=== PATIENT | female | born 1990 | race Caucasian/White ===

== ENCOUNTER → 2018-06-30 10:22 | Outpatient (CLI) | payer OTHER, SELFPAY ==
--- NOTE | 2018-06-30 10:27 | RAD_ITS ---
STUDY: X-RAY - LUMBAR SPINE REASON FOR EXAM: Female, 27 years old. Back pain TECHNIQUE: 5 view(s) of the lumbar spine were obtained. COMPARISON: None FINDINGS: Normal lumbar lordosis. There is no substantial scoliosis. There is a normal alignment of the vertebrae. Normal vertebral bodies and endplates. Normal disc space heights. There is no demonstrated fracture. There is no demonstrated spondylolysis of the pars interarticulares. The soft tissue structures are unremarkable. RAD/L/S Spine Min 4 Views IMPRESSION: Normal x-ray examination of the lumbar spine. Electronically Signed: William Dawson MD at 21:40 EST , Service support ,
== END ==
PROVIDERS: Family Provider Internal Medicine; PCP Internal Medicine; Visit Provider Family Medicine
DX: S33.5XXA Sprain of ligaments of lumbar spine, initial encounter (principal)
CPT/HCPCS: 72110

== ENCOUNTER 2018-07-12 18:30 | Outpatient (RCR) | payer OTHER, SELFPAY | END 2018-07-12 19:00 | disposition home or self-care (01) | LOC: PT 18:30 | PROVIDERS: Family Provider Family Medicine; PCP Family Medicine; Referring Provider Family Medicine; Visit Provider Family Medicine | DX: S33.5XXD Sprain of ligaments of lumbar spine, subsequent encounter (principal) ==

== ENCOUNTER → 2018-07-17 16:49 | Outpatient (CLI) | payer OTHER, SELFPAY ==
[2018-07-17 15:28] VITALS: BMI 32.0
[2018-07-19 17:13] LABS: HPV Reflexed? NOT INDICATED
== END ==
PROVIDERS: Family Provider Family Medicine; PCP Family Medicine; Referring Provider Obstetrics & Gynecology; Visit Provider Obstetrics & Gynecology
DX: Z12.4 Encounter for screening for malignant neoplasm of cervix (principal)
CPT/HCPCS: 87624; 88175; G0145

== ENCOUNTER → 2019-01-25 | Outpatient (CLI) | payer OTHER, SELFPAY ==
[2018-07-17 15:28] VITALS: BMI 32.0
[2019-01-25 17:31] LABS: Absolute Lymphocyte Count 3.81 X10^3/uL (0.83-4.51); Basophil# 0.03 X10^3/uL; Basophil% 0.3 % (0-1); Hematocrit 36.4 % (37-47); Hemoglobin 12.3 g/dL (12.0-15.0); Lymphocyte # 3.81 X10^3/ul (4.0); Lymphocyte % 38.4 % (19-41); Mean Corp Hgb Conc 33.8 g/dL (32-36); Mean Corpuscular Volume 85.8 fL (81-99); Mean Platelet Vol. 9.7 fl (6.2-12.0); Monocyte# 0.71 X10^3/uL; Monocyte% 7.2 % (0-10); NRBC Flagged by Analyzer 0 % (0-5); Neutrophil # 5.02 X10^3/uL (2.7-7.7); Neutrophil % 50.7 % (47-70); Platelet Count 404 K/mm3 (150-450); RBC Distribution Width CV 12.8 % (11.6-14.6); RBC Distribution Width SD 39.7 fl (35.1-43.9); Red Blood Count 4.24 M/mm3 (4.2-5.4); White Blood Count 9.9 K/mm3 (4.4-11.0)
[2019-01-25 18:18] LABS: Thyroid Stim Hormone (TSH) 1.39 uIU/mL (0.358-3.74)
== END | disposition home or self-care (01) ==
LOC: LAB.FUTURE 16:56
PROVIDERS: Family Provider Family Medicine; PCP Family Medicine; Visit Provider Family Medicine
DX: R53.83 Other fatigue (principal)
CPT/HCPCS: 36415; 84443; 85025

== ENCOUNTER → 2019-07-12 | Outpatient (CLI) | payer OTHER, SELFPAY ==
[2018-07-17 15:28] VITALS: BMI 32.0
--- NOTE | 2019-07-12 13:50 | US_ITS ---
STUDY: FIRST TRIMESTER OBSTETRICAL ULTRASOUND REASON FOR EXAM: Female, 28 years old VIABILITY LMP: May 24, 2019. TECHNIQUE: Transvaginal TECHNICAL QUALITY: Adequate. PRIOR ULTRASOUND: None. FINDINGS: There is visualization of a single gestational sac in a normal intrauterine position. The mean sac diameter (MSD) measures 2.56 cm, indicating an estimated gestational age (EGA) of 7 weeks, 5 days. The gestational sac shape is within normal limits. There is a visualized yolk sac. The yolk sac measures 4.3 mm. The placenta is non-visualized. There is visualization of a live embryo. The crown-rump length (CRL) measures 9 mm, indicating an estimated gestational age (EGA) of 7 weeks, 0 days. There is demonstrated cardiac activity with a heart rate of 119 bpm. The estimated gestation age (EGA) by LMP is 7 weeks, 0 days. The estimated date of delivery (AFUA) by LMP is February 28, 2020. The estimated gestation age (EGA) by US is 7 weeks, 3 days. The estimated date of delivery (AFUA) by US is February 25, 2020. The uterus measures 8.6 cm x 5.9 cm x 4.2 cm. There is no demonstrated uterine fibroid. The cervix is closed. The right ovary measures 3.7 cm x 1.6 cm x 2 cm.. There is a 1.2 cm x 0.8 cm x 1 cm follicle within it. There is no visualized right adnexal mass or complex lesion. The left ovary measures 4.2 cm x 3.5 cm x 2.4 cm. There is a 2 cm x 1.7 cm by 1.4 cm hypoechoic nodule within it most likely representing a involuting corpus luteum cyst. There is no visualized left adnexal mass or complex lesion. There is no fluid in the cul de sac. US/Init OB < 14Wks US IMPRESSION: Single live intrauterine gestation with a mean gestational age of 7 weeks and 3 days. Dominant follicle in the right ovary. Findings suggest left involuting corpus luteum cyst in the left ovary. Electronically Signed: Hermes Elkins, at 15:03 EST , Service support ,
== END | disposition home or self-care (01) ==
PROVIDERS: PCP Family Medicine; Referring Provider Obstetrics & Gynecology; Visit Provider Obstetrics & Gynecology
DX: O20.0 Threatened abortion (principal)
CPT/HCPCS: 76801

== ENCOUNTER → 2019-08-02 | Outpatient (CLI) | payer OTHER, SELFPAY ==
[2019-08-02 14:55] VITALS: BMI 32.0
[2019-08-02 15:28] LABS: Basophil# 0.04 X10^3/uL; Basophil% 0.2 % (0-1); Eosinophil# 0.28 X10^3/uL; Eosinophils% 1.7 % (0-5); Hematocrit 34.2 % (37-47); Hemoglobin 11.8 g/dL (12.0-15.0); Lymphocyte % 23.5 % (19-41); Mean Corp Hgb Conc 34.5 g/dL (32-36); Mean Corpuscular Hgb 28.9 pg (27.0-32.0); Mean Corpuscular Volume 83.6 fL (81-99); Mean Platelet Vol. 9.2 fl (6.2-12.0); Monocyte# 0.98 X10^3/uL; Monocyte% 6.1 % (0-10); NRBC Flagged by Analyzer 0 % (0-5); Neutrophil # 10.99 X10^3/uL (2.7-7.7); Platelet Count 404 K/mm3 (150-450); RBC Distribution Width CV 12.7 % (11.6-14.6); RBC Distribution Width SD 38.5 fl (35.1-43.9); Red Blood Count 4.09 M/mm3 (4.2-5.4); White Blood Count 16.2 K/mm3 (4.4-11.0)
[2019-08-02 16:05] LABS: Glucose Challenge Gest 1H 50g 110 mg/dL (70-140)
[2019-08-02 16:58] LABS: NATERA MAILED SPECIMEN
[2019-08-02 17:52] LABS: Amphetamine Urine VISTA NEGATIVE (<1000 ng/mL); Barbiturate Urine VISTA NEGATIVE (< 200 ng/mL); Benzodiazepine Urine VISTA NEGATIVE (< 200 ng/mL); Cocaine Urine VISTA NEGATIVE (< 300 ng/mL); Ecstacy Urine VISTA NEGATIVE (< 500 ng/mL); Methadone Urine VISTA NEGATIVE (< 300 ng/mL); PCP Urine VISTA NEGATIVE (< 25 ng/mL); THC Urine VISTA NEGATIVE (< 50 ng/mL); Vista UDS pH Range 5
[2019-08-02 21:20] LABS: Chlamydia Trachomatis by PCR Negative (Negative); Neisserai gonorrhoeae by PCR Negative (Negative); Probe Check PASS; Sample Adequacy Control PASS; Specimen Processing Control PASS
[2019-08-03 09:59] LABS: HIV - WCH Non-Reactive (Nonreactive); Hepatitis B Surface Antigen Non-Reactive (Nonreactive); Hepatitis C Antibody Non-Reactive (Nonreactive); Rubella IgG 7.8 IU/mL
[2019-08-09 02:23] LABS: Rapid Plasmin Reagin (RPR) NONREACTIVE (NONREACTIVE)
== END | disposition home or self-care (01) ==
PROVIDERS: PCP Family Medicine; Referring Provider Obstetrics & Gynecology; Visit Provider Obstetrics & Gynecology
DX: Z34.90 Encounter for supervision of normal pregnancy, unspecified, unspecified trimester (principal)
CPT/HCPCS: 36415; 80307; 82950; 85025; 86592; 86703; 86762; 86803; 86850; 86900; 86901; 87086; 87088; 87340; 87491; 87591

== ENCOUNTER → 2019-09-26 | Outpatient (CLI) | payer OTHER, SELFPAY ==
[2019-08-30 13:10] VITALS: BMI 32.0
--- NOTE | 2019-09-26 13:27 | US_ITS ---
STUDY: SECOND AND THIRD TRIMESTER OBSTETRICAL ULTRASOUND - LIMITED REASON FOR EXAM: Female, 29 years old spotting LMP: May 24, 2019. PRIOR ULTRASOUND: Comparison is made with prior study dated July 12, 2019. TECHNIQUE: Transabdominal and Transvaginal TECHNICAL QUALITY: Adequate. FINDINGS: There is a single intrauterine fetus. The fetus is in a transverse lie with the head on the maternal right side. There is demonstrated cardiac activity with a heart rate of 156 bpm. There is a normal amniotic fluid volume. The largest amniotic fluid pocket measures 5.6 cm x 3.5 cm. The amniotic fluid index (MANUEL) is within normal limits. The placenta is anterior with a complete previa. There are Grade 0 placental changes. The cervix measures 3.8 cm in length. BIOMETRY: BPD: 4.13 cm: 18 weeks, 4 days HC: 15.28 cm: 18 weeks, 2 days AC: 13.42 cm: 19 weeks, 0 days FL: 2.54 cm: 17 weeks, 5 days Age by LMP: 17 weeks, 6 days. AFUA by LMP: February 28, 2020. age by prior US: 18 weeks, 2 days. AFUA by prior US: February 25, 2020. age by current US: 18 weeks, 3 days. AFUA by current US: February 24, 2020. Estimated weight: 235 grams, +/- 34 grams, 74 percentile. US/OB Limited With Biometrics IMPRESSION: Single live uterine gestation with a mean gestational age of 18 weeks and 2 days. There is a complete anterior placenta previa. Electronically Signed: Hermes Elkins, at 14:52 EDT , Service support ,
== END | disposition home or self-care (01) ==
LOC: US 13:27
PROVIDERS: PCP Family Medicine; Referring Provider Obstetrics & Gynecology; Visit Provider Obstetrics & Gynecology
DX: O46.90 Antepartum hemorrhage, unspecified, unspecified trimester (principal); Z3A.00 Weeks of gestation of pregnancy not specified
CPT/HCPCS: 76816; 76817

== ENCOUNTER → 2019-11-01 | Outpatient (CLI) | payer OTHER, SELFPAY ==
[2019-08-30 13:10] VITALS: BMI 32.0
--- NOTE | 2019-11-01 16:26 | US_ITS ---
STUDY: SECOND AND THIRD TRIMESTER OBSTETRICAL ULTRASOUND REASON FOR EXAM: Female, 29 years old LIGHT SPOTTING X 2 DAYS LMP: 05/24/2019 TECHNIQUE: Transabdominal TECHNICAL QUALITY: Adequate. PRIOR ULTRASOUND: 09/26/2019. FINDINGS: There is a single intrauterine fetus. The fetus is in a cephalic presentation. There is demonstrated cardiac activity with a heart rate of 152 bpm. There is a normal amniotic fluid volume. The largest amniotic fluid pocket measures 3.6 cm. The placenta is anterior in location and is not low lying. There are Grade 1 placental changes. The cervix measures 3.1 cm in length. The bilateral adnexal regions are normal. BIOMETRY: BPD: 5.5: 22 weeks, 5 days HC: 21.8: 23 weeks, 6 days AC: 18.7: 23 weeks, 4 days FL: 4.4: 24 weeks, 4 days CI: FL/BPD: FL/HC: FL/AC: HC/AC: age by current US: 23 weeks, 5 days. AFUA by current US: 02/23/2020. Estimated weight: 637 grams, +/- 93 grams, 84 %. age by prior US: weeks, days. AFUA by prior US: . Age by LMP: 23 weeks, 0 days. AFUA by LMP: 02/28/2020. US/OB Limited With Biometrics IMPRESSION: Single live fetus in a vertex presentation. survey not performed on this exam. Placenta is grade 1 and is not low-lying. Cervix is closed. age by current US: 23 weeks, 5 days. AFUA by current US: 02/23/2020. Estimated weight: 637 grams, +/- 93 grams, 84 %. Electronically Signed: Nitesh Lee MD at 19:12 EDT , Service support ,
== END | disposition home or self-care (01) ==
PROVIDERS: PCP Family Medicine; Referring Provider Obstetrics & Gynecology; Visit Provider Obstetrics & Gynecology
DX: O44.12 Complete placenta previa with hemorrhage, second trimester (principal); Z3A.00 Weeks of gestation of pregnancy not specified
CPT/HCPCS: 76816; 76817

== ENCOUNTER → 2019-12-05 | Outpatient (CLI) | payer OTHER, SELFPAY ==
[2019-11-08 15:31] VITALS: BMI 32.0
[2019-12-05 14:42] LABS: Absolute Lymphocyte Count 3.11 X10^3/uL (0.83-4.51); Absolute Neutrophil Count 11.2 X10^3/uL (2.0-7.7); Basophil# 0.05 X10^3/uL; Basophil% 0.3 % (0-1); Eosinophil# 0.17 X10^3/uL; Eosinophils% 1.1 % (0-5); Hematocrit 30.3 % (37-47); Hemoglobin 10.1 g/dL (12.0-15.0); Lymphocyte # 3.11 X10^3/ul (4.0); Lymphocyte % 19.2 % (19-41); Mean Corp Hgb Conc 33.3 g/dL (32-36); Mean Corpuscular Hgb 29.1 pg (27.0-32.0); Mean Corpuscular Volume 87.3 fL (81-99); Mean Platelet Vol. 9.5 fl (6.2-12.0); Monocyte# 1.04 X10^3/uL; Monocyte% 6.4 % (0-10); NRBC Flagged by Analyzer 0 % (0-5); Neutrophil # 11.22 X10^3/uL (2.7-7.7); Neutrophil % 69.3 % (47-70); Platelet Count 361 K/mm3 (150-450); RBC Distribution Width CV 13.6 % (11.6-14.6); RBC Distribution Width SD 42.1 fl (35.1-43.9); Red Blood Count 3.47 M/mm3 (4.2-5.4); White Blood Count 16.2 K/mm3 (4.4-11.0)
[2019-12-05 14:53] LABS: Glucose Challenge Gest 1H 50g 135 mg/dL (70-140)
== END | disposition home or self-care (01) ==
LOC: PAVLAB 14:19
PROVIDERS: PCP Family Medicine; Referring Provider Obstetrics & Gynecology; Visit Provider Obstetrics & Gynecology
DX: Z34.90 Encounter for supervision of normal pregnancy, unspecified, unspecified trimester (principal)
CPT/HCPCS: 36415; 82950; 85025

== ENCOUNTER → 2019-12-07 | Outpatient (CLI) | payer OTHER, SELFPAY ==
[2019-12-05 16:25] VITALS: BMI 32.0
[2019-12-07 08:07] LABS: Glucose GTT-Gestation. Fasting 84 mg/dL (<105)
[2019-12-07 08:24] LABS: Glucose GTT-Gestational 1 Hr 159 mg/dL (<190)
[2019-12-07 10:07] LABS: Glucose GTT-Gestational 2 Hr 148 mg/dL (<165)
[2019-12-07 11:08] LABS: Glucose GTT-Gestational 3 Hr 55 L (<145)
== END | disposition home or self-care (01) ==
LOC: LAB 06:46
PROVIDERS: PCP Family Medicine; Referring Provider Nurse Practitioner Women's Health; Visit Provider Nurse Practitioner Women's Health
DX: O99.810 Abnormal glucose complicating pregnancy (principal); Z3A.00 Weeks of gestation of pregnancy not specified
CPT/HCPCS: 36415; 82951; 82952

== ENCOUNTER → 2020-02-01 | Outpatient (CLI) | payer OTHER, SELFPAY ==
[2020-02-01 15:51] VITALS: BMI 32.0
== END | disposition home or self-care (01) ==
LOC: LABSPEC 16:27
PROVIDERS: PCP Family Medicine; Referring Provider Obstetrics & Gynecology; Visit Provider Obstetrics & Gynecology
DX: Z34.00 Encounter for supervision of normal first pregnancy, unspecified trimester (principal)
CPT/HCPCS: 87077; 87081; 87186

== ENCOUNTER 2020-02-14 12:25 | Outpatient (CLI) | payer OTHER, SELFPAY ==
[2020-02-08 15:12] VITALS: BMI 32.0
[2020-02-14] VITALS (11 sets, daily range): BP systolic 77–136; BP diastolic 40–92; PULSE 83–129; TEMP 36.8; O2SAT 99; BMI 38.2
[2020-02-14 13:07] LABS: Hematocrit 29.8 % (37-47); Hemoglobin 10.4 g/dL (12.0-15.0); Mean Corp Hgb Conc 34.9 g/dL (32-36); Mean Corpuscular Hgb 29.5 pg (27.0-32.0); Mean Corpuscular Volume 84.7 fL (81-99); Platelet Count 338 K/mm3 (150-450); RBC Distribution Width CV 13.8 % (11.6-14.6); RBC Distribution Width SD 42.2 fl (35.1-43.9); Red Blood Count 3.52 M/mm3 (4.2-5.4); White Blood Count 14.2 K/mm3 (4.4-11.0)
[2020-02-14 13:15] LABS: Prothrombin Time (Protime)PT. 12.3 SECONDS (11.7-14.9)
[2020-02-14 13:20] LABS: AST(SGOT) 15 U/L (15-37); Alanine Aminotransfer ALT/SGPT 18 U/L (13-56); Creatinine, Serum 0.86 mg/dL (0.55-1.02); EST Glomerular Filtration Rate 83 mL/min (>60); Est Glom Filt Rate - Afr Amer 101 mL/min (>60); Estimated Creatinine Clearance 94.71 ml/min; Protein, Urine (Random) 14.1 mg/dL (<11.9); Protein:Creat Ratio 266 mg/g CRE (0-200); Uric Acid 5.4 mg/dL (2.6-6.0)
--- NOTE | 2020-02-14 13:23 | EKG12_ITS ---
Test Reason : Blood Pressure : / mmHG Vent. Rate : 096 BPM Atrial Rate : 096 BPM P-R Int : 138 ms QRS Dur : 086 ms QT Int : 350 ms P-R-T Axes : 027 024 -01 degrees QTc Int : 442 ms Normal sinus rhythm Normal ECG No previous ECGs available Confirmed by JAZMYNE MOY, REBECCA ([id number]), commissioning editor JAZMINE KINGSLEY ([id number]) on 02/19/2020 12:44:30 PM Referred By: Michelle Palomares Confirmed By:REBECCA SAMANO MD
--- NOTE | 2020-02-14 14:08 | OB.TRI.NOTE ---
- Problem List (1) Transient hypertension of in third trimester Status: Acute (2) Abnormal glucose tolerance affecting , antepartum Status: Acute Comment: 3 hr. normal (3) Anemia affecting , antepartum Status: Acute Comment: daily Fe alternate from PNV, repeat cbc 4 weeks (4) Anxiety during Status: Acute Comment: zoloft, counseling encouraged (5) Echogenic intracardiac focus of fetus on ultrasound Status: Acute Comment: normal NIPT (6) Family historic risk of congenital abnormality Status: Acute Qualifiers: Fetus number: single or unspecified fetus Qualified Code(s): O35.8XX0 - Maternal care for other (suspected) abnormality and damage, not applicable or unspecified Comment: hemifacial microsomia paternal history. (7) Obesity affecting Status: Acute Qualifiers: Trimester: first trimester Qualified Code(s): O99.211 - Obesity complicating , first trimester Comment: nl 1 tm glucola. encouraged healthy weight gain (8) Positive GBS test Status: Acute Comment: tx PCN in labor (9) Status: Acute Qualifiers: Weeks of gestation: 37 weeks Qualified Code(s): Z3A.37 - 37 weeks gestation of Comment: NIPT low risk. declined carrier and ntd screening. anatomy reviewed. (10) Skin lesion of hand Status: Acute Comment: Raised lesion noted on thenar eminence of left hand with darkened external skin and pearly center. PCP previously evaluated and said to follow, but area has become larger. Referral placed to dermatology. (11) Supervision of high-risk Status: Acute Comment: PRR AFUA 02/28/20 girl [place] Jonah (12) Pyelectasis of fetus on ultrasound Status: Resolved Comment: FU US @ 32 wks per MFM, normal NIPT, right kidney 7/6mm and left 4.2mm, rpt US shows resolved per office - awaiting official addendum US 01/02 - resolved History of Present Illness Date of Service: 02/14/20 Was patient seen by the physician?: Yes Reason For Visit: R/O PRE E Date of Service: 02/14/20 Final AFUA: 02/28/20 Gestational age: 38 Weeks and 0 Days History of Present Illness: 29yo G1 at 38 weeks gestation presenting with elevated BPs at home. Denies headaches, vision changes, chest pain, shortness of breath, RUQ pain. Does endorse mild reflux. While in triage, she had an episode of tachycardia, diaphoresis, and hypotension. This resolved spontaneously. There were no identifiable triggers for the episode. Allergies No Known Allergies Allergy (Verified 02/14/20 12:46) - Pertinent Past Medical History Medical History: Past Medical History (Last Reviewed 02/08/20 @ 15:11 by Kavitha Beebe) Anemia Anxiety Surgical History: Past Surgical History (Last Reviewed 02/08/20 @ 15:11 by Kavitha Beebe) History of wisdom tooth extraction, class II edentulism Laboratory Studies: Laboratory Tests 02/14/20 02/14/20 02/14/20 Range/Units 12:55 12:55 12:55 WBC (4.4-11.0) K/mm3 RBC (4.2-5.4) M/mm3 Hgb (12.0-15.0) g/dL Hct (37-47) % MCV (81-99) fL MCH (27.0-32.0) pg MCHC (32-36) g/dL RDW Std Deviation (35.1-43.9) fl RDW Coeff of Tali (11.6-14.6) % Plt Count (150-450) K/mm3 MPV (6.2-12.0) fl PT 12.3 (11.7-14.9) SECONDS INR 1.0 APTT 25.0 (24.1-36.2) Seconds Creatinine 0.86 (0.55-1.02) mg/dL Estim Creat Clear Calc 94.71 ml/min Est GFR (MDRD) Af Amer 101 (>60) mL/min Est GFR (MDRD) Non-Af 83 (>60) mL/min Uric Acid 5.4 (2.6-6.0) mg/dL AST 15 (15-37) U/L ALT 18 (13-56) U/L U Random Total Protein 14.1 H (<11.9) mg/dL Urine Creatinine 53.10 (NO RANGE EST.) mg/dL Protein/Creatinin Ratio 266 H (0-200) mg/g CRE 02/14/20 Range/Units 12:55 WBC 14.2 H (4.4-11.0) K/mm3 RBC 3.52 L (4.2-5.4) M/mm3 Hgb 10.4 L (12.0-15.0) g/dL Hct 29.8 L (37-47) % MCV 84.7 (81-99) fL MCH 29.5 (27.0-32.0) pg MCHC 34.9 (32-36) g/dL RDW Std Deviation 42.2 (35.1-43.9) fl RDW Coeff of Tali 13.8 (11.6-14.6) % Plt Count 338 (150-450) K/mm3 MPV 10.0 (6.2-12.0) fl PT (11.7-14.9) SECONDS INR APTT (24.1-36.2) Seconds Creatinine (0.55-1.02) mg/dL Estim Creat Clear Calc ml/min Est GFR (MDRD) Af Amer (>60) mL/min Est GFR (MDRD) Non-Af (>60) mL/min Uric Acid (2.6-6.0) mg/dL AST (15-37) U/L ALT (13-56) U/L U Random Total Protein (<11.9) mg/dL Urine Creatinine (NO RANGE EST.) mg/dL Protein/Creatinin Ratio (0-200) mg/g CRE Review of Systems Constitutional: Denies: Chills, Fever HEENT: Denies: Head Aches, Visual Changes Cardiovascular: Denies: Chest Pain, Palpitations Respiratory: Denies: Cough, Shortness of Breath Gastrointestinal: Denies: Abdominal Pain, Nausea, Vomiting Genitourinary: Denies: Dysuria Neurological: Denies: Numbness, Tingling Psychiatric: Denies: Anxiety, Depression Physical Exam Vitals: Vital Signs Temp Pulse BP Pulse Ox 98.2 F 93 125/70 H 99 02/14/20 12:39 02/14/20 13:59 02/14/20 13:59 02/14/20 12:39 General: Alert, Oriented x3, Cooperative, No apparent distress, Well developed, Well nourished HEENT: Atraumatic, PERRLA, EOMI, Normocephalic Cardiovascular: Regular rate, Regular Rhythm Lungs: Normal air movement Abdomen: Soft, Non Tender, Non-Distended, Gravid, Appropriate for Gestational Age Neurological: Cranial nerves II-XII grossly intact, Neuro grossly intact Estimated gestational size: Appropriate for gestational size Presentation: Cephalic NST - FHR Rate Baby A Baseline: 150 Variability:: Moderate Accelerations:: 15 x 15 Decelerations:: None NST Reactive:: Yes FHR Category:: Category I Uterine Activity:: none Impression/Plan 29yo G1 at 38 weeks presenting for elevated BPs 1. Transient hypertension - increased BPs at home. Normotensive throughout triage course - Asymptomatic - Labs normal - NST reactive - Patient had episode of tachycardia and diaphoresis in triage. This resolved spontaneously and she was asymptomatic aside from sweats. Hypotensive during episode. Most consistent with vagal episode. After this, vitals remained normal and FHT remained Cat I. - Return precautions reviewed. Discharged to home in stable condition Multi Select Codes - Visit Charges Office Visit/Consults: 82891 OV L3 Est - Urinary/Genital Urinary/Genital CPT Codes: 92722-09 non-stress test Interp
[2020-02-14 14:31] LABS: Mucous, Urine 0 SEEN /hpf (<or=2+); Red Blood Cells-Urine 0 SEEN /hpf (0-5)
[2020-02-14 14:41] LABS: Color, Urine Straw (Yellow); Glucose, Dipstick Normal (Normal); Ketone-Dipstick Negative (Negative); Leukocyte Esterase-Dipstick 25 /ul (Negative); Nitrite-Dipstick Negative (Negative); Occult Blood-Urine Negative /ul (Negative); Protein-Dipstick 30 mg/dl (Negative); Urine Bilirubin Dipstick Negative (Negative); Urine Clarity Clear (Clear); Urine Urobilinogen Normal (Normal)
[2020-02-14 14:46] LABS: Bedside Glucose 80 mg/dL (70-110)
[2020-02-14 14:50] LABS: Squamous Epithelial Cells - UA 0-5 SEEN /hpf (5-10); White Blood Cells 0-5 SEEN /hpf (0-5)
[2020-02-14 14:51] LABS: Bacteria 1+ /hpf (None Seen)
== END 2020-02-14 14:15 | disposition home or self-care (01) ==
PROVIDERS: PCP Family Medicine; Referring Provider Obstetrics & Gynecology; Visit Provider Obstetrics & Gynecology
DX: O16.3 Unspecified maternal hypertension, third trimester (principal); Z3A.38 38 weeks gestation of pregnancy; O26.893 Other specified pregnancy related conditions, third trimester; R61 Generalized hyperhidrosis
CPT/HCPCS: 36415; 59025; 59050; 81001; 82565; 82570; 82962; 84156; 84450; 84460; 84550; 85027; 85610; 85730; 93005; 99218; G0378

== ENCOUNTER 2020-02-15 15:55 | Inpatient (IN) | payer OTHER, SELFPAY ==
[2020-01-17 16:12] VITALS: BMI 32.0
[2020-02-15] VITALS (13 sets, daily range): BP systolic 137–157; BP diastolic 72–96; PULSE 106–121; TEMP 36.6–37.1; O2SAT 98; BMI 38.2
--- NOTE | 2020-02-15 17:11 | HP.PCM_ITS ---
- Problem List (1) Abnormal glucose tolerance affecting , antepartum Status: Acute Comment: 3 hr. normal (2) Anemia affecting , antepartum Status: Acute Comment: daily Fe alternate from PNV, repeat cbc 4 weeks (3) Anxiety during Status: Acute Comment: zoloft, counseling encouraged (4) Echogenic intracardiac focus of fetus on ultrasound Status: Acute Comment: normal NIPT (5) Family historic risk of congenital abnormality Status: Acute Qualifiers: Comment: hemifacial microsomia paternal history. (6) Obesity affecting Status: Acute Qualifiers: Comment: nl 1 tm glucola. encouraged healthy weight gain (7) Positive GBS test Status: Acute Comment: tx PCN in labor (8) Pre-eclampsia during in third trimester, antepartum Status: Acute Comment: Patient with persistent mild range BPs in 140s-150s at home. BP 160/98 in office today. P:C elevated in triage yesterday. Discussed that with persistent elevated BPs at home and severe in office today, recommend induction for PreE without severe features. Discussed if persistently severe, would require mag for seizure ppx. (9) Status: Acute Qualifiers: Comment: NIPT low risk. declined carrier and ntd screening. anatomy reviewed. (10) Skin lesion of hand Status: Acute Comment: Raised lesion noted on thenar eminence of left hand with darkened external skin and pearly center. PCP previously evaluated and said to follow, but area has become larger. Referral placed to dermatology. (11) Supervision of high-risk Status: Acute Comment: PRR AFUA 02/28/20 girl [place] Jonah (12) Transient hypertension of in third trimester Status: Acute (13) Pyelectasis of fetus on ultrasound Status: Resolved Comment: FU US @ 32 wks per MFM, normal NIPT, right kidney 7/6mm and left 4.2mm, rpt US shows resolved per office - awaiting official addendum US 01/02 - resolved History and Physical Date of Admission: 02/15/20 Intake Vital Signs 02/15/20 BMI 38.2 02/15/20 Height 5 ft 7 in 02/15/20 Weight: 246 lb 4 oz 02/15/20 BMI 38.5 02/15/20 BP 160/98 H Intake Visit Reasons: 38 WK [address] Required: No Is patient in pain?: No Allergies No Known Allergies Allergy (Verified 02/14/20 12:46) Medications multivitamin no.47-iron fum 27 mg-folate no.1 1 mg-dha 300 mg capsule 1 cap PO DAILY 08/02/19 [History Confirmed 02/15/20] Pnv No.95/Ferrous Fum/Folic AC [ Vitamin Tablet] 1 tab PO DAILY 02/14/20 [History Confirmed 02/15/20] Sertraline HCl [Zoloft] 50 mg PO DAILY 02/14/20 [History Confirmed 02/15/20] nitrofurantoin monohydrate/macrocrystals 100 mg capsule 100 mg PO Q12H 7 Days #14 cap 02/14/20 [Rx Confirmed 02/15/20] Last Menstral Period: 05/24/19 Zika: Zika virus screening: Negative : No PFSH PFSH Medical History Anemia (Acute) Anxiety (Acute) Surgical History History of wisdom tooth extraction, class II edentulism (Acute) Social History (Updated 02/15/20 @ 16:[address] Michelle Palomares MD) adopted: No household members: spouse housing: house current occupational status: employed current occupation: [employer] pets and animals: Yes history of recent travel: No sexually active: Yes Smoking Status: Never smoker second hand exposure: No alcohol intake: never substance use type: does not use caffeine: Yes what type of physical activity do you participate in: walking seatbelt use: always do you feel safe at home: Yes additional social history: Jonah- [employer] Pregancy History 1 Elective abortions Hx Para Spontaneous abortions Hx # Term Pregnancies Ectopic pregnancies Hx # Pregnancies Multiple births # of living children HPI 38 WK OB: Details: GELACIO FERRER is a 29 year old who presents for routine OB visit. BP severe range in office. BPs persistently 140s-150s/90s at home. Had headache last night, but none currently. Denies vision changes, chest pain, shortness of breath, lightheadedness, dizziness. OB Visit AFUA Calculator Estimated Delivery Date Method Current WG Current Estimate 02/28/20 LMP (Certain) 38w 1d Other Estimates 02/25/20 Ultrasound #1 38w 4d Expected Delivery Route/Plan Labor Preferences- CB/BF classes: 01/04 classes labor support person: Jonah labor intervention preferences: desires minimal intervention with hydrotherapy pain management options preferred: desires natural labor, but open to epidural cut cord/dad catch: yes cord : yes - wants to pump PP control planned: OCPs discussed possible routes of delivery and associated risks: discussed possible delivery modalities and possible indications for each including R/B/A of , VAVD, and CS. questions answered. special requests: Specific Issue/Plans flu vaccine: given tdap vaccine: given rhogam: na LARC form signed: declined movement and labor precautions reviewed. Problem list reviewed and updated with the most current plan of care details and appropriate orders placed. Relevant counseling for the gestational age provided. Continue routine care and follow up unless otherwise noted in visit notes/problem list details Initial Weight: 215 lb Date EGA Weight BP Urine Prot Glucose FHR FuHt Pres Dilation Effaced St Visit Note 08/30/19 14w 0d 219 lb 6 oz (+4 lb 6 oz) 132/78 Negative Negative 150 SM- no vb cramping some increased anxiety 11/08/19 24w 0d 234 lb (+19 lb) 134/80 Negative Negative 150 SM- no vb since last week, some good fm no regular ctx 12/05/19 27w 6d 237 lb 2 oz (+22 lb 2 oz) 126/78 Negative Negative 145 28 MH-No VB, LOF. Good FM. 28 wk labs, tdap. 12/21/19 30w 1d 239 lb (+24 lb) 132/80 Negative Negative 140 30 SM- no vb lof good fm no regular ctx 01/03/20 32w 0d 240 lb (+25 lb) 124/74 124/74 150 32 GP - denies LOF/VB/DFM/Ctx. Lesion noted on hand. Referral placed for derm. 01/17/20 34w 0d 246 lb 2 oz (+31 lb 2 oz) 120/80 Negative Negative 150 34 Sm- no vb lof good fm no regular ctx, saw derm. will be removed after delivery 02/01/20 36w 1d 246 lb (+31 lb) Negative Negative 150 36 Cephalic SM- no vb lof good fm nor egular ctx 02/08/20 37w 1d 245 lb 2 oz (+30 lb 2 oz) 138/88 Negative Negative 150 37 Cephalic 0 GP - no LOF, VB, DFM, ctx. Denies complaints. 02/15/20 38w 1d 246 lb 4 oz (+31 lb 4 oz) 160/98 Negative Negative ACOG First Trimester First Trimester: Desire for , Alcohol, Tobacco Cessation, Illicit/Recreational Drug/Substance Use, Intimate Partner Violence, Barriers to care, Unstable Housing, Communication Barriers, Environmental/Work Hazards, Anticipated Course of Care, Toxoplasmosis Precations, Use of Any medications, Sexual activity, Exercise, Dental Care, Sauna/Hot tub use, Seat Belt use, Childbirth classes/Hospital facilities, , Travel, Indications for US and Screening for Aneuploidy Diagnostics Diagnostics Diagnostics Blood Type A POSITIVE 08/02/19 Antibody Screen NEGATIVE 08/02/19 Gest Glucose Tolerance MG/DL 12/07/19 Glucose 1 Hr 50 gm 135 mg/dL (70-140) 12/05/19 HIV 1&2 Antibody Non-Reactive (Nonreactive) 08/02/19 Rubella IgG Antibody 7.8 IU/mL 08/02/19 Hgb 10.4 g/dL (12.0-15.0) L 02/14/20 Hct 29.8 % (37-47) L 02/14/20 RPR NONREACTIVE (NONREACTIVE) 08/02/19 Details: HIV: Urine Culture: Sequential Screen: NIPT Screen: ROS Const Reports fatigue, Denies fever(s), Denies headache(s), Denies increased appetite, Denies weight gain ENT Denies dizziness or headache(s) Card Denies chest pain, Denies shortness of breath Resp Denies shortness of breath GI Denies constipation, Denies heartburn, Denies nausea, Denies vomiting Denies abnormal vaginal bleeding, Denies painful urination, Denies pelvic pain, Denies vaginal discharge, Denies vaginal odor, Denies vaginal itching Musc Denies tingling Skin/Breast Reports breast pain, Reports breast swelling Neuro No dizziness, No localized weakness, No headache(s), No tingling Psych Denies anxiety, Denies depression Endo Reports fatigue Exam Const General: cooperative, healthy appearing, comfortable, no acute distress, well developed, well groomed Nutritional Appearance: average body habitus, well nourished Orientation: alert, awake, oriented x3 HENMT Head: normal to inspection, normocephalic, atraumatic Eyes Pupils: PERRL, accommodation normal Resp Effort & Inspection: normal respiratory effort, able to speak in complete sentences, symmetric chest movement Cardio Rate: regular rate GI Palpation: soft, no guarding, no masses, nontender Skin General: no rashes or lesions noted, elasticity normal, turgor normal Neuro General: alert, awake, oriented x3 Cranial Nerves: CN's II-XI intact bilaterally, sense of smell intact, PERRL, accommodation normal, EOM intact bilaterally Speech: speech normal Gait: normal gait Psych Appearance: grossly normal, well kempt Mental Status: mental status grossly normal Mood: congruent mood Affect: normal affect Speech and Movement: speech and movement normal Attitude: cooperative Thought Process: normal Thought Content: normal Judgment: judgment good Results POC Urinalysis 2 Dip (Clinic) Office Urine Glucose Negative Last Edit by Kavitha Beebe on 02/15/20 15:39 Office Urine Protein Negative Last Edit by Kavitha Beebe on 02/15/20 15:39 Assessment & Plan Problems 1. Transient hypertension of in third trimester O13.3 2. Positive GBS test B95.1 tx PCN in labor 3. Skin lesion of hand L98.9 Raised lesion noted on thenar eminence of left hand with darkened external skin and pearly center. PCP previously evaluated and said to follow, but area has become larger. Referral placed to dermatology. 4. Echogenic intracardiac focus of fetus on ultrasound O28.3 normal NIPT 5. Pyelectasis of fetus on ultrasound O35.8XX0 FU US @ 32 wks per MFM, normal NIPT, right kidney 7/6mm and left 4.2mm, rpt US shows resolved per office - awaiting official addendum US 01/02 - resolved 6. Supervision of high-risk O09.90 PRR AFUA 02/28/20 girl [place] 7. Abnormal glucose tolerance affecting , antepartum O99.810 3 hr. normal 8. Anemia affecting , antepartum O99.019 daily Fe alternate from PNV, repeat cbc 4 weeks 9. Family historic risk of congenital abnormality O35.8XX0 hemifacial microsomia paternal history. 10. Obesity affecting O99.210 nl 1 tm glucola. encouraged healthy weight gain 11. Anxiety during O99.340; F41.9 zoloft, counseling encouraged 12. 38 weeks gestation of Z3A.38 NIPT low risk. declined carrier and ntd screening. anatomy reviewed. 13. Pre-eclampsia during in third trimester, antepartum O14.93 Patient with persistent mild range BPs in 140s-150s at home. BP 160/98 in office today. P:C elevated in triage yesterday. Discussed that with persistent elevated BPs at home and severe in office today, recommend induction for PreE wi thout severe features. Discussed if persistently severe, would require mag for seizure ppx. Orders Orders: POC Urinalysis 2 Dip (Clinic) Today Protein+Creatinine Ratio,Urine Today O13.3 Plan Detail Additional Comments Patient sent to L&D for IOL for PreE without severe features - BPs persistently mild range, Procardia XL 30mg started. Cervix /-3/med/post - will plan for cytotec to start. Will recheck after cytotec to assess for calderón bulb. Pain management: desires natural labor, but open to epidural. GBS positive plan IV PCN. Management of any complications: PreE, pyelectasis - now resolved, I have reviewed the [facility] and made any clinically relevant updates. Coding Level of Care Code OB Routine Diagnoses Transient hypertension of in third trimester O13.3 Positive GBS test B95.1 Skin lesion of hand L98.9 Echogenic intracardiac focus of fetus on ultrasound O28.3 Pyelectasis of fetus on ultrasound O35.8XX0 Supervision of high-risk O09.90 Abnormal glucose tolerance affecting , antepartum O99.810 Anemia affecting , antepartum O99.019 Family historic risk of congenital abnormality O35.8XX0 Obesity affecting O99.210 Anxiety during O99.340; F41.9 38 weeks gestation of Z3A.38 ??Weeks of gestation: 38 weeks Pre-eclampsia during in third trimester, antepartum O14.93 UPDATE- I have seen the patient and performed any clinically relevant updates to the history and physical exam. Michelle Palomares MD
[2020-02-15] MEDS: NIFEdipine 30 MG Tablet PO ×2 (17:29→17:40)
[2020-02-15 17:33] LABS: Hematocrit 29.3 % (37-47); Hemoglobin 10.1 g/dL (12.0-15.0); Mean Corp Hgb Conc 34.5 g/dL (32-36); Mean Corpuscular Hgb 29.8 pg (27.0-32.0); Mean Corpuscular Volume 86.4 fL (81-99); Platelet Count 350 K/mm3 (150-450); RBC Distribution Width CV 13.9 % (11.6-14.6); RBC Distribution Width SD 43.1 fl (35.1-43.9); Red Blood Count 3.39 M/mm3 (4.2-5.4); White Blood Count 17.2 K/mm3 (4.4-11.0)
[2020-02-15 17:45] LABS: Partial Thromboplast Time 25.5 Seconds (24.1-36.2); Prothrombin Time (Protime)PT. 12.2 SECONDS (11.7-14.9)
[2020-02-15 18:09] LABS: AST(SGOT) 24 U/L (15-37); Alanine Aminotransfer ALT/SGPT 18 U/L (13-56); Creatinine, Serum 0.84 mg/dL (0.55-1.02); EST Glomerular Filtration Rate 85 mL/min (>60); Est Glom Filt Rate - Afr Amer 103 mL/min (>60); Estimated Creatinine Clearance 96.96 ml/min; Uric Acid 5.4 mg/dL (2.6-6.0)
[2020-02-15] MEDS: miSOPROStol 25 MCG TABLET VAGINAL (20:29)
[2020-02-16] VITALS (25 sets, daily range): BP systolic 128–143; BP diastolic 74–87; PULSE 93–109; TEMP 36.1–37.6; O2SAT 97–100
[2020-02-16] MEDS: miSOPROStol 25 MCG TABLET VAGINAL ×3 (00:31→10:13)
[2020-02-16] MEDS: 0.9% Normal Saline Single 100 ML IV.SOLN. IY (10:14)
[2020-02-16] MEDS: 0.9% Saline Lock 10 ML Syringe IV (14:57)
[2020-02-16] MEDS: Lactated Ringers 1,000 ML 50 ML IV (14:58)
[2020-02-16] MEDS: Oxytocin 30 units/NS 500 ml 30 UNITS/500 ML IV.SOLN IV (15:00)
[2020-02-16] MEDS: NIFEdipine 30 MG Tablet PO (17:18)
[2020-02-16] MEDS: Lactated Ringers 500 ML 999 ML IV (23:00)
[2020-02-17] VITALS (45 sets, daily range): BP systolic 118–145; BP diastolic 71–99; PULSE 83–117; RESP 14–18; TEMP 36.2–37.3; O2SAT 96–100
--- NOTE | 2020-02-17 09:15 | PCM.PN.BLA ---
Progress Note Patient discussed with RN. AROMed this am for clear fluid and IUPC placed. MVUs inadequate. Will plan to titrate pitocin above 20 mls/hr with max dose of 30 mls/hr. FHT Cat I. Contractions q2-5min. STROKE Vital Signs/Narrative: Vital Signs Temp Pulse BP Pulse Ox 02/17/20 08:36 98.1 F 02/17/20 08:35 98.0 F 101 H 129/83 H 99 02/17/20 07:25 98.1 F 02/17/20 07:23 98.9 F 107 H 137/80 H 98 02/17/20 06:27 90 02/17/20 06:26 98.1 F 111 H 138/91 H 99 02/17/20 05:26 98.2 F 100 139/89 H 98
[2020-02-17] MEDS: Lactated Ringers 1,000 ML 50 ML IV (10:51)
[2020-02-17] MEDS: Oxytocin 30 units/NS 500 ml 30 UNITS/500 ML IV.SOLN IV (14:12)
[2020-02-17] MEDS: NIFEdipine 30 MG Tablet PO (16:47)
--- NOTE | 2020-02-17 18:29 | PN_ITS ---
Progress Note Patient with protracted induction course. Started induction 02/14. Made change to 2.5 cm at 1000 02/15. Has made no further cervical change since this time. Has been on pitocin since 1500 on 02/15 and has yet to feel pain more than mild cramping. Have allowed pitocin break x2 throughout this time and have titrated pitocin to 20 and 30 previously without patient feeling pain. Membranes ruptured since 0800 this am and patient remains comfortable with no contractions and only mild cramping. Pitocin currently at 14 and patient aleksandar every 5 minutes, but denies any pain or discomfort at this time. Since yesterday, only cervical change was from 2.5 to 3cm. Discussed with patient that we can allow for additional 1.5 hours to allow her to meet criteria for failed induction, but as she is back up to 14ms/hr of pitocin and she still is not feeling contractions, I feel that it is reasonable to proceed with primary for failed induct ion at this time. Patient voices desire to proceed with delivery. Risks, benefits, indications, and alternatives to delivery discussed with patient including bleeding, infection, and visceral or vascular injury. She voices understanding and agrees to proceed. As baby is category 1, will proceed as soon as able but will allow for additional time to proceed in a controlled manner. STROKE Vital Signs/Narrative: Vital Signs Temp Pulse Resp BP Pulse Ox 02/17/20 18:22 97.9 F 106 H 100 02/17/20 18:21 111 H 145/99 H 02/17/20 18:20 97.9 F 110 H 16 145/99 H 100 02/17/20 17:50 97.9 F 02/17/20 17:47 109 H 138/82 H 02/17/20 16:31 97.9 F 02/17/20 16:29 105 H 127/81 H 100 02/17/20 16:18 98.6 F 02/17/20 16:17 104 H 98 02/17/20 16:16 104 H 129/85 H 99 02/17/20 15:09 98.1 F 02/17/20 15:08 110 H 121/78 H 99
[2020-02-17] MEDS: Sodium Citrate/Citric Acid 30 ML UDC PO ×2 (18:30→18:31)
--- NOTE | 2020-02-17 18:40 | PCM.OPRPT ---
Problem List (1) Abnormal glucose tolerance affecting , antepartum Status: Acute Comment: 3 hr. normal (2) Anemia affecting , antepartum Status: Acute Comment: daily Fe alternate from PNV, repeat cbc 4 weeks (3) Anxiety during Status: Acute Comment: zoloft, counseling encouraged (4) Echogenic intracardiac focus of fetus on ultrasound Status: Acute Comment: normal NIPT (5) Family historic risk of congenital abnormality Status: Acute Qualifiers: Comment: hemifacial microsomia paternal history. (6) Obesity affecting Status: Acute Qualifiers: Comment: nl 1 tm glucola. encouraged healthy weight gain (7) Positive GBS test Status: Acute Comment: tx PCN in labor (8) Pre-eclampsia during in third trimester, antepartum Status: Acute Comment: Patient with persistent mild range BPs in 140s-150s at home. BP 160/98 in office today. P:C elevated in triage yesterday. Discussed that with persistent elevated BPs at home and severe in office today, recommend induction for PreE without severe features. Discussed if persistently severe, would require mag for seizure ppx. (9) Status: Acute Qualifiers: Comment: NIPT low risk. declined carrier and ntd screening. anatomy reviewed. (10) Skin lesion of hand Status: Acute Comment: Raised lesion noted on thenar eminence of left hand with darkened external skin and pearly center. PCP previously evaluated and said to follow, but area has become larger. Referral placed to dermatology. (11) Supervision of high-risk Status: Acute Comment: PRR AFUA 02/28/20 girl Luis Jonah (12) Transient hypertension of in third trimester Status: Acute (13) Pyelectasis of fetus on ultrasound Status: Resolved Comment: FU US @ 32 wks per MFM, normal NIPT, right kidney 7/6mm and left 4.2mm, rpt US shows resolved per office - awaiting official addendum US 01/02 - resolved Delivery Classification: MODE Final AFUA: 02/28/20 Final AFUA Source: LMP Gestational age: 38 Weeks and 3 Days Type of Anesthesia:: Spinal Special Medications: 1g Tranexamic acid x2, hemabate, cytotec, methergine Date of Procedure: 02/17/20 Pre-Operative Diagnosis: IUP at 38 weeks, Preeclampsia without severe features, Failed induction Post-Operative Diagnosis: Same, Uterine atony Indications: 29yo at 38 weeks gestation admitted for induction of labor for preeclampsia without severe features. She had a protracted labor course and in spite of 27 hours on pitocin, did not ever become uncomfortable beyond feeling cramping and did not make cervical change beyond 3cm. Her membranes were ruptured on pitocin for 11 hours. After discussion with the patient, it was decided that it was unlikely that additional time would result in her body responding to induction and the decision was made to proceed with a section for a failed induction. Indications for : Failure to Progress Description of Procedure: The patient is a at 38 weeks gestation admitted for induction of labor who underwent a primary section for failed induction of labor. Spinal anesthesia was placed without difficulty. Cano catheter was placed. The patient was placed in the dorsal supine position with leftward tilt. Patient was prepped and draped in the normal sterile fashion. Pfannenstiel skin incision was made with the scalpel and carried through to the underlying layer of fascia with the scalpel. Fascia was nicked in the midline and the incision extended laterally. The rectus bellies were dissected off superiorly and inferiorly with out complication both sharply and bluntly. The peritoneum was entered digitally. The incision was stretched and a low transverse uterine incision was made with the scalpel. The infant's head was delivered atraumatically followed by the anterior and posterior shoulders without complication the rest of the delivered. The cord was clamped and cut and the infant was handed off to awaiting nurse. The placenta was delivered spontaneously immediately following and was noted to be intact and have a three-vessel cord. The uterus was exteriorized cleared of all clots and debris, and the incision was closed in a double layer closure using #1 Monocryl. Significant uterine atony was noted at this point in time. Hemabate and Cytotec were administered with only mild improvement in uterine tone. Her blood pressures were normal and therefore the decision was made to administer Methergine. Her uterine remained atonic. B-Terry sutures were performed x2 and uterine massage was performed. At this point uterine tone was noted to improve. Hemostasis was noted at the incision site and vaginal bleeding was assessed and found to be minimal. An additional dose of tranexamic acid was administered to help maintain hemostasis. [id number] of 3-0 Monocryl were used to achieve hemostasis at the sites of the B. Terry sutures. Hemostasis was noted to be adequate and uterine tone was noted to be good. The ovaries and fallopian tubes were noted to be within normal limits. The uterus was returned to the maternal abdomen and gutters were cleared of all clots and debris. The peritoneum was closed with 3-0 Monocryl in a running fashion. Fascia was closed with 0 PDS in a running fashion. Subcutaneous tissue was copiously irrigated and the skin was closed with 3-0 Monocryl in a subcuticular fashion. Mepilex dressing was applied without complication. Patient was taken to recovery in stable condition. Amniotic Membrane Rupture Type: Spontaneous Amniotic Fluid Description: Clear Placenta Disposition: [facility] Drain: Cano to straight drain Fluids Replaced: 2000 ml Cord Entanglement: None Cord Vessel Description: 3 Vessels Esitmated Blood Loss (ml): 1000 Gender: Female (1 minute): 8 (5 minute): 9 Delayed cord clamping: Yes Antibiotic Given: Ancef 2 grams IV x1, Zithromax 500 mg/5 mL X1 Pt instructed on risks of surgery: Bleeding, Anesthesia Risks, Infection, Injury to surrounding structure(s) including bowel and bladder Complications: - - Uterine atony - Admit VTE Documentation VTE Present on Admission: No VTE Mechan Device Prophylaxis: SCD's VTE Pharm Prophylaxis ordered?: Yes Multi Select Codes - Urinary/Genital Urinary/Genital CPT Codes: 60757 Delivery [facility]
[2020-02-17] MEDS: Acetaminophen 500 MG Tablet 1000 MG PO (18:42)
[2020-02-17] MEDS: Lactated Ringers 1,000 ML 999 ML IV (18:43)
[2020-02-17] MEDS: Cefazolin 2 GM in 0.9% Normal Saline 100 ML IV (19:20)
[2020-02-17] MEDS: Carboprost Tromethamine 250 MCG/ML Ampul IM (19:40)
[2020-02-17] MEDS: miSOPROStol 200 MCG Tablet 1000 MCG RECTAL (19:45)
[2020-02-17] MEDS: Ondansetron 4 MG/2 ML Vial IV (19:45)
[2020-02-17] MEDS: Methylergonovine 0.2 MG/ML Ampul IM (19:48)
[2020-02-17] MEDS: Oxytocin 30 units/NS 500 ml 30 UNITS/500 ML IV.SOLN 167 UNITS IV (20:40)
--- NOTE | 2020-02-17 21:13 | NURSING ---
TXA given at 1902 and 2010.
--- NOTE | 2020-02-17 21:22 | NURSING ---
Freemanergan given per Dr. Anthony at 194
--- NOTE | 2020-02-17 21:39 | NURSING ---
1000 mg of Cytotec given at 1944 rectally.
[2020-02-17] MEDS: Sertraline 50 MG Tablet PO (23:20)
[2020-02-17] MEDS: Lactated Ringers 1,000 ML 100 ML IV (23:48)
[2020-02-18] VITALS (19 sets, daily range): BP systolic 111–128; BP diastolic 57–91; PULSE 91–115; RESP 16–18; TEMP 36.4–37.2; O2SAT 94–99
[2020-02-18] MEDS: Ketorolac 30 MG/ML Syringe IV ×3 (00:50→12:56)
[2020-02-18] MEDS: Acetaminophen 500 MG Tablet 1000 MG PO ×4 (00:50→18:51)
[2020-02-18] MEDS: miSOPROStol 200 MCG Tablet 400 MCG PO ×4 (01:20→18:50)
--- NOTE | 2020-02-18 07:23 | PN.OBGYN_ITS ---
Subjective: Patient doing well without complaints. Tolerating PO. Pain minimal. Ambulating and voiding without difficulty. Bottle feeding well. Denies chest pain, shortness of breath, calf pain/swelling, fevers, chills, lightheadedness. Objective: Laboratory Tests 02/15/20 02/15/20 02/15/20 Range/Units 17:10 17:10 17:10 WBC 17.2 H (4.4-11.0) K/mm3 RBC 3.39 L (4.2-5.4) M/mm3 Hgb 10.1 L (12.0-15.0) g/dL Hct 29.3 L (37-47) % MCV 86.4 (81-99) fL MCH 29.8 (27.0-32.0) pg MCHC 34.5 (32-36) g/dL RDW Std Deviation 43.1 (35.1-43.9) fl RDW Coeff of Tali 13.9 (11.6-14.6) % Plt Count 350 (150-450) K/mm3 MPV 10.0 (6.2-12.0) fl PT 12.2 (11.7-14.9) SECONDS INR 1.0 APTT 25.5 (24.1-36.2) Seconds Creatinine 0.84 (0.55-1.02) mg/dL Estim Creat Clear Calc 96.96 ml/min Est GFR (MDRD) Af Amer 103 (>60) mL/min Est GFR (MDRD) Non-Af 85 (>60) mL/min Uric Acid 5.4 (2.6-6.0) mg/dL AST 24 (15-37) U/L ALT 18 (13-56) U/L Blood Type Antibody Screen 02/15/20 Range/Units 17:10 WBC (4.4-11.0) K/mm3 RBC (4.2-5.4) M/mm3 Hgb (12.0-15.0) g/dL Hct (37-47) % MCV (81-99) fL MCH (27.0-32.0) pg MCHC (32-36) g/dL RDW Std Deviation (35.1-43.9) fl RDW Coeff of Tali (11.6-14.6) % Plt Count (150-450) K/mm3 MPV (6.2-12.0) fl PT (11.7-14.9) SECONDS INR APTT (24.1-36.2) Seconds Creatinine (0.55-1.02) mg/dL Estim Creat Clear Calc ml/min Est GFR (MDRD) Af Amer (>60) mL/min Est GFR (MDRD) Non-Af (>60) mL/min Uric Acid (2.6-6.0) mg/dL AST (15-37) U/L ALT (13-56) U/L Blood Type A POSITIVE Antibody Screen NEGATIVE - Physical Exam Vitals/I&O's: Vital Signs Temp Pulse Resp BP Pulse Ox 98.1 F 100 16 128/57 H 96 02/18/20 05:27 02/18/20 06:49 02/18/20 06:49 02/18/20 05:27 02/18/20 06:49 Oxygen Delivery Method Room Air Weight: 244 lb 6 oz Body Mass Index (BMI) 38.2 Intake and Output for Last 24 Hours 02/16/20 02/17/20 02/18/20 23:59 23:59 23:59 Intake Total 2450.20 / 2450.20 4661.12 / 4661.12 200 / 200 Output Total 2900 / 2900 3900 / 3900 600 / 600 Balance -449.80 / -449.80 761.12 / 761.12 -400 / -400 General: Alert, Oriented x3, Cooperative, No apparent distress, Well developed, Well nourished HEENT: Atraumatic, PERRLA, EOMI, Normocephalic Oral: Moist Mucosa Neck: Supple, No JVD Lungs: Clear to auscultation, Normal air movement, No rhonchi, No wheeze, No rales Cardiovascular: Regular rate, Regular Rhythm Abdomen: Soft, Non Tender, Non-Distended, - - incision c/d/i, fundus firm Extremities: No edema, No Calf Tenderness Neurological: Cranial nerves II-XII grossly intact, Neuro grossly intact Psych/Mental Status: Normal Affect, Appropriate, Alert and oriented to time, place, person, mood and affect Current Medications Acetaminophen (Tylenol) 1,000 mg PO Q6H ANK[facility] Last Admin: 02/18/20 06:51 Dose: 1,000 mg Documented by: Bisacodyl (Dulcolax) 10 mg RECTAL UD PRN PRN Reason: If no BM Diphenhydramine HCl (Benadryl) 25 mg PO Q6H PRN PRN PRN Reason: ITCHING Stop: 02/18/20 20:20 Enoxaparin Sodium (Lovenox) 40 mg SC DAILY [facility] Hydrocortisone (Hytone) 1 applic TOPICAL TID PRN PRN; Protocol PRN Reason: Discomfort Lactated Ringer's () 1,000 mls @ 100 mls/hr IV .Q10H [facility] Last Admin: 02/17/20 23:48 Dose: 100 mls/hr Documented by: Naloxone HCl 4 mg/ Dextrose 504 mls @ 0 mls/hr IV .Q0M PRN; Protocol PRN Reason: Respiratory depression Ibuprofen (Motrin) 600 mg PO Q6H [facility] Influenza Virus Vaccine Quadrival (Flucelvax /Fluzone ) 0.5 ml IM .ONCE ONE Stop: 02/18/20 10:01 Ketorolac Tromethamine (Toradol (Bkc)) 30 mg IV Q6H [facility] Stop: 02/18/20 18:31 Last Admin: 02/18/20 06:50 Dose: 30 mg Documented by: Methylergonovine Maleate (Methergine) 0.2 mg IM X1 PRN PRN Reason: Uterine Atony Last Admin: 02/17/20 19:48 Dose: 0.2 mg Documented by: Misoprostol (Cytotec) 400 mcg PO Q6 [facility] Last Admin: 02/18/20 01:20 Dose: 400 mcg Documented by: Nalbuphine HCl (Nubain) 5 mg IV Q3H PRN PRN PRN Reason: ITCHING Stop: 02/18/20 20:20 Naloxone HCl (Narcan) 0.02 mg IV Q1M PRN PRN Reason: RR <10 and pt unresponsive Ondansetron HCl (Zofran) 4 mg IV Q4H PRN PRN PRN Reason: Nausea Oxycodone HCl (Oxyir) 5 - 10 mg PO Q4H PRN PRN PRN Reason: Pain Score 4-10/10 Prochlorperazine Edisylate (Compazine Iv) 10 mg IV Q6H PRN PRN PRN Reason: NAUSEA Senna/Docusate Sodium (Senokot-S, Anca-Colace) 0 tablet PO DAILY [facility] Sertraline HCl (Zoloft) 50 mg PO 1999 [facility] Last Admin: 02/17/20 23:20 Dose: 50 mg Documented by: Simethicone (Mylicon) 80 mg PO HS PRN PRN Reason: Indigestion/stomach pain Sodium Chloride () 5 - 15 ml IV UD PRN PRN Reason: SALINE FLUSH Medical Necessity - Tobacco Use Smoking Status: Never smoker Assessment/Plan All Active Problems (Last Reviewed 02/15/20 @ 15:22 by Kavitha Beebe) Pre-eclampsia during in third trimester, antepartum (Acute) Transient hypertension of in third trimester (Acute) Positive GBS test (Acute) Skin lesion of hand (Acute) Echogenic intracardiac focus of fetus on ultrasound (Acute) Pyelectasis of fetus on ultrasound (Resolved) Supervision of high-risk (Acute) Abnormal glucose tolerance affecting , antepartum (Acute) Anemia affecting , antepartum (Acute) Family historic risk of congenital abnormality (Acute) Obesity affecting (Acute) Anxiety during (Acute) (Acute) Cellulitis of left hand (Resolved) Complete placenta previa with hemorrhage, second trimester (Resolved) Open wound of left hand (Resolved) s/p LTCS PPD # 1 1. routine post care 2. uterine atony - 24h cytotec ordered 3. breast feeding- support given 4. rh positive 5. rubella immune
[2020-02-18] MEDS: 0.9% Saline Lock 10 ML Syringe IV ×3 (08:21→18:52)
[2020-02-18] MEDS: Senna/Docusate Sodium 1 Tablet PO (10:01)
[2020-02-18] MEDS: Enoxaparin 40 MG/0.4 ML Syringe SC (10:02)
[2020-02-18 12:12] LABS: Hematocrit 22.9 % (37-47); Mean Corp Hgb Conc 34.9 g/dL (32-36); Mean Corpuscular Hgb 30.5 pg (27.0-32.0); Mean Corpuscular Volume 87.4 fL (81-99); Mean Platelet Vol. 10.1 fl (6.2-12.0); Platelet Count 319 K/mm3 (150-450); RBC Distribution Width SD 44.1 fl (35.1-43.9); Red Blood Count 2.62 M/mm3 (4.2-5.4); White Blood Count 15.6 K/mm3 (4.4-11.0)
[2020-02-18] MEDS: Ibuprofen 600 MG Tablet PO (19:04)
[2020-02-18] MEDS: Sertraline 50 MG Tablet PO (20:57)
[2020-02-19] MEDS: Acetaminophen 500 MG Tablet 1000 MG PO ×3 (01:11→12:58)
[2020-02-19] MEDS: Ibuprofen 600 MG Tablet PO ×3 (01:11→12:33)
[2020-02-19 01:13] VITALS: BP 131/80; PULSE 96; RESP 14; TEMP 36.5
--- NOTE | 2020-02-19 07:58 | PCM.PN.OB ---
Subjective: Patient doing well without complaints. Tolerating PO. Ambulating and voiding without difficulty. Bottle feeding well. Denies chest pain, shortness of breath, calf pain/swelling, fevers, chills, lightheadedness. Was dx UTI on 02/15 but did not have time to get antibiotic. She is now having dysuria. - Physical Exam Vitals/I&O's: Vital Signs Temp Pulse Resp BP Pulse Ox 97.7 F L 96 14 131/80 H 98 02/19/20 01:13 02/19/20 01:13 02/19/20 01:13 02/19/20 01:13 02/18/20 18:49 Oxygen Delivery Method Room Air Weight: 244 lb 6 oz Body Mass Index (BMI) 38.2 Intake and Output for Last 24 Hours 02/17/20 02/18/20 02/19/20 23:59 23:59 23:59 Intake Total 4661.12 / 4661.12 1956.67 / 1956.67 Output Total 3900 / 3900 2100 / 2100 Balance 761.12 / 761.12 -143.33 / -143.33 General: Alert, Oriented x3 Abdomen: Soft, Non-Distended, - - FF below U. Dressing dry and intact. Tender appropriately Laboratory Results 02/18/20 11:42: WBC 15.6 H, RBC 2.62 L, Hgb 8.0 L, Hct 22.9 L, MCV 87.4, MCH 30.5, MCHC 34.9, RDW Std Deviation 44.1 H, RDW Coeff of Tali 14.0, Plt Count 319, MPV 10.1 Current Medications Acetaminophen (Tylenol) 1,000 mg PO Q6H [facility] Last Admin: 02/19/20 06:52 Dose: 1,000 mg Documented by: Bisacodyl (Dulcolax) 10 mg RECTAL UD PRN PRN Reason: If no BM Enoxaparin Sodium (Lovenox) 40 mg SC DAILY [facility] Last Admin: 02/18/20 10:02 Dose: 40 mg Documented by: Hydrocortisone (Hytone) 1 applic TOPICAL TID PRN PRN; Protocol PRN Reason: Discomfort Naloxone HCl 4 mg/ Dextrose 504 mls @ 0 mls/hr IV .Q0M PRN; Protocol PRN Reason: Respiratory depression Ibuprofen (Motrin) 600 mg PO Q6H [facility] Last Admin: 02/19/20 06:41 Dose: 600 mg Documented by: Measles/Mumps/Rubella Vaccine Live (M-M-R Ii) 0.5 ml SC .ONCE ONE Stop: 02/19/20 10:01 Last Admin: 02/18/20 17:38 Dose: 0.5 ml Documented by: Methylergonovine Maleate (Methergine) 0.2 mg IM X1 PRN PRN Reason: Uterine Atony Last Admin: 02/17/20 19:48 Dose: 0.2 mg Documented by: Naloxone HCl (Narcan) 0.02 mg IV Q1M PRN PRN Reason: RR <10 and pt unresponsive Nitrofurantoin Macrocrystals (Macrobid) 100 mg PO X1 ONE Stop: 02/19/20 07:55 Ondansetron HCl (Zofran) 4 mg IV Q4H PRN PRN PRN Reason: Nausea Oxycodone HCl (Oxyir) 5 - 10 mg PO Q4H PRN PRN PRN Reason: Pain Score 4-10/10 Prochlorperazine Edisylate (Compazine Iv) 10 mg IV Q6H PRN PRN PRN Reason: NAUSEA Senna/Docusate Sodium (Senokot-S, Anca-Colace) 0 tablet PO DAILY [facility] Last Admin: 02/18/20 10:01 Dose: 2 tablet Documented by: Sertraline HCl (Zoloft) 50 mg PO 1999 [facility] Last Admin: 02/18/20 20:57 Dose: 50 mg Documented by: Simethicone (Mylicon) 80 mg PO HS PRN PRN Reason: Indigestion/stomach pain Sodium Chloride () 5 - 15 ml IV UD PRN PRN Reason: SALINE FLUSH Last Admin: 02/18/20 18:52 Dose: 10 ml Documented by: Medical Necessity - Tobacco Use Smoking Status: Never smoker Assessment/Plan All Active Problems (Last Reviewed 02/15/20 @ 15:22 by Kavitha Beebe) Pre-eclampsia during in third trimester, antepartum (Acute) Transient hypertension of in third trimester (Acute) Positive GBS test (Acute) Skin lesion of hand (Acute) Echogenic intracardiac focus of fetus on ultrasound (Acute) Pyelectasis of fetus on ultrasound (Resolved) Supervision of high-risk (Acute) Abnormal glucose tolerance affecting , antepartum (Acute) Anemia affecting , antepartum (Acute) Family historic risk of congenital abnormality (Acute) Obesity affecting (Acute) Anxiety during (Acute) (Acute) Cellulitis of left hand (Resolved) Complete placenta previa with hemorrhage, second trimester (Resolved) Open wound of left hand (Resolved) s/p LTCS PPD # 2 1. routine post care 2. bottle feeding- support given 3. rh positive 4. rubella nonimmune 5. 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 Repeat CBC-enc Fe daily after discharge. 7. BP WNL 8. Discharge today
--- NOTE | 2020-02-19 08:04 | DCINST_ITS ---
Additional Instructions: If you experience any of the following, contact your healthcare provider. * Bleeding that soaks a pad every hour for 2 hours * Fever 100.4 or higher * Unrelieved incision or abdominal pain * Swelling, redness, discharge or bleeding from your incision or episiotomy site * Your incision begins to separate * Problems urinating (including inability to urinate or burning while urinating). * Visual changes * Severe headache * Flu-like symptoms * Pain or redness in one of both of your breasts * Pain, warmth, tenderness or swelling in your legs, especially the calf area * Frequent nausea and vomiting * Symptoms of depression or anxiety If you experience any of the following, call 911 or go to the nearest Emergency Room. * Chest pain * Problems breathing * Seizure activity * Partial or complete paralysis of a body part, slurred speech, weakness or drooping of the face, or a sudden inability to walk or hold your balance Allergies/Adverse Reactions: Allergies No Known Allergies Allergy (Verified 02/14/20 12:46) Medications to take at Discharge multivitamin no.47-iron fum 27 mg-folate no.1 1 mg-dha 300 mg capsule 1 cap PO DAILY 08/02/19 Pnv No.95/Ferrous Fum/Folic AC [ Vitamin Tablet] 1 tab PO DAILY 02/14/20 Sertraline HCl [Zoloft] 50 mg PO DAILY 02/14/20 Naproxen [Naprosyn] 500 mg PO BID PRN PRN #60 tab 02/19/20 Oxycodone HCl/Acetaminophen [Percocet 5/325] 1 - 2 tablet PO Q4H PRN PRN 3 Days #15 tablet 02/19/20 The following prescriptions were given: Naproxen [Naprosyn] 500 mg PO BID PRN PRN #60 tab PRN Reason: Pain Transmission Status: Pending to [facility] Oxycodone HCl/Acetaminophen [Percocet 5/325] 1 - 2 tablet PO Q4H PRN PRN 3 Days #15 tablet PRN Reason: Pain Transmission Status: Sent to [facility] Follow-Up: Call to make an appointment with your doctor for an incision check in 1-2 weeks. You will also need a 6 week post- follow up appointment. Test results from this visit will be discussed in further detail at your follow- up appointment, if applicable. Primary Care Physician: Kavitha Coto MD [Primary Care Provider] -
--- NOTE | 2020-02-19 08:04 | PCM.DCCSEC ---
Additional Instructions: If you experience any of the following, contact your healthcare provider. Bleeding that soaks a pad every hour for 2 hours Fever 100.4 or higher Unrelieved incision or abdominal pain Swelling, redness, discharge or bleeding from your incision or episiotomy site Your incision begins to separate Problems urinating (including inability to urinate or burning while urinating). Visual changes Severe headache Flu-like symptoms Pain or redness in one of both of your breasts Pain, warmth, tenderness or swelling in your legs, especially the calf area Frequent nausea and vomiting Symptoms of depression or anxiety If you experience any of the following, call 911 or go to the nearest Emergency Room. Chest pain Problems breathing Seizure activity Partial or complete paralysis of a body part, slurred speech, weakness or drooping of the face, or a sudden inability to walk or hold your balance Allergies/Adverse Reactions: Allergies No Known Allergies Allergy (Verified 02/14/20 12:46) Medications to take at Discharge multivitamin no.47-iron fum 27 mg-folate no.1 1 mg-dha 300 mg capsule 1 cap PO DAILY 08/02/19 Pnv No.95/Ferrous Fum/Folic AC [ Vitamin Tablet] 1 tab PO DAILY 02/14/20 Sertraline HCl [Zoloft] 50 mg PO DAILY 02/14/20 Naproxen [Naprosyn] 500 mg PO BID PRN PRN #60 tab 02/19/20 Oxycodone HCl/Acetaminophen [Percocet 5/325] 1 - 2 tablet PO Q4H PRN PRN 3 Days #15 tablet 02/19/20 The following prescriptions were given: Naproxen [Naprosyn] 500 mg PO BID PRN PRN #60 tab PRN Reason: Pain Transmission Status: Pending to [facility] Oxycodone HCl/Acetaminophen [Percocet 5/325] 1 - 2 tablet PO Q4H PRN PRN 3 Days #15 tablet PRN Reason: Pain Transmission Status: Sent to [facility] Follow-Up: Call to make an appointment with your doctor for an incision check in 1-2 weeks. You will also need a 6 week post- follow up appointment. Test results from this visit will be discussed in further detail at your follow-up appointment, if applicable. Primary Care Physician: Kavitha Coto MD [Primary Care Provider] -
[2020-02-19] MEDS: Nitrofurantoin Macrocrystals 100 MG Capsule PO (09:03)
[2020-02-19 09:28] LABS: Hematocrit 22.3 % (37-47); Hemoglobin 7.7 g/dL (12.0-15.0); Mean Corp Hgb Conc 34.5 g/dL (32-36); Mean Corpuscular Hgb 29.7 pg (27.0-32.0); Mean Corpuscular Volume 86.1 fL (81-99); Mean Platelet Vol. 9.5 fl (6.2-12.0); Platelet Count 328 K/mm3 (150-450); RBC Distribution Width CV 14.1 % (11.6-14.6); RBC Distribution Width SD 43.4 fl (35.1-43.9); Red Blood Count 2.59 M/mm3 (4.2-5.4); White Blood Count 12.8 K/mm3 (4.4-11.0)
[2020-02-19 09:29] VITALS: BP 133/88; PULSE 105; RESP 16; TEMP 36.9; O2SAT 98
[2020-02-19] MEDS: Enoxaparin 40 MG/0.4 ML Syringe SC (11:11)
[2020-02-19 12:36] VITALS: BP 134/84; PULSE 95; RESP 16; TEMP 36.3
== END 2020-02-19 13:05 | disposition home or self-care (01) | DRG 787 ==
PROVIDERS: Nurse Practitioner Women's Health; Admitting Provider Obstetrics & Gynecology; PCP Family Medicine; Referring Provider Obstetrics & Gynecology; Visit Provider Obstetrics & Gynecology
DX: O75.3 Other infection during labor (principal); O98.82 Other maternal infectious and parasitic diseases complicating childbirth; N39.0 Urinary tract infection, site not specified; O61.0 Failed medical induction of labor; O62.1 Secondary uterine inertia; O14.94 Unspecified pre-eclampsia, complicating childbirth; O99.02 Anemia complicating childbirth; D64.9 Anemia, unspecified; O99.214 Obesity complicating childbirth; E66.9 Obesity, unspecified; B95.1 Streptococcus, group B, as the cause of diseases classified elsewhere; Z3A.38 38 weeks gestation of pregnancy; Z37.0 Single live birth; O75.89 Other specified complications of labor and delivery
CPT/HCPCS: 59025; 59050; 82565; 84450; 84460; 84550; 85027; 85610; 85730; 86850; 86900; 86901; 99218; J7120; A4216; G0378; J2405

== ENCOUNTER → 2020-02-15 | Outpatient (CLI) | payer OTHER, SELFPAY ==
[2020-02-15 15:25] VITALS: BMI 38.2
[2020-02-15 18:30] LABS: Protein, Urine (Random) 18.1 mg/dL (<11.9); Protein:Creat Ratio 336 mg/g CRE (0-200)
== END | disposition home or self-care (01) ==
PROVIDERS: PCP Family Medicine; Referring Provider Obstetrics & Gynecology; Visit Provider Obstetrics & Gynecology
DX: O13.3 Gestational [pregnancy-induced] hypertension without significant proteinuria, third trimester (principal); Z3A.00 Weeks of gestation of pregnancy not specified
CPT/HCPCS: 82570; 84156

== ENCOUNTER → 2020-07-19 07:54 | Outpatient (CLI) | payer OTHER, SELFPAY ==
[2020-03-24 13:56] VITALS: BMI 35.6
[2020-07-19 09:15] LABS: Anion Gap 8 (5-15); BUN 13 mg/dL (7-18); BUN/Creat Ratio 16.6 RATIO (10-20); Chloride 107 mmol/L (98-107); Cholesterol 266 mg/dL (200); Creatinine, Serum 0.78 mg/dL (0.55-1.02); EST Glomerular Filtration Rate 92 mL/min (>60); Est Glom Filt Rate - Afr Amer 112 mL/min (>60); Glucose 90 mg/dL (74-106); High Density Lipoprotein 40 mg/dL; Potassium 4.6 mmol/L (3.5-5.1); Sodium Level 140 mmol/L (136-145); Triglycerides 629 mg/dL
== END ==
PROVIDERS: PCP Family Medicine; Referring Provider Family Medicine; Visit Provider Family Medicine
DX: Z00.00 Encounter for general adult medical examination without abnormal findings (principal)
CPT/HCPCS: 36415; 80048; 80061

== ENCOUNTER → 2020-08-26 16:52 | Outpatient (CLI) | payer OTHER, SELFPAY ==
[2020-03-24 13:56] VITALS: BMI 35.6
== END ==
PROVIDERS: PCP Family Medicine; Visit Provider Family Medicine
DX: N39.0 Urinary tract infection, site not specified (principal)
CPT/HCPCS: 87086; 87088

== ENCOUNTER → 2021-03-27 14:29 | Outpatient (CLI) | payer OTHER, SELFPAY ==
[2021-03-27 15:47] LABS: Absolute Lymphocyte Count 4.47 X10^3/uL (0.83-4.51); Absolute Neutrophil Count 5.6 X10^3/uL (2.0-7.7); Basophil# 0.05 X10^3/uL; Basophil% 0.4 % (0-1); Eosinophil# 0.27 X10^3/uL; Eosinophils% 2.4 % (0-5); Hematocrit 38.8 % (37-47); Hemoglobin 12.9 g/dL (12.0-15.0); Lymphocyte # 4.47 X10^3/ul (0.83-4.51); Lymphocyte % 39.7 % (19-41); Mean Corp Hgb Conc 33.2 g/dL (32-36); Mean Corpuscular Hgb 28.5 pg (27.0-32.0); Mean Corpuscular Volume 85.7 fL (81-99); Mean Platelet Vol. 9.7 fl (6.2-12.0); Monocyte# 0.76 X10^3/uL; Monocyte% 6.7 % (0-10); NRBC Flagged by Analyzer 0 % (0-5); Neutrophil # 5.63 X10^3/uL (2.7-7.7); Neutrophil % 50.1 % (47-70); Platelet Count 507 K/mm3 (150-450); RBC Distribution Width CV 12.9 % (11.6-14.6); Red Blood Count 4.53 M/mm3 (4.2-5.4); White Blood Count 11.3 K/mm3 (4.4-11.0)
[2021-03-27 16:25] LABS: Vitamin D,25 Hydroxy 13.8 ng/mL
[2021-03-27 16:34] LABS: Thyroid Stim Hormone (TSH) 1.18 uIU/mL (0.358-3.74)
== END ==
PROVIDERS: PCP Family Medicine; Visit Provider Obstetrics & Gynecology
DX: Z01.419 Encounter for gynecological examination (general) (routine) without abnormal findings (principal)
CPT/HCPCS: 36415; 82306; 84443; 85025

== ENCOUNTER → 2021-04-17 | Outpatient (CLI) | payer OTHER, SELFPAY ==
[2021-04-22 11:32] LABS: HPV Reflexed? NOT INDICATED
== END | disposition home or self-care (01) ==
LOC: LABSPEC 16:56
PROVIDERS: Referring Provider Obstetrics & Gynecology; Visit Provider Obstetrics & Gynecology
DX: Z12.4 Encounter for screening for malignant neoplasm of cervix (principal)
CPT/HCPCS: 88175; G0145

== ENCOUNTER 2021-06-09 09:25 | Outpatient (CLI) | payer OTHER, SELFPAY ==
[2021-06-09 12:30] LABS: ALB/GLOB Ratio 0.8 RATIO (0.9-2.4); AST(SGOT) 18 U/L (15-37); Alanine Aminotransfer ALT/SGPT 26 U/L (13-56); Albumin, Serum 3.4 g/dL (3.2-5.0); Alkaline Phosphatase 85 U/L (45-117); Anion Gap 9 (5-15); BUN 10 mg/dL (7-18); BUN/Creat Ratio 12.2 RATIO (10-20); Calcium,Total 8.9 mg/dL (8.5-10.1); Chloride 103 mmol/L (98-107); Cholesterol 240 mg/dL (200); Creatinine, Serum 0.82 mg/dL (0.55-1.02); EST Glomerular Filtration Rate 88 mL/min (>60); Est Glom Filt Rate - Afr Amer 106 mL/min (>60); Globulin 4.4 g/dL (2.2-4.2); Glucose 87 mg/dL (74-106); High Density Lipoprotein 46 mg/dL; Potassium 4.5 mmol/L (3.5-5.1); Protein, Total 7.8 g/dL (6.4-8.2); Sodium Level 136 mmol/L (136-145); Triglycerides 373 mg/dL; Very Low Density Lipoprotein 75 mg/dL (5-40)
[2021-06-09 12:31] LABS: Hemoglobin A1c 5.3 % (3.8-5.6)
== END 2021-06-09 23:59 | disposition short-term general hospital (02) ==
LOC: BIMLAB 09:25
PROVIDERS: PCP Internal Medicine; Referring Provider Internal Medicine; Visit Provider Internal Medicine
DX: E78.5 Hyperlipidemia, unspecified (principal); E66.9 Obesity, unspecified; Z68.30 Body mass index [BMI] 30.0-30.9, adult
CPT/HCPCS: 36415; 80053; 80061; 83036

== ENCOUNTER → 2021-09-12 | Outpatient (CLI) | payer OTHER, SELFPAY ==
[2021-09-12 10:52] LABS: ALB/GLOB Ratio 0.8 RATIO (0.9-2.4); AST(SGOT) 14 U/L (15-37); Alanine Aminotransfer ALT/SGPT 23 U/L (13-56); Albumin, Serum 3.4 g/dL (3.2-5.0); Alkaline Phosphatase 78 U/L (45-117); Anion Gap 6 (5-15); BUN 13 mg/dL (7-18); BUN/Creat Ratio 15.9 RATIO (10-20); Calcium,Total 8.9 mg/dL (8.5-10.1); Chloride 108 mmol/L (98-107); Cholesterol 263 mg/dL (200); Creatinine, Serum 0.82 mg/dL (0.55-1.02); EST Glomerular Filtration Rate 87 mL/min (>60); Est Glom Filt Rate - Afr Amer 106 mL/min (>60); Glucose 94 mg/dL (74-106); High Density Lipoprotein 47 mg/dL; Potassium 4.8 mmol/L (3.5-5.1); Protein, Total 7.4 g/dL (6.4-8.2); Sodium Level 139 mmol/L (136-145); Triglycerides 284 mg/dL; Very Low Density Lipoprotein 57 mg/dL (5-40)
== END | disposition home or self-care (01) ==
PROVIDERS: PCP Internal Medicine; Referring Provider Internal Medicine; Visit Provider Internal Medicine
DX: Z00.00 Encounter for general adult medical examination without abnormal findings (principal)
CPT/HCPCS: 36415; 80053; 80061

== ENCOUNTER → 2022-02-25 | Outpatient (CLI) | payer OTHER, SELFPAY ==
--- NOTE | 2022-02-25 07:46 | ECHOD_ITS ---
Reason For Study: Murmur Procedure This was a 2D Doppler, Color Flow transthoracic echocardiogram. Exam performed in department. Left Ventricle Left ventricular systolic function is lower limits of normal. The left ventricular ejection fraction is 50 %. Right Ventricle Normal right ventricle. Atria The left and right atria are normal. Mitral Valve Trivial mitral valve insufficiency. Tricuspid Valve Trivial tricuspid valve insufficiency. Normal pulmonary artery pressure. Aortic Valve Normal aortic valve. Pulmonic Valve The pulmonic valve is not well visualized. Great Vessels Normal sized aortic root. Pericardium/Pleural No pericardial effusion. MMode/2D Measurements & Calculations LVIDd: 4.3 cm IVSd: 0.79 cm Ao root diam: 3.0 cm LVIDs: 3.3 cm LVPWd: 0.89 cm LA dimension: 3.0 cm RVDd: 2.9 cm FS: 23.8 % LAV(MOD-bp): 32.1 ml LA A4 area: 14.1 cm2 RA A4 area: 9.7 cm2 LAV(MOD-bp) Indexed: 14.8 ml/m2 LAV(MOD-sp2): 30.2 ml LAV(MOD-sp4): 27.5 ml Time Measurements MV dec time: 0.20 sec Doppler Measurements & Calculations MV E max pedro: 72.5 cm/sec Lat Peak E' Pedro: 15.1 cm/sec Med Peak E' Pedro: 9.2 cm/sec MV A max pedro: 69.7 cm/sec E/E' lat: 4.8 E/E' med: 7.9 MV E/A: 1.0 MV V2 max: 91.8 cm/sec MV P1/2t max pedro: 90.8 cm/sec Ao V2 max: 130.7 cm/sec MV max P.4 mmHg MV P1/2t: 79.9 msec Ao max P.8 mmHg MV V2 mean: 52.7 cm/sec MV dec slope: 333.0 cm/sec2 MV mean P.3 mmHg MVA(P1/2t): 2.8 cm2 MV V2 VTI: 24.9 cm LV V1 max: 117.0 cm/sec PA V2 max: 81.7 cm/sec TR max pedro: 212.2 cm/sec LV V1 max P.5 mmHg TR max P.1 mmHg ECHO/Echo Complete Interpretation Summary Left ventricular systolic function is lower limits of normal. The left ventricular ejection fraction is 50 %. Ordering Physician: Mariana Guerrero Referring Physician: Mariana Guerrero Performed By: Hayden David RCS
== END | disposition home or self-care (01) ==
LOC: CVS 07:45
PROVIDERS: PCP Family Medicine; Referring Provider Family Medicine; Visit Provider Family Medicine
DX: R01.1 Cardiac murmur, unspecified (principal)
CPT/HCPCS: 93306

== ENCOUNTER → 2022-04-29 | Outpatient (CLI) | payer OTHER, SELFPAY ==
[2022-05-08 21:00] LABS: HPV APTIMA, High Risk Negative (Negative)
== END | disposition home or self-care (01) ==
PROVIDERS: PCP Family Medicine; Visit Provider Obstetrics & Gynecology
DX: Z12.4 Encounter for screening for malignant neoplasm of cervix (principal)
CPT/HCPCS: 87624; 88175; G0145

== ENCOUNTER 2022-08-03 08:00 | Outpatient (CLI) | payer OTHER, SELFPAY ==
[2022-08-03 09:48] LABS: Absolute Lymphocyte Count 3.33 X10^3/uL (0.83-4.51); Absolute Neutrophil Count 6.5 X10^3/uL (2.0-7.7); Basophil# 0.03 X10^3/uL; Basophil% 0.3 % (0-1); Eosinophil# 0.21 X10^3/uL; Eosinophils% 1.9 % (0-5); Hematocrit 38.5 % (37-47); Lymphocyte # 3.33 X10^3/ul (0.83-4.51); Lymphocyte % 30.3 % (19-41); Mean Corp Hgb Conc 33.8 g/dL (32-36); Mean Corpuscular Hgb 28.9 pg (27.0-32.0); Mean Corpuscular Volume 85.6 fL (81-99); Mean Platelet Vol. 9.7 fl (6.2-12.0); Monocyte# 0.84 X10^3/uL; Monocyte% 7.6 % (0-10); NRBC Flagged by Analyzer 0 % (0-5); Neutrophil # 6.54 X10^3/uL (2.7-7.7); Neutrophil % 59.4 % (47-70); Platelet Count 410 K/mm3 (150-450); RBC Distribution Width CV 13.2 % (11.6-14.6); RBC Distribution Width SD 40.7 fl (35.1-43.9)
[2022-08-03 10:04] LABS: Vitamin D,25 Hydroxy 17.4 ng/mL
[2022-08-03 10:23] LABS: ALB/GLOB Ratio 0.9 RATIO (0.9-2.4); AST(SGOT) 12 U/L (15-37); Alanine Aminotransfer ALT/SGPT 27 U/L (13-56); Albumin, Serum 3.7 g/dL (3.2-5.0); Alkaline Phosphatase 84 U/L (45-117); Anion Gap 8 (5-15); BUN 13 mg/dL (7-18); BUN/Creat Ratio 15.2 RATIO (10-20); Chloride 106 mmol/L (98-107); Cholesterol 225 mg/dL (200); Creatinine, Serum 0.86 mg/dL (0.55-1.02); EST Glomerular Filtration Rate 82 mL/min (>60); Est Glom Filt Rate - Afr Amer 100 mL/min (>60); Glucose 99 mg/dL (74-106); High Density Lipoprotein 37 mg/dL; Protein, Total 7.7 g/dL (6.4-8.2); Sodium Level 138 mmol/L (136-145); Thyroid Stim Hormone (TSH) 1.38 uIU/mL (0.358-3.74); Triglycerides 250 mg/dL; Very Low Density Lipoprotein 50 mg/dL (5-40)
[2022-08-03 10:27] LABS: Hemoglobin A1c 5.3 % (3.8-5.6)
== END 2022-08-03 23:59 | disposition home or self-care (01) ==
PROVIDERS: PCP Family Medicine; Referring Provider Family Medicine; Visit Provider Family Medicine
DX: Z00.00 Encounter for general adult medical examination without abnormal findings (principal)
CPT/HCPCS: 36415; 80053; 80061; 82306; 83036; 84443; 85025

== ENCOUNTER → 2022-09-30 | Outpatient (CLI) | payer OTHER, SELFPAY ==
[2022-09-30 10:49] LABS: hCG Titer Quant., Serum 66 mIU/mL (1-3)
== END | disposition home or self-care (01) ==
LOC: LAB 09:08
PROVIDERS: PCP Family Medicine; Referring Provider Obstetrics & Gynecology; Visit Provider Obstetrics & Gynecology
DX: N91.2 Amenorrhea, unspecified (principal)
CPT/HCPCS: 36415; 84702

== ENCOUNTER → 2022-10-19 | Outpatient (CLI) | payer OTHER, SELFPAY ==
[2022-10-19 10:50] LABS: hCG Titer Quant., Serum 3225 mIU/mL (1-3)
== END | disposition home or self-care (01) ==
LOC: LAB 09:44
PROVIDERS: PCP Family Medicine; Referring Provider Obstetrics & Gynecology; Visit Provider Obstetrics & Gynecology
DX: N91.2 Amenorrhea, unspecified (principal)
CPT/HCPCS: 36415; 84702

== ENCOUNTER → 2022-10-20 | Outpatient (CLI) | payer OTHER, SELFPAY ==
--- NOTE | 2022-10-20 10:18 | US_ITS ---
INDICATION: dating EXAMINATION: Ultrasound US OB Transvaginal TECHNIQUE: Transabdominal pelvic ultrasound was performed. Grayscale, spectral waveform, and color flow Doppler evaluation of the adnexa. COMPARISON: None. LMP: [August 02, 2022 Beta-hCG: Unknown FINDINGS: UTERUS: 8.5 x 5.4 x 4.2 cm. RIGHT OVARY: 3.3 x 2.0 x 1.6 cm. Normal. LEFT OVARY: 3.5 x 2.2 x 2.7 cm. There is a complex 1.6 x 1.3 x 1.6 cm cyst arising from the left ovary. FREE FLUID: None. INTRAUTERINE GESTATIONAL SAC(s) (size/shape): Single. The mean sac diameter measures 1.17 cm corresponding to gestational age of 6 weeks and 0 days. YOLK SAC: No yolk sac is identified. POLE: No pole is identified. SUBCHORIONIC HEMORRHAGE: There is a 0.9 x 0.5 x 1.2 cm subchorionic fluid collection. US/Transvaginal w/Preg US IMPRESSION: Early intrauterine with no yolk sac nor pole identified. 0.9 x 0.5 x 1.2 cm subchorionic hemorrhage. 1.6 x 1.3 x 1.6 cm complex cyst arising from the left ovary may reflect a hemorrhagic cyst or endometrioma. Electronically Signed: Traci Castellanos MD at 11:57 EDT ,
== END | disposition home or self-care (01) ==
LOC: US 10:17
PROVIDERS: PCP Family Medicine; Referring Provider Nurse Practitioner Women's Health; Visit Provider Nurse Practitioner Women's Health
DX: N91.2 Amenorrhea, unspecified (principal)
CPT/HCPCS: 76817

== ENCOUNTER → 2022-10-21 | Outpatient (CLI) | payer OTHER, SELFPAY ==
[2022-10-21 12:48] LABS: hCG Titer Quant., Serum 3523 mIU/mL (1-3)
== END | disposition home or self-care (01) ==
LOC: LAB 11:36
PROVIDERS: PCP Family Medicine; Referring Provider Obstetrics & Gynecology; Visit Provider Obstetrics & Gynecology
DX: N92.0 Excessive and frequent menstruation with regular cycle (principal)
CPT/HCPCS: 36415; 84702

== ENCOUNTER → 2022-10-23 | Outpatient (CLI) | payer OTHER, SELFPAY ==
[2022-10-23 12:17] LABS: Absolute Lymphocyte Count 4.24 X10^3/uL (0.83-4.51); Absolute Neutrophil Count 6.3 X10^3/uL (2.0-7.7); Basophil# 0.05 X10^3/uL; Basophil% 0.4 % (0-1); Eosinophils% 1.7 % (0-5); Hematocrit 37.5 % (37-47); Hemoglobin 12.8 g/dL (12.0-15.0); Lymphocyte # 4.24 X10^3/ul (0.83-4.51); Lymphocyte % 35.3 % (19-41); Mean Corp Hgb Conc 34.1 g/dL (32-36); Mean Corpuscular Hgb 28.8 pg (27.0-32.0); Mean Corpuscular Volume 84.5 fL (81-99); Mean Platelet Vol. 9.5 fl (6.2-12.0); Monocyte# 1.03 X10^3/uL; Monocyte% 8.6 % (0-10); NRBC Flagged by Analyzer 0 % (0-5); Neutrophil # 6.31 X10^3/uL (2.7-7.7); Neutrophil % 52.5 % (47-70); Platelet Count 426 K/mm3 (150-450); RBC Distribution Width CV 13.2 % (11.6-14.6); RBC Distribution Width SD 40.6 fl (35.1-43.9); Red Blood Count 4.44 M/mm3 (4.2-5.4)
[2022-10-23 12:51] LABS: ALB/GLOB Ratio 0.9 RATIO (0.9-2.4); AST(SGOT) 10 U/L (15-37); Alanine Aminotransfer ALT/SGPT 20 U/L (13-56); Albumin, Serum 3.5 g/dL (3.2-5.0); Alkaline Phosphatase 82 U/L (45-117); Anion Gap 9 (5-15); BUN 9 mg/dL (7-18); BUN/Creat Ratio 13.5 RATIO (10-20); Calcium,Total 8.9 mg/dL (8.5-10.1); Chloride 106 mmol/L (98-107); Cholesterol 216 mg/dL (200); Creatinine, Serum 0.67 mg/dL (0.55-1.02); EST Glomerular Filtration Rate 109 mL/min (>60); Est Glom Filt Rate - Afr Amer 132 mL/min (>60); Globulin 3.9 g/dL (2.2-4.2); Glucose 63 mg/dL (74-106); High Density Lipoprotein 35 mg/dL; Potassium 3.5 mmol/L (3.5-5.1); Protein, Total 7.4 g/dL (6.4-8.2); Sodium Level 138 mmol/L (136-145); Thyroid Stim Hormone (TSH) 1.43 uIU/mL (0.358-3.74); Triglycerides 299 mg/dL; Very Low Density Lipoprotein 60 mg/dL (5-40)
[2022-10-23 12:53] LABS: Hemoglobin A1c 5.1 % (3.8-5.6)
[2022-10-23 12:58] LABS: hCG Titer Quant., Serum 3818 mIU/mL (1-3)
[2022-10-25 08:26] LABS: Vitamin D,25 Hydroxy 36.5 ng/mL
== END | disposition home or self-care (01) ==
LOC: LAB 11:20
PROVIDERS: PCP Family Medicine; Referring Provider Obstetrics & Gynecology; Visit Provider Obstetrics & Gynecology
DX: Z00.00 Encounter for general adult medical examination without abnormal findings (principal); E55.9 Vitamin D deficiency, unspecified; N91.2 Amenorrhea, unspecified; O36.80X0 Pregnancy with inconclusive fetal viability, not applicable or unspecified; O99.891 Other specified diseases and conditions complicating pregnancy; O99.280 Endocrine, nutritional and metabolic diseases complicating pregnancy, unspecified trimester
CPT/HCPCS: 36415; 80053; 80061; 82306; 83036; 84443; 84702; 85025

== ENCOUNTER → 2022-10-27 | Outpatient (CLI) | payer OTHER, SELFPAY ==
--- NOTE | 2022-10-27 12:29 | US_ITS ---
STUDY: FIRST TRIMESTER OBSTETRICAL ULTRASOUND REASON FOR EXAM: Female, 32 years old viability LMP: September 02, 2022. TECHNIQUE: Transvaginal TECHNICAL QUALITY: Adequate. PRIOR ULTRASOUND: Comparison is made with prior study dated October 20, 2022. FINDINGS: There is visualization of a single gestational sac in a normal intrauterine position. The mean sac diameter (MSD) measures 1.22 cm, indicating an estimated gestational age (EGA) of 6 weeks, 0 days. The gestational sac has an elongated appearance. There is no demonstrated yolk sac. The placenta is non-visualized. There is no demonstrated embryo ( pole). The estimated gestation age (EGA) by LMP is 7 weeks, 6 days. The estimated date of delivery (AFUA) by LMP is June 09, 2023. The estimated gestation age (EGA) by US is 6 weeks, 0 days. The estimated date of delivery (AFUA) by US is June 22, 2023. The uterus measures 8.7 cm x 5 cm x 4.6 cm. Subchorionic bleed adjacent to the gestational sac. The bleed measures 1.6 cm x 1 cm x 0.6 cm. There is no demonstrated uterine fibroid. The cervix is closed. There is no fluid in the cul de sac. US/Transvaginal w/Preg US IMPRESSION: Elongated shape of an empty gestational sac. Gestational age corresponds to 6 weeks. No pole is seen. Electronically Signed: Hermes Elkins MD at 13:28 EDT ,
== END | disposition home or self-care (01) ==
LOC: US 12:28
PROVIDERS: PCP Family Medicine; Referring Provider Obstetrics & Gynecology; Visit Provider Obstetrics & Gynecology
DX: O36.80X0 Pregnancy with inconclusive fetal viability, not applicable or unspecified (principal); Z3A.00 Weeks of gestation of pregnancy not specified
CPT/HCPCS: 76817

== ENCOUNTER 2022-10-29 06:00 | Day surgery (SDC) | payer OTHER, SELFPAY ==
[2022-10-29] VITALS (7 sets, daily range): BP systolic 115–139; BP diastolic 75–91; PULSE 82–95; RESP 16–18; TEMP 36.2–37.2; O2SAT 99–100; BMI 38.2
--- NOTE | 2022-10-29 | POC_PTH ---
PATIENT: GELAC[place] [facility] [id number] AGE/SX: 32/F ROOM: RE10/29/[address]: Dr. Chuyita Langston DO : 1990 BED: DIS: 10/29/2022 SPEC #: [id number] RECD: 10/29/22 10:18 STATUS: CHERIE SAMSMargret #: [id number] KARIME: 10/29/22 00:[address]: Chuyita Langston DEPT: SURGICAL PATHOLOGY RECD BY: Adrian Santo ENTERED: 10/29/22 10:18 SP TYPE: PROD CONC OTHR DR: Mariana Guerrero DO Tissues: Product of conception, NOS Procedures: Surgery Specimen Level IV HEADER OPERATION: Suction dilation and curettage PRE-OP DIAGNOSIS: Incomplete TISSUE SUBMITTED: Products of conception MICROSCOPIC DIAGNOSIS Products of conception, dilation and curettage: [place]id[place], gestational endometrium and immature chorionic villi (products of conception), clinically incomplete . NO:gloria 11/01/2022 MICROSCOPIC DESCRIPTION Slides are reviewed. GROSS DESCRIPTION Received in fixative is one container labeled with the patient's name and designated products of conception. The specimen consists of multiple irregular fragments of pink-red soft tissue that in aggregate measure 5.0 x 5.0 x 1.5 cm. No tissue is identified. Clerical Adjudicator tissue is submitted in three cassettes. / NO:gloria 10/29/2022 TC:5 CPT: 98481
[2022-10-29] MEDS: Lactated Ringers 1,000 ML 15 ML IV (06:46)
[2022-10-29] MEDS: Doxycycline 100 MG CAPSULE PO (06:46)
[2022-10-29] MEDS: Lidocaine 1% (20 ml mdv) 20 ML Vial (06:49)
--- NOTE | 2022-10-29 07:22 | HP.PCM_ITS ---
History and Physical Date of Admission: 10/29/22 Intake Vital Signs ? 04/29/2215:33 10/27/2313:45 10/27/2313:45 Height 5 ft 7 in 5 ft 7 in 5 ft 7 in Weight: ? 244 lb 6 oz ? BMI ? 38.2 ? BP ? 137/85 H ? Intake Visit Reasons:?viability f/u, pt has scan at 12:30pm Early Childhood Associate Required: No Is patient in pain?: No Allergies No Known Allergies Allergy (Verified 10/27/22 14:45) Medications citalopram 40 mg tablet 40 mg PO DAILY #30 tabs 04/06/22 [Rx Confirmed 10/27/22] Post menopausal: No Patient : No : [facility] Medical History? Anemia Anxiety Hyperlipidemia Obesity (BMI 30-39.9) Surgical History? History of wisdom tooth extraction, class II edentulism Family History? Other Breast cancer Diabetes Hypertension Thyroid disorder Social History? adopted:? No household members:? spouse housing:? house current occupational status:? employed current occupation:? [employer] pets and animals:? Yes history of recent travel:? No sexually active:? Yes Smoking Status:? Never smoker second hand exposure:? No alcohol intake:? never substance use type:? does not use caffeine:? Yes what type of physical activity do you participate in:? walking seatbelt use:? always do you feel safe at home:? Yes additional social history:? [employer] HPI viability f/u, pt has scan at 12:30pm Details: GELACIO FERRER is a 32 year old who presents for follow up after ultrasound today. the last 3 quantitative levels show minimal rise and the ultrasound shows an elongated gestational sac without yolk sac or pole. The diagnosis of missed was made. She is scheduled for a suction dilation and curettage. History ? ? ? 2 ? Elective abortions ? Hx Para ? ? ? 1 ? Spontaneous abortions ? Hx # Term Pregnancies ? Ectopic pregnancies ? Hx # Pregnancies ? Multiple births ? # of living children ? ? ? 1 Past Pregnancies Del. Date Name GA/Weeks Outcome Route Bth Weight Infant Gen Labor Lgth Anesthesia Del Locatn Provider FOB 02/17/20 Erin 38 live - full term 7lbs 4oz Female ? [facility] Jonah Delivery Date: 02/17/20? Last Updated by: Aminata Paredes ? ? ? prolonged induction; hemorrhage at delivery ROS Const ROS Unobtainable: All systems reviewed & are unremarkable except as noted in H Resp Resp: Reports system reviewed and no additional complaints, except as document ed; Denies cough GI GI: Reports as per HPI Psych Psych: Reports system reviewed and no additional complaints, except as documented Exam Const General: cooperative, healthy appearing, comfortable and no acute distress Resp Effort & Inspection: normal respiratory effort Skin General: no rashes or lesions noted Psych Appearance: grossly normal Speech and Movement: speech and movement normal Coding Level of Care Code Off vis,est,level 3 Diagnoses Incomplete ? O03.4 Assessment and Plan Assessment and Plan (1) Incomplete : ?Status:?Acute ?Plan: treatment options include cytotec vs D&C. risks and benefits of both discussed. After discussing the patient's diagnosis and treatment plan options, patient wishes to proceed with surgical management. I have discussed with the patient the risks, benefits, and alternatives of the procedure which include but are not limited to risks of anesthesia, bleeding, infection, possible damage to bowel, bladder, or surrounding vasculature which could lead to additional surgery to evaluate any complications. Patient agrees to procedure and wishes to proceed. ACOG/uptodate references given for additional information regarding procedure.
--- NOTE | 2022-10-29 07:23 | DCINST_ITS ---
Discharge Instructions Diet Discharge Diet: No restrictions Activity Discharge Activity: Return to Normal Activity, May Shower and May Take a Tub Bath (after 1 week) May resume sexual activity in: 1-2 weeks Weight Bearing Status: Weight bearing as tolerated Lifting Restrictions: none Dressing / Incision Call your doctor if you observe: Fever of 101 or Higher, Using more than 1 pad per hour, Shortness of breath and Uncontrolled pain Follow Up Care Please Follow Up With: Chuyita Langston DO When: Call [phone] to schedule appointment. Test Results: Test results from this visit will be discussed in further detail at your follow- up appointment, if applicable. Discharge Plan Admission Primary Reason for Your Visit: dilation and curettage Attending Provider: Chuyita Langston Primary Care Provider: Mariana Guerrero Discharge Orders/Prescriptions Prescriptions: New ibuprofen 800 mg tablet 800 mg PO Q8H PRN (Reason: pain) Qty: 30 0RF Continued [id number] 1 mg Tablet 1 tab PO QHS citalopram 40 mg tablet 40 mg PO QHS Referrals / Follow Up: Mariana Guerrero DO [Primary Care Provider] - Disposition Disposition (needs filled in before D/C Order can be placed): Home, Self Care
--- NOTE | 2022-10-29 07:24 | OP.PCM_ITS ---
Report of Operation Date of Procedure: 10/29/22 Pre-Operative Diagnosis: 32 y/o @ unknown gestational age, empty gestational sac, missed Post-Operative Diagnosis: 32 y/o @ unknown gestational age, empty gestational sac, missed Surgery/Procedure Performed:: suction dilation and curettage Description of Surgical Findings:: 11 cm uterus, mild amount of products of conception Surgeon: Chuyita Langston internal sales engineer: None Type of Anesthesia: MAC/Supplemental/Local Specimen's removed: products of conception Estimated Blood Loss (mL): 50cc Description of Procedure: Patient was taken to the operating room and placed under MAC local anesthesia. She was prepped and draped in the normal sterile fashion the dorsal lithotomy position. Bladder was drained of clear urine and anterior lip of the cervix was grasped and the uterus sounded to 11cm. Cervix was progressively dilated to allow passage of a size 7 suction curette. Progressive passes were made removing the retained products of conception without complication. Sharp curettage confirmed complete removal of the retained products. All instruments were removed from the vagina and excellent hemostasis was noted and the patient was taken to recovery in stable condition. Grafts/Implants Used: none Complications none Admit VTE Documentation VTE Present on Admission: No Multi Select Codes Urinary/Genital Urinary/Genital CPT Codes: 16007 Surg Trtmt missed Ab 1TM
[2022-10-29] MEDS: Methylergonovine 0.2 MG/ML Ampul IM (08:22)
[2022-10-29] MEDS: Ondansetron 4 MG/2 ML Vial IM (08:24)
== END 2022-10-29 08:57 | disposition home or self-care (01) ==
LOC: SDC 06:01 → AC 06:05
PROVIDERS: PCP Family Medicine; Referring Provider Obstetrics & Gynecology; Visit Provider Obstetrics & Gynecology
PROC: (CPT 59820; principal; 2022-10-29 07:15)
DX: O02.1 Missed abortion (principal); O99.210 Obesity complicating pregnancy, unspecified trimester; E66.9 Obesity, unspecified
CPT/HCPCS: 59820; 01965; 88305; J7120; J2405

== ENCOUNTER → 2023-01-03 | Outpatient (CLI) | payer OTHER, SELFPAY ==
[2023-01-03 11:18] LABS: hCG Titer Quant., Serum 158 mIU/mL (1-3)
== END | disposition home or self-care (01) ==
PROVIDERS: PCP Family Medicine; Referring Provider Obstetrics & Gynecology; Visit Provider Obstetrics & Gynecology
DX: N91.2 Amenorrhea, unspecified (principal)
CPT/HCPCS: 36415; 84702

== ENCOUNTER → 2023-01-05 | Outpatient (CLI) | payer OTHER, SELFPAY ==
[2023-01-05 13:04] LABS: hCG Titer Quant., Serum 392 mIU/mL (1-3)
== END | disposition home or self-care (01) ==
PROVIDERS: PCP Family Medicine; Referring Provider Obstetrics & Gynecology; Visit Provider Obstetrics & Gynecology
DX: N91.2 Amenorrhea, unspecified (principal)
CPT/HCPCS: 36415; 84702

== ENCOUNTER → 2023-01-12 | Outpatient (CLI) | payer OTHER, SELFPAY ==
[2023-01-12 17:42] LABS: hCG Titer Quant., Serum 4481 mIU/mL (1-3)
== END | disposition home or self-care (01) ==
PROVIDERS: PCP Family Medicine; Referring Provider Obstetrics & Gynecology; Visit Provider Obstetrics & Gynecology
DX: N91.2 Amenorrhea, unspecified (principal)
CPT/HCPCS: 36415; 84702

== ENCOUNTER → 2023-01-25 | Outpatient (CLI) | payer OTHER, SELFPAY ==
--- NOTE | 2023-01-25 14:23 | US_ITS ---
INDICATION: viability EXAMINATION: Ultrasound US OB Transvaginal TECHNIQUE: Transabdominal pelvic ultrasound was performed. Grayscale, spectral waveform, and color flow Doppler evaluation of the adnexa. COMPARISON: Prior study dated: October 27, 2022 LMP: [December 05, 2022 FINDINGS: UTERUS: 10.0 x 5.3 x 4.7 cm. RIGHT OVARY: 2.5 x 1.9 x 1.9 cm. Normal. LEFT OVARY: 2.8 x 2.1 x 2.8 cm. Normal. FREE FLUID: None. INTRAUTERINE GESTATIONAL SAC: Single. The mean sac diameter measures 2.14 cm. YOLK SAC: Identified the yolk sac measures 0.3 cm. POLE: Identified. The crown-rump length measures 1.04 cm . ESTIMATED GESTATION AGE: 7 weeks and 1 day. HEART MOTION: 140 bpm. PLACENTA: Not visualized due to age. SUBCHORIONIC HEMORRHAGE: There is a 0.7 x 0.7 x 1.7 cm subchorionic fluid collection. AMNIOTIC FLUID: Qualitatively normal. US/Transvaginal w/Preg US IMPRESSION: Single live intrauterine . Estimated gestational age is 7 weeks and 1 day. 0.7 x 0.7 x 1.7 cm subchorionic hemorrhage. Electronically Signed: Traci Castellanos MD at 8:31 EDT ,
== END | disposition home or self-care (01) ==
LOC: OPUS 14:23
PROVIDERS: PCP Family Medicine; Referring Provider Obstetrics & Gynecology; Visit Provider Obstetrics & Gynecology
DX: N91.2 Amenorrhea, unspecified (principal)
CPT/HCPCS: 76817

== ENCOUNTER → 2023-02-02 | Outpatient (CLI) | payer OTHER, SELFPAY ==
[2023-02-06 07:07] LABS: Chlamydia By Nucleic Acid AMP Negative (Negative); Gonococcus By Nucleic Acid AMP Negative (Negative)
== END | disposition home or self-care (01) ==
PROVIDERS: PCP Family Medicine; Referring Provider Obstetrics & Gynecology; Visit Provider Obstetrics & Gynecology
DX: Z34.90 Encounter for supervision of normal pregnancy, unspecified, unspecified trimester (principal); Z3A.00 Weeks of gestation of pregnancy not specified
CPT/HCPCS: 87086; 87491; 87591

== ENCOUNTER → 2023-02-19 | Outpatient (CLI) | payer OTHER, SELFPAY ==
[2023-02-19 11:21] LABS: Absolute Lymphocyte Count 3.06 X10^3/uL (0.83-4.51); Absolute Neutrophil Count 7.8 X10^3/uL (2.0-7.7); Basophil# 0.03 X10^3/uL; Basophil% 0.3 % (0-1); Eosinophil# 0.14 X10^3/uL; Eosinophils% 1.2 % (0-5); Hematocrit 34.9 % (37-47); Hemoglobin 12.2 g/dL (12.0-15.0); Lymphocyte # 3.06 X10^3/ul (0.83-4.51); Lymphocyte % 26.4 % (19-41); Mean Corpuscular Hgb 29.2 pg (27.0-32.0); Mean Corpuscular Volume 83.5 fL (81-99); Mean Platelet Vol. 9.5 fl (6.2-12.0); Monocyte% 4.3 % (0-10); NRBC Flagged by Analyzer 0 % (0-5); Neutrophil # 7.83 X10^3/uL (2.7-7.7); Neutrophil % 67.4 % (47-70); Platelet Count 367 K/mm3 (150-450); RBC Distribution Width SD 39.4 fl (35.1-43.9); Red Blood Count 4.18 M/mm3 (4.2-5.4); White Blood Count 11.6 K/mm3 (4.4-11.0)
[2023-02-19 11:46] LABS: Glucose Challenge Gest 1H 50g 176 mg/dL (70-140)
[2023-02-21 10:32] LABS: HIV - WCH Non-Reactive (Nonreactive); Hepatitis B Surface Antigen Non-Reactive (Nonreactive); Hepatitis C Antibody Non-Reactive (Nonreactive); Rubella IgG Reactive (Nonreactive); Syphilis Antibodies Non-reactive
== END | disposition home or self-care (01) ==
PROVIDERS: PCP Family Medicine; Referring Provider Obstetrics & Gynecology; Visit Provider Obstetrics & Gynecology
DX: Z34.90 Encounter for supervision of normal pregnancy, unspecified, unspecified trimester (principal); Z3A.00 Weeks of gestation of pregnancy not specified
CPT/HCPCS: 36415; 82950; 85025; 86703; 86762; 86780; 86803; 86850; 86900; 86901; 87340

== ENCOUNTER → 2023-02-21 | Outpatient (CLI) | payer OTHER, SELFPAY ==
[2023-02-21 12:42] LABS: NATERA MAILED SPECIMEN
== END | disposition home or self-care (01) ==
PROVIDERS: PCP Family Medicine; Referring Provider Registered Nurse; Visit Provider Registered Nurse
DX: Z34.81 Encounter for supervision of other normal pregnancy, first trimester (principal); Z3A.00 Weeks of gestation of pregnancy not specified

== ENCOUNTER → 2023-02-25 | Outpatient (CLI) | payer OTHER, SELFPAY ==
[2023-02-25 10:50] LABS: Glucose GTT-Gestation. Fasting 99 mg/dL (<105)
[2023-02-25 11:30] LABS: Glucose GTT-Gestational 1 Hr 201 mg/dL (<190)
[2023-02-25 12:55] LABS: Glucose GTT-Gestational 2 Hr 175 mg/dL (<165)
[2023-02-25 13:36] LABS: Glucose GTT-Gestational 3 Hr 54 L (<145)
== END | disposition home or self-care (01) ==
LOC: LAB 09:53
PROVIDERS: PCP Family Medicine; Referring Provider Nurse Practitioner Women's Health; Visit Provider Nurse Practitioner Women's Health
DX: O99.810 Abnormal glucose complicating pregnancy (principal); Z3A.00 Weeks of gestation of pregnancy not specified
CPT/HCPCS: 36415; 82951; 82952

== ENCOUNTER 2023-03-15 12:22 | Outpatient (RCR) | payer OTHER, SELFPAY | END 2023-03-22 23:59 | LOC: DC 12:22 | PROVIDERS: PCP Family Medicine; Referring Provider Obstetrics & Gynecology; Visit Provider Obstetrics & Gynecology | DX: O24.419 Gestational diabetes mellitus in pregnancy, unspecified control (principal); Z3A.00 Weeks of gestation of pregnancy not specified; Z71.3 Dietary counseling and surveillance | CPT/HCPCS: 97802 ==

== ENCOUNTER 2023-03-23 13:18 | Outpatient (RCR) | payer OTHER, SELFPAY | END 2023-04-21 23:59 | LOC: DC 13:18 | PROVIDERS: PCP Family Medicine; Referring Provider Obstetrics & Gynecology; Visit Provider Obstetrics & Gynecology | DX: O24.419 Gestational diabetes mellitus in pregnancy, unspecified control (principal); Z71.3 Dietary counseling and surveillance | CPT/HCPCS: 97803 ==

== ENCOUNTER → 2023-04-11 | Outpatient (CLI) | payer OTHER, SELFPAY ==
[2023-04-11 13:40] LABS: Absolute Lymphocyte Count 2.86 X10^3/uL (0.83-4.51); Absolute Neutrophil Count 8.7 X10^3/uL (2.0-7.7); Basophil# 0.03 X10^3/uL; Basophil% 0.2 % (0-1); Eosinophil# 0.16 X10^3/uL; Eosinophils% 1.3 % (0-5); Hematocrit 32.8 % (37-47); Hemoglobin 11.3 g/dL (12.0-15.0); Lymphocyte # 2.86 X10^3/ul (0.83-4.51); Lymphocyte % 22.7 % (19-41); Mean Corp Hgb Conc 34.5 g/dL (32-36); Mean Corpuscular Hgb 29.4 pg (27.0-32.0); Mean Corpuscular Volume 85.4 fL (81-99); Mean Platelet Vol. 10.3 fl (6.2-12.0); Monocyte# 0.76 X10^3/uL; NRBC Flagged by Analyzer 0 % (0-5); Neutrophil # 8.73 X10^3/uL (2.7-7.7); Neutrophil % 69.2 % (47-70); Platelet Count 377 K/mm3 (150-450); RBC Distribution Width CV 13.5 % (11.6-14.6); RBC Distribution Width SD 41.8 fl (35.1-43.9); Red Blood Count 3.84 M/mm3 (4.2-5.4); White Blood Count 12.6 K/mm3 (4.4-11.0)
[2023-04-11 14:03] LABS: ALB/GLOB Ratio 0.7 RATIO (0.9-2.4); AST(SGOT) 12 U/L (15-37); Alanine Aminotransfer ALT/SGPT 20 U/L (13-56); Albumin, Serum 3.1 g/dL (3.2-5.0); Alkaline Phosphatase 88 U/L (45-117); Anion Gap 8 (5-15); BUN 7 mg/dL (7-18); BUN/Creat Ratio 11.6 RATIO (10-20); Calcium,Total 8.6 mg/dL (8.5-10.1); Chloride 107 mmol/L (98-107); EST Glomerular Filtration Rate 123 mL/min (>60); Est Glom Filt Rate - Afr Amer 149 mL/min (>60); Globulin 4.3 g/dL (2.2-4.2); Glucose 83 mg/dL (74-106); Potassium 3.5 mmol/L (3.5-5.1); Protein, Total 7.4 g/dL (6.4-8.2); Sodium Level 138 mmol/L (136-145)
[2023-04-11 15:53] LABS: Protein, Urine (Random) < 6.0 mg/dL (<11.9)
== END | disposition home or self-care (01) ==
PROVIDERS: PCP Family Medicine; Referring Provider Obstetrics & Gynecology; Visit Provider Obstetrics & Gynecology
DX: O16.9 Unspecified maternal hypertension, unspecified trimester (principal); Z3A.00 Weeks of gestation of pregnancy not specified
CPT/HCPCS: 36415; 80053; 82570; 84156; 85025

== ENCOUNTER → 2023-06-08 | Outpatient (CLI) | payer OTHER, SELFPAY ==
[2023-06-08 09:12] LABS: Absolute Lymphocyte Count 2.47 X10^3/uL (0.83-4.51); Absolute Neutrophil Count 10.4 X10^3/uL (2.0-7.7); Basophil# 0.02 X10^3/uL; Basophil% 0.1 % (0-1); Eosinophil# 0.18 X10^3/uL; Eosinophils% 1.3 % (0-5); Hematocrit 31.7 % (37-47); Lymphocyte # 2.47 X10^3/ul (0.83-4.51); Lymphocyte % 17.5 % (19-41); Mean Corp Hgb Conc 34.7 g/dL (32-36); Mean Corpuscular Hgb 29.9 pg (27.0-32.0); Mean Corpuscular Volume 86.1 fL (81-99); Mean Platelet Vol. 9.6 fl (6.2-12.0); Monocyte# 0.81 X10^3/uL; Monocyte% 5.7 % (0-10); NRBC Flagged by Analyzer 0 % (0-5); Neutrophil # 10.42 X10^3/uL (2.7-7.7); Neutrophil % 73.8 % (47-70); Platelet Count 385 K/mm3 (150-450); RBC Distribution Width CV 13.6 % (11.6-14.6); RBC Distribution Width SD 42.2 fl (35.1-43.9); Red Blood Count 3.68 M/mm3 (4.2-5.4); White Blood Count 14.1 K/mm3 (4.4-11.0)
--- OUTSIDE RECORDS SUMMARY | 2023-06-08 09:30 | XMS RPT_ITS | CCD ---
Author Name Unknown Address [address] [place] [address] Organization [facility] Care Team Providers Care Veterans' Counselor Name Role Phone Teo Urena MD Primary Care Provider [phone] TEO URENA Primary Care Unavailable TEO URENA Primary Care Unavailable Teo Urena MD Primary Care Provider [phone] ROSALINA HO Referring UnavailYOBANI Josue Attending HAYLEE Valencia Primary Care Unavailable HAYLEE DUPONT Primary Care Unavailable ROSALINA HO Attending UnavailROSALINA Mohamud Referring Unavailab le Medications Current Medications Medication Drug Class(es) Dates Sig (Normalized) Sig (Original) predniSONE 20 mg oral tablet (1 source) Start: 12-05-2022 End: 12-10-2022 take 2 tablets by mouth once daily predniSONE (DELTASONE) 20 mg tablet Indications: Sore throat Take 2 tablets by mouth once daily for 5 days. 10 tablet 0 12/05/2022 12/10/2022 Active Completed/Discontinued Medications Medication Drug Class(es) Dates Sig (Normalized) Sig (Original) citalopram 40 mg oral tablet (3 sources) Serotonin Reuptake Inhibitor Start: 03-27-2021 citalopram (CELEXA) 40 mg tablet Take 40 mg by mouth. 0 03/27/2021 Active Problems Active Problems Problem Classification Problem Date Documented Da te Episodic/Chronic Anxiety disorders (3 sources) Anxiety; Translations: [Anxiety disorder, unspecified] 05-18-2021 Chronic Disorders of lipid metabolism (3 sources) Mixed hyperlipidemia; Translations: [Mixed hyperlipidemia] Onset: 11-03-2016 11-03-2016 Chronic Other upper respiratory infections (3 sources) Sore throat symptom; Translations: [Acute pharyngitis, unspecified] Episodic Past or Other Problems Problem Classification Problem Date Documented Da te Episodic/Chronic Other acquired deformities (3 sources) Acquired unequal leg length; Translations: [Unequal limb length (acquired), unspecified site] Onset: 07-21-2006 07-21-2006 Episodic Other connective tissue disease (3 sources) Pain in limb; Translations: [Pain in unspecified limb] Onset: 08-15-2006 08-15-2006 Episodic Results Test Name Value Interpretation Reference Range Facil ity Vital Signs Date Time Vital Sign Value Performing Clinician Patel roach 12-05-2022 08:40-0400 Body temperature 99.81 [degF] Omkar Garcia DIESEL SERVICE APPRENTICE.UX DESIGN LEAD Work Phone: [facility] 12-05-2022 08:40-0400 Body weight 110.13 kg Omkar Garcia DIESEL SERVICE APPRENTICE.UX DESIGN LEAD Work Phone: [facility] 12-05-2022 08:40-0400 Diastolic blood pressure 76 mm[Hg] Omkar Garcia DIESEL SERVICE APPRENTICE.UX DESIGN LEAD Work Phone: [facility] 12-05-2022 08:40-0400 Heart rate 113 /min Omkar Garcia DIESEL SERVICE APPRENTICE.UX DESIGN LEAD Work Phone: [facility] 12-05-2022 08:40-0400 Respiratory rate 20 /min Omkar Garcia DIESEL SERVICE APPRENTICE.UX DESIGN LEAD Work Phone: [facility] 12-05-2022 08:40-0400 SaO2% (BldA) [Mass fraction] 98 % Omkar Garcia DIESEL SERVICE APPRENTICE.UX DESIGN LEAD Work Phone: [facility] 12-05-2022 08:40-0400 Systolic blood pressure 112 mm[Hg] Omkar Garcia DIESEL SERVICE APPRENTICE.UX DESIGN LEAD Work Phone: [facility] 12-20-2021 10:31-0400 Body temperature 97.5 [degF] Zeny Montes PA-C Work Phone: [facility] 12-20-2021 10:31-0400 Body weight 103.96 kg Zeny Montes PA-C Work Phone: [facility] 12-20-2021 10:31-0400 Diastolic blood pressure 70 mm[Hg] Zeny Athy PA-C Work Phone: [facility] 12-20-2021 10:31-0400 Heart rate 99 /min Zeny Athy PA-C Work Phone: [facility] 12-20-2021 10:31-0400 Respiratory rate 18 /min Zeny Athy PA-C Work Phone: [facility] 12-20-2021 10:31-0400 SaO2% (BldA) [Mass fraction] 98 % Zeny Athy PA-C Work Phone: [facility] 12-20-2021 10:31-0400 Systolic blood pressure 130 mm[Hg] Zeny Athy PA-C Work Phone: [facility] Encounters Encounter Date Encounter Type Care Provider Facility Start: 05-09-2023 ambulatory HAYLEE DUPONT [facility] Start: 04-21-2023 End: 04-21-2023 ambulatory ROSALINA HO [facility] Start: 12-05-2022 End: 12-05-2022 ambulatory TEO URENA Facility:[facility] Start: 12-05-2022 End: 12-05-2022 Patient encounter procedure Omkar Garcia APRN.CNP Work Phone: [facility] Procedures Date Procedure Procedure Detail Performing Clinician Start: 12-05-2022 STREP A MOLECULAR (POC) Linda ANDERSON Work Phone: Start: 12-20-2021 STREP A MOLECULAR (POC) Zeny Montes PA-C Work Phone: Start: 01-27-2016 Adult depression screening assessment Zeny Montes PA-C Work Phone: Plan of Treatment Date Care Activity Detail Author Start: 01-21-2023 Influenza vaccination INFLUENZA (#1) [facility] Start: 05-23-2022 DEPRESSION ASSESSMENT DEPRESSION ASSESSMENT [facility] Start: 09-01-2022 Influenza vaccination INFLUENZA (#1) [facility] Start: 12-20-2021 End: 01-03-2022 SARS-CoV-2 (COVID-19) RNA [Presence] in Respiratory specimen by TAQUERIA with probe detection 2019 CORONAVIRUS Microbiology Routine Viral URI Expected: 12/20/2021, Expires: 01/03/2022 [facility] Work Phone: Immunizations Immunization Date Immunization Notes Care Provider Fa cilirachana 09-21-1999 Chicken Pox (disease) Zeny bledsoe PA-C Work Phone: [facility] Work Phone: 07-24-1996 diphtheria, tetanus toxoids and acellular pertussis vaccine Zeny Montes PA-C Work Phone: [facility] Work Phone: 07-24-1996 measles, mumps and rubella virus vaccine Zeny Montes PA-C Work Phone: [facility] Work Phone: 07-24-1996 trivalent poliovirus vaccine, live, oral Zeny Montes PA-C Work Phone: [facility] Work Phone: 04-23-1993 diphtheria, tetanus toxoids and pertussis vaccine Zeny Montes PA-C Work Phone: [facility] Work Phone: 04-23-1993 trivalent poliovirus vaccine, live, oral Zeny Montes PA-C Work Phone: [facility] Work Phone: 12-25-1992 haemophilus influenz ae type b vaccine, HbOC conjugate Zeny Montes PA-C Work Phone: [facility] Work Phone: 12-25-1992 measles, mumps and rubella virus vaccine Zeny Athy PA-C Work Phone: [facility] Work Phone: 04-10-1992 diphtheria, tetanus toxoids and pertussis vaccine Zeny Athy PA-C Work Phone: [facility] Work Phone: 04-10-1992 haemophilus influenz ae type b vaccine, HbOC conjugate Zeny Athy PA-C Work Phone: [facility] Work Phone: 02-07-1992 diphtheria, tetanus toxoids and pertussis vaccine Zeny Athy PA-C Work Phone: [facility] Work Phone: 02-07-1992 haemophilus influenz ae type b vaccine, HbOC conjugate Zeny Athy PA-C Work Phone: [facility] Work Phone: 02-07-1992 trivalent poliovirus vaccine, live, oral Zeny Athy PA-C Work Phone: [facility] Work Phone: 1991 diphtheria, tetanus toxoids and pertussis vaccine Zeny Athy PA-C Work Phone: [facility] Work Phone: 1991 haemophilus influenz ae type b vaccine, HbOC conjugate Zeny Athy PA-C Work Phone: [facility] Work Phone: 1991 trivalent poliovirus vaccine, live, oral Zeny Athy PA-C Work Phone: [facility] Work Phone: Payers Date Payer Category Payer Private Health Insurance [employer] PPO [id number] 2021-Present [phone] [address] [place] [address] [facility] [id number] 2021 Private Health Insurance [id number] 2021 Private Health Insurance [employer] PPO [id number] 2021-Present [phone] [address] [place] [address] PPO [id number] 1991 Unknown [id number] 1991 Unknown [id number] Social History Date Type Detail Facility Start: [facility]05[facility] Start: 12-20-2021 End: 12-05-2022 Alcohol intake Current drinker of alcohol (finding) [facility] Start: 11-07-2015 History SDOH Alcohol Comment rare [facility] Start: 1990 Sex Assigned At Not on file [facility] Start: 12-05-2022 Tobacco use and exposure Smoke less tobacco non-user [facility] Start: 12-05-2022 History of Social function [facility] Start: 12-05-2022 Tobacco use panel [facility] Progress note 12-05-2022 Note Date & Type Note Facility 12-05-2022 Note HNO ID: [id number] Author: Omkar Garcia APRN.UX DESIGN LEAD Service: ? Author Type: Nurse Practitioner Type: Progress Notes Filed: 12/05/2022 9:58 AM Note Text: Subjective HPI HPI Gelacio rOlando is a 32 year old female who presents today for CC of st, fever. This started 2 days ago. Has tried otc medication for relief. Symptoms are worsened by nothing. No sick exposures known. Denies possibility of being . nonsmoker. .Patient presents with: Sore Throat: X 2 days PAST MEDICAL HISTORY Diagnosis Date Anxiety PMH - PAST MEDICAL HISTORY OF Color Vision - Normal PAST SURGICAL HISTORY Procedure Laterality Date EXTRACTION, ERUPTED TOOTH OR EXPOSED ROOT (ELEVATION AND/OR FORCEPS REMOVAL) ALLERGIES Patient has no known allergies. MEDICATIONS citalopram (CELEXA) 40 mg tablet Take 40 mg by mouth. sertraline (ZOLOFT) 25 mg tablet Take 1 tablet by mouth once daily. (Patient not taking: Reported on 12/20/2021 ) Norgestimate-Ethinyl Estradiol (ORTHO TRI-CYCLEN, 28,) 0.18/0.215/0.25 mg-35 mcg (28) tab Take 1 tablet by mouth once daily. (Patient not taking: Reported on 12/05/2022) triamcinolone acetonide (KENALOG) 0.1 % cream Apply 1 application to affected area three times daily. Apply sparingly to area for rash/itching. (Patient not taking: Reported on 12/05/2022) FAMILY HISTORY Problem Relation Age of Onset Cancer Maternal Grandfather Heart Maternal Grandfather Hypertension Maternal Grandfather Diabetes Other Maternal and Paternal side None Mother None Father Social History Tobacco Use Smoking status: Never Smokeless tobacco: Never Substance Use Topics Alcohol use: Yes Comment: rare Drug use: No Review of Systems Constitutional: Positive for fever. HENT: Positive for sore throat. Negative for congestion, ear pain and nosebleeds. Respiratory: Negative for cough, shortness of breath and wheezing. Musculoskeletal: Negative for neck pain. Objective Blood pressure 112/76, pulse 113, temperature 37.7 ?C (99.8 ?F), resp. rate 20, weight 110.1 kg (242 lb 12.8 oz), last menstrual period 12/03/2021, SpO2 98 %. Physical Exam Constitutional: General: She is not in acute distress. Appearance: She is not toxic-appearing or diaphoretic. HENT: Head: Normocephalic and atraumatic. Nose: Nose normal. Mouth/Throat: Pharynx: Uvula midline. No pharyngeal swelling, oropharyngeal exudate, posterior oropharyngeal erythema or uvula swelling. Eyes: General: Lids are normal. No scleral icterus. Right eye: No discharge. Left eye: No discharge. Conjunctiva/sclera: Conjunctivae normal. Pupils: Pupils are equal, round, and reactive to light. Neck: Trachea: Trachea normal. Cardiovascular: Rate and Rhythm: Normal rate and regular rhythm. Heart sounds: Normal heart sounds. Pulmonary: Effort: Pulmonary effort is normal. Breath sounds: Normal breath sounds. Abdominal: General: Bowel sounds are normal. Palpations: Abdomen is soft. There is no hepatomegaly or splenomegaly. Tenderness: There is no abdominal tenderness. There is no guarding. Musculoskeletal: Cervical back: Normal range of motion and neck supple. Lymphadenopathy: Cervical: No cervical adenopathy. Right cervical: No superficial cervical adenopathy. Left cervical: No superficial cervical adenopathy. Skin: Findings: No rash. Neurological: Mental Status: She is alert and oriented to person, place, and time. ASSESSMENT/PLAN: 1. Sore throat - ICD9: 462, ICD10: J02.9 - suspect viral - Alere Strep Test neg, no culture pending - Discussed supportive care treatment with fluids, rest and analgesia. - Contagious dz precautions discussed- including considered contagious until on antibiotics for 24 hours - The patient should follow up in 3-5 days if symptoms persist or worsen - STREP A MOLECULAR (POC) - PREDNISONE 20 MG TABLET Omkar Garcia APRN.CNP [facility] History of Present illness Narrative 12-05-2022 Omkar Garcia APRN.CNP - 12/05/2022 8:45 AM EDT Note Date & Type Note Facility 12-05-2022 History of Presen t illness Narrative Subjective HPI HPI Gelacio Orlando is a 32 year old female who presents today for CC of st, fever. This started 2 days ago. Has tried otc medication for relief. Symptoms are worsened by nothing. No sick exposures known. Denies possibility of being . nonsmoker. .Patient presents with: Sore Throat: X 2 days PAST MEDICAL HISTORY Diagnosis Date Anxiety PMH - PAST MEDICAL HISTORY OF Color Vision - Normal PAST SURGICAL HISTORY Procedure Laterality Date EXTRACTION, ERUPTED TOOTH OR EXPOSED ROOT (ELEVATION AND/OR FORCEPS REMOVAL) ALLERGIES Patient has no known allergies. MEDICATIONS citalopram (CELEXA) 40 mg tablet Take 40 mg by mouth. sertraline (ZOLOFT) 25 mg tablet Take 1 tablet by mouth once daily. (Patient not taking: Reported on 12/20/2021 ) Norgestimate-Ethinyl Estradiol (ORTHO TRI-CYCLEN, 28,) 0.18/0.215/0.25 mg-35 mcg (28) tab Take 1 tablet by mouth once daily. (Patient not taking: Reported on 12/05/2022) triamcinolone acetonide (KENALOG) 0.1 % cream Apply 1 application to affected area three times daily. Apply sparingly to area for rash/itching. (Patient not taking: Reported on 12/05/2022) FAMILY HISTORY Problem Relation Age of Onset Cancer Maternal Grandfather Heart Maternal Grandfather Hypertension Maternal Grandfather Diabetes Other Maternal and Paternal side None Mother None Father Social History Tobacco Use Smoking status: Never Smokeless tobacco: Never Substance Use Topics Alcohol use: Yes Comment: rare Drug use: No Review of Systems Constitutional: Positive for fever. HENT: Positive for sore throat. Negative for congestion, ear pain and nosebleeds. Respiratory: Negative for cough, shortness of breath and wheezing. Musculoskeletal: Negative for neck pain. Objective Blood pressure 112/76, pulse 113, temperature 37.7 C (99.8 F), resp. rate 20, weight 110.1 kg (242 lb 12.8 oz), last menstrual period 12/03/2021, SpO2 98 %. Physical Exam Constitutional: General: She is not in acute distress. Appearance: She is not toxic-appearing or diaphoretic. HENT: Head: Normocephalic and atraumatic. Nose: Nose normal. Mouth/Throat: Pharynx: Uvula midline. No pharyngeal swelling, oropharyngeal exudate, posterior oropharyngeal erythema or uvula swelling. Eyes: General: Lids are normal. No scleral icterus. Right eye: No discharge. Left eye: No discharge. Conjunctiva/sclera: Conjunctivae normal. Pupils: Pupils are equal, round, and reactive to light. Neck: Trachea: Trachea normal. Cardiovascular: Rate and Rhythm: Normal rate and regular rhythm. Heart sounds: Normal heart sounds. Pulmonary: Effort: Pulmonary effort is normal. Breath sounds: Normal breath sounds. Abdominal: General: Bowel sounds are normal. Palpations: Abdomen is soft. There is no hepatomegaly or splenomegaly. Tenderness: There is no abdominal tenderness. There is no guarding. Musculoskeletal: Cervical back: Normal range of motion and neck supple. Lymphadenopathy: Cervical: No cervical adenopathy. Right cervical: No superficial cervical adenopathy. Left cervical: No superficial cervical adenopathy. Skin: Findings: No rash. Neurological: Mental Status: She is alert and oriented to person, place, and time. ASSESSMENT/PLAN: 1. Sore throat - ICD9: 462, ICD10: J02.9 - suspect viral - Alere Strep Test neg, no culture pending - Discussed supportive care treatment with fluids, rest and analgesia. - Contagious dz precautions discussed- including considered contagious until on antibiotics for 24 hours - The patient should follow up in 3-5 days if symptoms persist or worsen - STREP A MOLECULAR (POC) - PREDNISONE 20 MG TABLET Omkar Garcia APRN.SVETLANA documented in this encounter [facility] Note 12-21-2021 Telephone Encounter - Kelly Valladares MA - 12/21/2021 8:30 AM EDTTelephone Encounter - Aletha Selby APRN.SVETLANA - 12/21/2021 7:13 AM EDT Note Date & Type Note Facility 12-21-2021 Miscellaneous Notes Notified pt of results. Pt verbalized understanding. Kelly Valladares MA Negative for covid please notify thank you documented in this encounter [facility] Progress note 12-20-2021 Note Date & Type Note Facility 12-20-2021 Note HNO ID: [id number] Author: Zeny Montes PA-C Service: ? Author Type: Physician Rn Residential Type: Progress Notes Filed: 12/20/2021 1:14 PM Note Text: This note was created using [employer]. Subjective Gelacio Orlando is a 31 year old female. HPI Presents with a sore throat, postnasal drip, minimal cough. Her daughter has cold symptoms right now and also tested positive for strep. She denies fever. No vomiting or diarrhea. No chest pain or shortness of breath. She wanted to have a strep test to make sure she did not have strep. She did not take an at home covid19 test. Review of Systems Constitutional: Negative for chills and fever. HENT: Positive for congestion, postnasal drip and sore throat. Respiratory: Positive for cough. Cardiovascular: Negative. Gastrointestinal: Negative. Genitourinary: Negative. Musculoskeletal: Negative. All other systems reviewed and are negative. PAST MEDICAL HISTORY Diagnosis Date - Anxiety - PMH - PAST MEDICAL HISTORY OF Color Vision - Normal Current Outpatient Medications Medication Sig Dispense Refill - citalopram (CELEXA) 40 mg tablet Take 40 mg by mouth. - Norgestimate-Ethinyl Estradiol (ORTHO TRI-CYCLEN, 28,) 0.18/0.215/0.25 mg-35 mcg (28) tab Take 1 tablet by mouth once daily. 84 tablet 3 - sertraline (ZOLOFT) 25 mg tablet Take 1 tablet by mouth once daily. (Patient not taking: Reported on 12/20/2021 ) 60 tablet 0 - triamcinolone acetonide (KENALOG) 0.1 % cream Apply 1 application to affected area three times daily. Apply sparingly to area for rash/itching. 60 g 0 No current facility-administered medications for this visit. PAST SURGICAL HISTORY Procedure Laterality Date - EXTRACTION, ERUPTED TOOTH OR EXPOSED ROOT (ELEVATION AND/OR FORCEPS REMOVAL) FAMILY HISTORY Problem Relation Age of Onset - Cancer Maternal Grandfather - Heart Maternal Grandfather - Hypertension Maternal Grandfather - Diabetes Unknown Maternal and Paternal side - None Mother - None Father Social History Tobacco Use - Smoking status: Never Smoker - Smokeless tobacco: Never Used Substance Use Topics - Alcohol use: Yes Comment: rare - Drug use: No Objective BP 130/70 Pulse 99 Temp 36.4 ?C (97.5 ?F) Resp 18 Wt 104 kg (229 lb 3.2 oz) LMP 12/03/2021 SpO2 98% BMI 35.90 kg/m? Physical Exam Vitals reviewed. Constitutional: Appearance: Normal appearance. HENT: Head: Normocephalic and atraumatic. Right Ear: Tympanic membrane, ear canal and external ear normal. Left Ear: Tympanic membrane, ear canal and external ear normal. Nose: Nose normal. Mouth/Throat: Mouth: Mucous membranes are moist. Pharynx: Pharyngeal swelling present. No oropharyngeal exudate or posterior oropharyngeal erythema. Tonsils: No tonsillar exudate. 1+ on the right. 1+ on the left. Cardiovascular: Rate and Rhythm: Normal rate and regular rhythm. Heart sounds: Normal heart sounds. Pulmonary: Effort: Pulmonary effort is normal. Breath sounds: Normal breath sounds. Musculoskeletal: Cervical back: Neck supple. Lymphadenopathy: Cervical: No cervical adenopathy. Skin: General: Skin is warm and dry. Findings: No rash. Neurological: Mental Status: She is alert. Assessment and Plan ASSESSMENT/PLAN: 1. Sore throat - ICD9: 462, ICD10: J02.9 (primary diagnosis) - Alere Strep Test negative, no culture pending - STREP A MOLECULAR (POC) 2. Viral URI - ICD9: 465.9, ICD10: J06.9 - Discussed viral etiology and rationale for treatment. - Symptomatic treatment with prn analgesia - Supportive care with fluids and rest - Follow up in 3-5 days if symptoms persist or sooner if worsening of symptoms - 2019 CORONAVIRUS Zeny Montes PA-C [facility] History of Present illness Narrative 12-20-2021 Zeny Montes PA-C - 12/20/2021 1:11 PM EDT Note Date & Type Note Facility 12-20-2021 History of Presen t illness Narrative This note was created using [employer]. Subjective Gelacio Orlando is a 31 year old female. HPI Presents with a sore throat, postnasal drip, minimal cough. Her daughter has cold symptoms right now and also tested positive for strep. She denies fever. No vomiting or diarrhea. No chest pain or shortness of breath. She wanted to have a strep test to make sure she did not have strep. She did not take an at home covid19 test. Review of Systems Constitutional: Negative for chills and fever. HENT: Positive for congestion, postnasal drip and sore throat. Respiratory: Positive for cough. Cardiovascular: Negative. Gastrointestinal: Negative. Genitourinary: Negative. Musculoskeletal: Negative. All other systems reviewed and are negative. PAST MEDICAL HISTORY Diagnosis Date Anxiety PMH - PAST MEDICAL HISTORY OF Color Vision - Normal Current Outpatient Medications Medication Sig Dispense Refill citalopram (CELEXA) 40 mg tablet Take 40 mg by mouth. Norgestimate-Ethinyl Estradiol (ORTHO TRI-CYCLEN, 28,) 0.18/0.215/0.25 mg-35 mcg (28) tab Take 1 tablet by mouth once daily. 84 tablet 3 sertraline (ZOLOFT) 25 mg tablet Take 1 tablet by mouth once daily. (Patient not taking: Reported on 12/20/2021 ) 60 tablet 0 triamcinolone acetonide (KENALOG) 0.1 % cream Apply 1 application to affected area three times daily. Apply sparingly to area for rash/itching. 60 g 0 No current facility-administered medications for this visit. PAST SURGICAL HISTORY Procedure Laterality Date EXTRACTION, ERUPTED TOOTH OR EXPOSED ROOT (ELEVATION AND/OR FORCEPS REMOVAL) FAMILY HISTORY Problem Relation Age of Onset Cancer Maternal Grandfather Heart Maternal Grandfather Hypertension Maternal Grandfather Diabetes Unknown Maternal and Paternal side None Mother None Father Social History Tobacco Use Smoking status: Never Smoker Smokeless tobacco: Never Used Substance Use Topics Alcohol use: Yes Comment: rare Drug use: No Objective BP 130/70 Pulse 99 Temp 36.4 C (97.5 F) Resp 18 Wt 104 kg (229 lb 3.2 oz) LMP 12/03/2021 SpO2 98% BMI 35.90 kg/m Physical Exam Vitals reviewed. Constitutional: Appearance: Normal appearance. HENT: Head: Normocephalic and atraumatic. Right Ear: Tympanic membrane, ear canal and external ear normal. Left Ear: Tympanic membrane, ear canal and external ear normal. Nose: Nose normal. Mouth/Throat: Mouth: Mucous membranes are moist. Pharynx: Pharyngeal swelling present. No oropharyngeal exudate or posterior oropharyngeal erythema. Tonsils: No tonsillar exudate. 1+ on the right. 1+ on the left. Cardiovascular: Rate and Rhythm: Normal rate and regular rhythm. Heart sounds: Normal heart sounds. Pulmonary: Effort: Pulmonary effort is normal. Breath sounds: Normal breath sounds. Musculoskeletal: Cervical back: Neck supple. Lymphadenopathy: Cervical: No cervical adenopathy. Skin: General: Skin is warm and dry. Findings: No rash. Neurological: Mental Status: She is alert. Assessment and Plan ASSESSMENT/PLAN: 1. Sore throat - ICD9: 462, ICD10: J02.9 (primary diagnosis) - Alere Strep Test negative, no culture pending - STREP A MOLECULAR (POC) 2. Viral URI - ICD9: 465.9, ICD10: J06.9 - Discussed viral etiology and rationale for treatment. - Symptomatic treatment with prn analgesia - Supportive care with fluids and rest - Follow up in 3-5 days if symptoms persist or sooner if worsening of symptoms - 2019 CORONAVIRUS Zeny Montes PA-C documented in this encounter [facility] Evaluation note Note Date & Type Note Facility documented in this encounter [facility] Evaluation note Note Date & Type Note Facility documented in this encounter [facility] Health Concerns Infection Onset Date Last Indicated Resolved Time COVID-19 Rule-Out 12/20/2021 12/20/2021 Infection Onset Date Last Indicated Resolved Time COVID-19 Rule-Out 12/20/2021 12/20/2021 12/21/2021 12:03 AM EDT Summary Purpose Family History No Family History Records FoundNo Family History Records Found Advance Directives No Advanced Directives Records FoundNo Advanced Directives Records Found Additional Source Comments Source Comments (unrecognize d section and content) In the event this informatio n is protected by the Federal Confidentiality of Alcohol and Drug Abuse Patient Records regulations: The Federal rules restrict any use of the information to criminally investigate or prosecute any alcohol or drug abuse patient.[facility] the event this information is protected by the Federal Confidentiality of Alcohol and Drug Abuse Patient Records regulations: The Federal rules restrict any use of the information to criminally investigate or prosecute any alcohol or drug abuse patient.[facility] the event this information is protected by the Federal Confidentiality of Alcohol and Drug Abuse Patient Records regulations: The Federal rules restrict any use of the information to criminally investigate or prosecute any alcohol or drug abuse patient.[facility] Reason for Visit (unrecogniz ed section and content) Reason Comments Results Reason Comments Sore Throat X 2 days Care Teams (unrecognized sec tion and content) Veterans' Counselor Relationship Specialty Start Date End Date Teo Urena MD [address] [facility] [address] [place] [address] PCP - General Internal Medicine 12/20/21 Veterans' Counselor Relationship Specialty Start Date End Date Teo Urena MD [address] [facility] [address] [place] [address] PCP - General Internal Medicine 12/20/21 INFORMATION SOURCE (unrecogn ized section and content) DATE CREATED AUTHOR AUTHOR'S ORGANIZ ATION 05/10/2023 [facility] FOR RECORDS PERTAINING TO PATIENTS WHO ARE OR HAVE BEEN ENROLLED IN A CHEMICAL DEPENDENCY/SUBSTANCEABUSE PROGRAM, SOME INFORMATION MAY BE OMITTED. This clinical summary was aggregated from multiple sources. Caution should be exercised in using it in the provision of clinical care. This summary normalizes information from multiple sources, and as a consequence, information in this document may materially change the coding, format and clinical context of patient data. In addition, data may be omitted in some cases. CLINICAL DECISIONS SHOULD BE BASED ON THE PRIMARY CLINICAL RECORDS. [employer] [facility]. provides no warranty or guarantee of the accuracy or completeness of information in this document.
[2023-06-08 10:21] LABS: HIV - WCH Non-Reactive (Nonreactive); Syphilis Antibodies Non-reactive
== END | disposition home or self-care (01) ==
LOC: PAVLAB 09:00
PROVIDERS: Visit Provider Nurse Practitioner Women's Health
DX: Z34.90 Encounter for supervision of normal pregnancy, unspecified, unspecified trimester (principal); Z3A.00 Weeks of gestation of pregnancy not specified
CPT/HCPCS: 36415; 85025; 86703; 86780

== ENCOUNTER → 2023-06-16 | Outpatient (CLI) | payer OTHER, SELFPAY ==
--- OUTSIDE RECORDS SUMMARY | 2023-06-16 08:42 | XMS RPT_ITS | CCD ---
Author Name Unknown Address [address] [place] [address] Organization [facility] Care Team Providers Care Telesales Consultant Name Role Phone Teo Urena MD Primary Care Provider [phone] TEO URENA Primary Care Unavailable TEO URENA Primary Care Unavailable Teo Urena MD Primary Care Provider [phone] ROSALINA HO Referring UnavailYOBANI Josue Attending HAYLEE Valencia Primary Care Unavailable HAYLEE DUPONT Primary Care Unavailable ROSALINA HO Attending ROSALINA Epperson Referring Unavailab le Medications Current Medications Medication [...] 08:40-0400 Body temperature 99.81 [degF] Omkar Garcia GLASS CLEANING MACHINE TENDER.FOREIGN EXCHANGE CLERK Work Phone: [facility] 12-05-2022 08:40-0400 Body weight 110.13 kg Omkar Garcia GLASS CLEANING MACHINE TENDER.FOREIGN EXCHANGE CLERK Work Phone: [facility] 12-05-2022 08:40-0400 Diastolic blood pressure 76 mm[Hg] Omkar Garcia GLASS CLEANING MACHINE TENDER.FOREIGN EXCHANGE CLERK Work Phone: [facility] 12-05-2022 08:40-0400 Heart rate 113 /min Omkar Garcia GLASS CLEANING MACHINE TENDER.FOREIGN EXCHANGE CLERK Work Phone: [facility] 12-05-2022 08:40-0400 Respiratory rate 20 /min Omkar Garcia GLASS CLEANING MACHINE TENDER.FOREIGN EXCHANGE CLERK Work Phone: [facility] 12-05-2022 08:40-0400 SaO2% (BldA) [Mass fraction] 98 % Omkar Garcia GLASS CLEANING MACHINE TENDER.FOREIGN EXCHANGE CLERK Work Phone: [facility] 12-05-2022 08:40-0400 Systolic blood pressure 112 mm[Hg] Omkar Garcia GLASS CLEANING MACHINE TENDER.FOREIGN EXCHANGE CLERK Work Phone: [facility] 12-20-2021 10:31-0400 Body temperature 97.5 [degF] Zeny Montes PA-C Work Phone: [facility] 12-20-2021 10:31-0400 Body weight 103.96 kg Zeny Montes PA-C Work Phone: [facility] 12-20-2021 10:31-0400 Diastolic blood pressure 70 mm[Hg] Zeny Athy PA-C Work Phone: [facility] 12-20-2021 10:31-0400 Heart rate 99 /min Zeny Athy PA-C Work Phone: [facility] 12-20-2021 10:31-0400 Respiratory rate 18 /min Zeny Athy PA-C Work Phone: [facility] 12-20-2021 10:31-0400 SaO2% (BldA) [Mass fraction] 98 % Zeny Athy PA-C Work Phone: [facility] 12-20-2021 10:31-0400 Systolic blood pressure 130 mm[Hg] Zeny Athy PA-C Work Phone: [facility] Encounters Encounter Date Encounter Type Care Provider Facility Start: 05-09-2023 ambulatory HAYLEE DUPONT [facility] Start: 04-21-2023 End: 04-21-2023 ambulatory ROSALINA HO [facility] Start: 12-05-2022 End: 12-05-2022 ambulatory TEO URENA Facility:[facility] Start: 12-05-2022 End: 12-05-2022 Patient encounter procedure Omkar Garcia APRN.CNP Work Phone: [facility] Procedures Date Procedure Procedure Detail Performing Clinician Start: 12-05-2022 STREP A MOLECULAR (POC) Linda ANDERSON Work Phone: Start: 12-20-2021 STREP A MOLECULAR (POC) Zeny Montes PA-C Work Phone: Start: 01-27-2016 Adult depression screening assessment Zeny Montes PA-C Work Phone: Plan of Treatment Date Care Activity Detail Author Start: 01-21-2023 Influenza vaccination INFLUENZA (#1) [facility] Start: 05-23-2022 DEPRESSION ASSESSMENT DEPRESSION ASSESSMENT [facility] Start: 09-01-2022 Influenza vaccination INFLUENZA (#1) [facility] Start: 12-20-2021 End: 01-03-2022 SARS-CoV-2 (COVID-19) RNA [Presence] in Respiratory specimen by TAQUERIA with probe detection 2019 CORONAVIRUS Microbiology Routine Viral URI Expected: 12/20/2021, Expires: 01/03/2022 [facility] Work Phone: Immunizations Immunization Date Immunization Notes Care Provider Fa cilirachana 09-21-1999 Chicken Pox (disease) Zeny bledsoe PA-C Work Phone: [facility] Work Phone: 07-24-1996 diphtheria, tetanus toxoids and acellular pertussis vaccine Zeny Montes PA-C Work Phone: [facility] Work Phone: 07-24-1996 measles, mumps and rubella virus vaccine Zeny Montes PA-C Work Phone: [facility] Work Phone: 07-24-1996 trivalent poliovirus vaccine, live, oral Zeny Montes PA-C Work Phone: [facility] Work Phone: 04-23-1993 diphtheria, tetanus toxoids and pertussis vaccine Zeny Montes PA-C Work Phone: [facility] Work Phone: 04-23-1993 trivalent poliovirus vaccine, live, oral Zeny Montes PA-C Work Phone: [facility] Work Phone: 12-25-1992 haemophilus influenz ae type b vaccine, HbOC conjugate Zeny Montes PA-C Work Phone: [facility] Work Phone: 12-25-1992 measles, mumps and rubella virus vaccine Zeny Athy PA-C Work Phone: [facility] Work Phone: 04-10-1992 diphtheria, tetanus toxoids and pertussis vaccine Zeny Athy PA-C Work Phone: [facility] Work Phone: 04-10-1992 haemophilus influenz ae type b vaccine, HbOC conjugate Zeny Athy PA-C Work Phone: [facility] Work Phone: 02-07-1992 diphtheria, tetanus toxoids and pertussis vaccine Zeny Athy PA-C Work Phone: [facility] Work Phone: 02-07-1992 haemophilus influenz ae type b vaccine, HbOC conjugate Zeny Athy PA-C Work Phone: [facility] Work Phone: 02-07-1992 trivalent poliovirus vaccine, live, oral Zeny Athy PA-C Work Phone: [facility] Work Phone: 1991 diphtheria, tetanus toxoids and pertussis vaccine Zeny Athy PA-C Work Phone: [facility] Work Phone: 1991 haemophilus influenz ae type b vaccine, HbOC conjugate Zeny Athy PA-C Work Phone: [facility] Work Phone: 1991 trivalent poliovirus vaccine, live, oral Zeny Athy PA-C Work Phone: [facility] Work Phone: Payers Date Payer Category Payer Private Health Insurance [employer] PPO [id number] 2021-Present [phone] [address] [place] [address] [facility] [id number] 2021 Private Health Insurance [id number] 2021 Private Health Insurance [employer] PPO [id number] 2021-Present [phone] [address] [place] [address] PPO [id number] 1991 Unknown [id number] 1991 Unknown [id number] Social History Date Type Detail Facility Start: 12-05-2022 [facility] Start: 12-20-2021 End: 12-05-2022 Alcohol intake Current drinker of alcohol (finding) [facility] Start: 11-07-2015 History SDOH Alcohol Comment rare [facility] Start: 1990 Sex Assigned At Not on file [facility] Start: 12-05-2022 Tobacco use and exposure Smoke less tobacco non-user [facility] Start: 12-05-2022 History of Social function [facility] Start: 12-05-2022 Tobacco use panel [facility] Progress note 12-05-2022 Note Date & Type Note Facility 12-05-2022 Note HNO ID: [id number] Author: Omkar Garcia APRN.FOREIGN EXCHANGE CLERK Service: ? Author Type: Nurse Practitioner Type: Progress Notes Filed: 12/05/2022 9:58 AM Note Text: Subjective HPI HPI Gelacio Orlando is a [...] PREDNISONE 20 MG TABLET Omkar Garcia APRN.CNP [facility] History of Present illness Narrative 12-05-2022 Omkar [...] Omkar Garcia APRN.SVETLANA documented in this encounter [facility] Note 12-21-2021 Telephone Encounter - Kelly Valladares MA - 12/21/2021 8:30 AM EDTTelephone Encounter - Aletha Selby APRN.SVETLANA - 12/21/2021 7:13 AM EDT Note Date & Type Note Facility 12-21-2021 Miscellaneous Notes Notified pt of results. Pt verbalized understanding. Kelly Valladares MA Negative for covid please notify thank you documented in this encounter [facility] Progress note 12-20-2021 Note Date & Type Note Facility 12-20-2021 Note HNO ID: [id number] Author: Zeny Montes PA-C Service: ? Author Type: Physician Funeral Service Apprentice Type: Progress Notes Filed: 12/20/2021 1:14 PM Note Text: This note was created using [email or web address]. Subjective Gelacio Orlando is a 31 year [...] symptoms - 2019 CORONAVIRUS Zeny Montes PA-C [facility] History of Present illness Narrative 12-20-2021 Zeny Montes PA-C - 12/20/2021 1:11 PM EDT Note Date & Type Note Facility 12-20-2021 History of Presen t illness Narrative This note was created using [employer]. Subjective Gelacio Orlando is a 31 year [...] Zeny Montes PA-C documented in this encounter [facility] Evaluation note Note Date & Type Note Facility documented in this encounter [facility] Evaluation note Note Date & Type Note Facility documented in this encounter [facility] Health Concerns Infection Onset Date Last Indicated [...] or prosecute any alcohol or drug abuse patient.[facility] the event this information is protected by the Federal Confidentiality of Alcohol and Drug Abuse Patient Records regulations: The Federal rules restrict any use of the information to criminally investigate or prosecute any alcohol or drug abuse patient.[facility] the event this information is protected by the Federal Confidentiality of Alcohol and Drug Abuse Patient Records regulations: The Federal rules restrict any use of the information to criminally investigate or prosecute any alcohol or drug abuse patient.[facility] Reason for Visit (unrecogniz ed section and content) Reason Comments Results Reason Comments Sore Throat X 2 days Care Teams (unrecognized sec tion and content) Telesales Consultant Relationship Specialty Start Date End Date Teo Urena MD [address] [facility] [address] [place] [address] PCP - General Internal Medicine 12/20/21 Telesales Consultant Relationship Specialty Start Date End Date Teo Urena MD [address] [facility] [address] [place] [address] PCP - General Internal Medicine 12/20/21 INFORMATION SOURCE (unrecogn ized section and content) DATE CREATED AUTHOR AUTHOR'S ORGANIZ ATION 05/10/2023 [facility] FOR RECORDS PERTAINING TO PATIENTS WHO [...] BE BASED ON THE PRIMARY CLINICAL RECORDS. [employer] [facility]. provides no warranty or guarantee of the accuracy or completeness of information in this document.
[2023-06-16 09:48] LABS: Glucose 94 mg/dL (74-106)
== END | disposition home or self-care (01) ==
LOC: LAB 08:21
PROVIDERS: PCP Family Medicine; Referring Provider Internal Medicine Endocrinology, Diabetes & Metabolism; Visit Provider Internal Medicine Endocrinology, Diabetes & Metabolism
DX: O24.410 Gestational diabetes mellitus in pregnancy, diet controlled (principal); Z3A.00 Weeks of gestation of pregnancy not specified
CPT/HCPCS: 36415; 82947

== ENCOUNTER → 2023-07-18 | Outpatient (CLI) | payer OTHER, SELFPAY ==
--- NOTE | 2023-07-18 16:12 | US_ITS ---
STUDY: SECOND AND THIRD TRIMESTER OBSTETRICAL ULTRASOUND - LIMITED REASON FOR EXAM: Female, 32 years old MANUEL LMP: December 05, 2022 PRIOR ULTRASOUND: January 25, 2023 TECHNIQUE: Transabdominal TECHNICAL QUALITY: Adequate. FINDINGS: There is a single intrauterine fetus. The fetus is in a cephalic presentation. There is demonstrated cardiac activity with a heart rate of 153 bpm. There is a normal amniotic fluid volume. The largest amniotic fluid pocket measures 5.77 cm. The amniotic fluid index (MANUEL) is 15.69 cm. The placenta is anterior in location and is not low lying. There are Grade 1 placental changes. The cervix measures 3.32 cm in length and is closed. US/OB Limited (No Biometrics) IMPRESSION: Single live intrauterine with a within normal limits amniotic fluid index of 15.69 cm. Electronically Signed: Traci Castellanos MD at 19:34 EST ,
== END | disposition home or self-care (01) ==
PROVIDERS: PCP Family Medicine; Referring Provider Obstetrics & Gynecology; Visit Provider Obstetrics & Gynecology
DX: O09.90 Supervision of high risk pregnancy, unspecified, unspecified trimester (principal); Z3A.00 Weeks of gestation of pregnancy not specified
CPT/HCPCS: 76815

== ENCOUNTER → 2023-07-20 | Outpatient (CLI) | payer OTHER, SELFPAY ==
--- NOTE | 2023-07-20 12:42 | US_ITS ---
STUDY: SECOND AND THIRD TRIMESTER OBSTETRICAL ULTRASOUND - LIMITED REASON FOR EXAM: Female, 32 years old well being -- 32 Weeks LMP: 12/05/2022 PRIOR ULTRASOUND: 2 days prior, 07/18/2023. TECHNIQUE: Transabdominal TECHNICAL QUALITY: Adequate. FINDINGS: There is a single intrauterine fetus. The fetus is in a cephalic presentation. There is demonstrated cardiac activity with a heart rate of 140 bpm. There is a normal amniotic fluid volume. The largest amniotic fluid pocket measures 4.8 cm. The amniotic fluid index (MANUEL) is 13.6 cm. The placenta is anterior in location and is not low lying. There are Grade 1 placental changes. The cervix is not visualized. BIOMETRY: BPD: 9.0: 36 weeks, 3 days HC: 32.3: 36 weeks, 3 days AC: 29.3: 33 weeks, 2 days FL: 6.2: 32 weeks, 2 days Age by LMP: 32 weeks, 3 days. AFUA by LMP: 09/11/2023. age by prior US: 32 weeks, 2 days. AFUA by prior US: 09/12/2023. age by current US: 34 weeks, 6 days. AFUA by current US: 08/25/2023. Estimated weight: 2232 grams, +/- 335 grams, 76 percentile. Gender: US/OB Limited With Biometrics IMPRESSION: No significant change since 2 days prior. Single live fetus in a vertex presentation. survey not performed on this exam. Placenta is grade 1 and is not low-lying. Cervix is closed. age by current US: 34 weeks, 6 days. AFUA by current US: 08/25/2023. Estimated weight: 2232 grams, +/- 335 grams, 76 percentile. Electronically Signed: Nitesh Lee MD at 19:27 EST ,
--- OUTSIDE RECORDS SUMMARY | 2023-07-20 22:06 | XMS RPT_ITS | CCD ---
Author Name Unknown Address [address] [place] [address] Organization [facility] Care Team Providers Care Wastewater Design Engineer Name Role Phone Teo Urena MD Primary Care Provider [phone] TEO URENA Primary Care Unavailable TEO URENA Primary Care Unavailable Teo Urena MD Primary Care Provider [phone] ROSALINA HO Referring UnavailYOBANI Josue Attending HAYLEE [...] 08:40-0400 Body temperature 99.81 [degF] Omkar Garcia SPEAKER WIRER.OIL MIXER Work Phone: [facility] 12-05-2022 08:40-0400 Body weight 110.13 kg Omkar Garcia SPEAKER WIRER.OIL MIXER Work Phone: [facility] 12-05-2022 08:40-0400 Diastolic blood pressure 76 mm[Hg] Omkar Garcia SPEAKER WIRER.OIL MIXER Work Phone: [facility] 12-05-2022 08:40-0400 Heart rate 113 /min Omkar Garcia SPEAKER WIRER.OIL MIXER Work Phone: [facility] 12-05-2022 08:40-0400 Respiratory rate 20 /min Omkar Garcia SPEAKER WIRER.OIL MIXER Work Phone: [facility] 12-05-2022 08:40-0400 SaO2% (BldA) [Mass fraction] 98 % Omkar Garcia SPEAKER WIRER.OIL MIXER Work Phone: [facility] 12-05-2022 08:40-0400 Systolic blood pressure 112 mm[Hg] Omkar Garcia SPEAKER WIRER.OIL MIXER Work Phone: [facility] 12-20-2021 10:31-0400 Body temperature 97.5 [degF] Zeny Montes PA-C Work Phone: [facility] 12-20-2021 10:31-0400 Body weight 103.96 kg Zeny Montes PA-C Work Phone: [facility] 12-20-2021 10:31-0400 Diastolic blood pressure 70 mm[Hg] Zeny Athy PA-C Work Phone: [facility] 12-20-2021 10:31-0400 Heart rate 99 /min Zeny Athy PA-C Work Phone: [facility] 12-20-2021 10:31-0400 Respiratory rate 18 /min Zeny Athy PA-C Work Phone: [facility] 12-20-2021 10:31-0400 SaO2% (BldA) [Mass fraction] 98 % Zeny Athy PA-C Work Phone: [facility] 12-20-2021 10:31-0400 Systolic blood pressure 130 mm[Hg] Zeny Athy PA-C Work Phone: [facility] Encounters Encounter Date Encounter Type Care Provider Facility Start: 05-09-2023 ambulatory HAYLEE DUPONT [facility] Start: 04-21-2023 End: 04-21-2023 ambulatory ROSALINA HO [facility] Start: 12-05-2022 End: 12-05-2022 ambulatory TEO URENA Facility:[facility] Start: 12-05-2022 End: 12-05-2022 Patient encounter procedure Omkar Garcia APRN.CNP Work Phone: [facility] Procedures Date Procedure Procedure Detail Performing Clinician Start: 12-05-2022 STREP A MOLECULAR (POC) Linda ANDERSON Work Phone: Start: 12-20-2021 STREP A MOLECULAR (POC) Zeny Montes PA-C Work Phone: Start: 01-27-2016 Adult depression screening assessment Zeny Montes PA-C Work Phone: Plan of Treatment Date Care Activity Detail Author Start: 01-21-2023 Influenza vaccination INFLUENZA (#1) [facility] Start: 05-23-2022 DEPRESSION ASSESSMENT DEPRESSION ASSESSMENT [facility] Start: 09-01-2022 Influenza vaccination INFLUENZA (#1) [facility] Start: 12-20-2021 End: 01-03-2022 SARS-CoV-2 (COVID-19) RNA [Presence] in Respiratory specimen by TAQUERIA with probe detection 2019 CORONAVIRUS Microbiology Routine Viral URI Expected: 12/20/2021, Expires: 01/03/2022 [facility] Work Phone: Immunizations Immunization Date Immunization Notes Care Provider Fa c[place] 09-21-1999 Chicken Pox (disease) Zeny bledsoe PA-C Work Phone: [facility] Work Phone: 07-24-1996 diphtheria, tetanus toxoids and acellular pertussis vaccine Zeny Montes PA-C Work Phone: [facility] Work Phone: 07-24-1996 measles, mumps and rubella virus vaccine Zeny Montes PA-C Work Phone: [facility] Work Phone: 07-24-1996 trivalent poliovirus vaccine, live, oral Zeny Montes PA-C Work Phone: [facility] Work Phone: 04-23-1993 diphtheria, tetanus toxoids and pertussis vaccine Zeny Montes PA-C Work Phone: [facility] Work Phone: 04-23-1993 trivalent poliovirus vaccine, live, oral Zeny Montes PA-C Work Phone: [facility] Work Phone: 12-25-1992 haemophilus influenz ae type b vaccine, HbOC conjugate Zeny Montes PA-C Work Phone: [facility] Work Phone: 12-25-1992 measles, mumps and rubella virus vaccine Zeny Athy PA-C Work Phone: [facility] Work Phone: 04-10-1992 diphtheria, tetanus toxoids and pertussis vaccine Zeny Athy PA-C Work Phone: [facility] Work Phone: 04-10-1992 haemophilus influenz ae type b vaccine, HbOC conjugate Zeny Athy PA-C Work Phone: [facility] Work Phone: 02-07-1992 diphtheria, tetanus toxoids and pertussis vaccine Zeny Athy PA-C Work Phone: [facility] Work Phone: 02-07-1992 haemophilus influenz ae type b vaccine, HbOC conjugate Zeny Athy PA-C Work Phone: [facility] Work Phone: 02-07-1992 trivalent poliovirus vaccine, live, oral Zeny Athy PA-C Work Phone: [facility] Work Phone: 1990 diphtheria, tetanus toxoids and pertussis vaccine Zeny Athy PA-C Work Phone: [facility] Work Phone: 1990 haemophilus influenz ae type b vaccine, HbOC conjugate Zeny Athy PA-C Work Phone: [facility] Work Phone: 1990 trivalent poliovirus vaccine, live, oral Zeny Athy PA-C Work Phone: [facility] Work Phone: Payers Date Payer Category Payer Private Health Insurance [employer] PPO [id number] 2021-Present [phone] [address] [place] [address] [facility] [id number] 2021 Private Health Insurance [id number] 2021 Private Health Insurance [employer] PPO [id number] 2021-Present [phone] [address] [place] [address] PPO [id number] 1990 Unknown [id number] 1990 Unknown [id number] Social History Date Type Detail Facility Start: 12-05-[address] [facility] Start: 12-20-2021 End: 12-05-2022 Alcohol intake Current drinker of alcohol (finding) [facility] Start: 11-07-2015 History SDOH Alcohol Comment rare [facility] Start: 1990 Sex Assigned At Not on file [facility] Start: 12-05-2022 Tobacco use and exposure Smoke less tobacco non-user [facility] Start: 12-05-2022 History of Social function [facility] Start: 12-05-2022 Tobacco use panel [facility] Progress note 12-05-2022 Note Date & Type Note Facility 12-05-2022 Note HNO ID: [id number] Author: Omkar Garcia APRN.OIL MIXER Service: ? Author Type: Nurse Practitioner Type: [...] PREDNISONE 20 MG TABLET Omkar Garcia APRN.CNP [facility] History of Present illness Narrative 12-05-2022 Omkar [...] Omkar Garcia APRN.SVETLANA documented in this encounter [facility] Note 12-21-2021 Telephone Encounter - Kelly Valladares MA - 12/21/2021 8:30 AM EDTTelephone Encounter - Alteha Selby APRN.SVETLANA - 12/21/2021 7:13 AM EDT Note Date & Type Note Facility 12-21-2021 Miscellaneous Notes Notified pt of results. Pt verbalized understanding. Kelly Valladares MA Negative for covid please notify thank you documented in this encounter [facility] Progress note 12-20-2021 Note Date & Type Note Facility 12-20-2021 Note HNO ID: [id number] Author: Zeny Montes PA-C Service: ? Author Type: Physician Slubber Runner Type: Progress Notes Filed: 12/20/2021 1:14 PM Note Text: This note was created using [employer]. Subjective Gelacio Orlando is a 31 [...] symptoms - 2019 CORONAVIRUS Zeny Montes PA-C [facility] History of Present illness Narrative 12-20-2021 Zeny Montes PA-C - 12/20/2021 1:11 PM EDT Note Date & Type Note Facility 12-20-2021 History of Presen t illness Narrative This note was created using [employer]. Subjective Gelacio Orlando is a 31 year [...] Zeny Montes PA-C documented in this encounter [facility] Evaluation note Note Date & Type Note Facility documented in this encounter [facility] Evaluation note Note Date & Type Note Facility documented in this encounter [facility] Health Concerns Infection Onset Date Last [...] or prosecute any alcohol or drug abuse patient.[facility] the event this information is protected by the Federal Confidentiality of Alcohol and Drug Abuse Patient Records regulations: The Federal rules restrict any use of the information to criminally investigate or prosecute any alcohol or drug abuse patient.[facility] the event this information is protected by the Federal Confidentiality of Alcohol and Drug Abuse Patient Records regulations: The Federal rules restrict any use of the information to criminally investigate or prosecute any alcohol or drug abuse patient.[facility] Reason for Visit (unrecogniz ed section and content) Reason Comments Results Reason Comments Sore Throat X 2 days Care Teams (unrecognized sec tion and content) Wastewater Design Engineer Relationship Specialty Start Date End Date Teo Urena MD [address] [facility] [address] [place] [address] PCP - General Internal Medicine 12/20/21 Wastewater Design Engineer Relationship Specialty Start Date End Date Teo Urena MD [address] [facility] [address] [place] [address] PCP - General Internal Medicine 12/20/21 INFORMATION SOURCE (unrecogn ized section and content) DATE CREATED AUTHOR AUTHOR'S ORGANIZ ATION 05/10/2023 [facility] FOR RECORDS PERTAINING TO PATIENTS WHO ARE [...] BE BASED ON THE PRIMARY CLINICAL RECORDS. [facility]. provides no warranty or guarantee of the accuracy or completeness of information in this document.
== END | disposition home or self-care (01) ==
LOC: US 12:42
PROVIDERS: PCP Family Medicine; Referring Provider Nurse Practitioner Women's Health; Visit Provider Nurse Practitioner Women's Health
DX: O24.419 Gestational diabetes mellitus in pregnancy, unspecified control (principal); Z3A.32 32 weeks gestation of pregnancy
CPT/HCPCS: 76816

== ENCOUNTER 2023-08-07 09:19 | Inpatient (IN) | payer OTHER, SELFPAY ==
[2023-08-07] VITALS (57 sets, daily range): BP systolic 76–165; BP diastolic 45–105; PULSE 80–122; RESP 13–19; TEMP 36.1–37.3; O2SAT 98–100; BMI 37.8
--- NOTE | 2023-08-07 | FALS_PTH ---
PATIENT: GELACIO FERRER LOC: WP U#:[id number] AGE/SX: 32/F ROOM: WP007 RE08/07/[address]: Dr. Chuyita Langston DO : 1990 BED: 1 DIS: 08/08/2023 SPEC #: [id number] RECD: 08/08/23 10:34 STATUS: CHERIE BOWDEN #: [id number] KARIME: 08/07/23 00:[address]: Chuyita Langston DEPT: SURGICAL PATHOLOGY RECD BY: Adrian Santo ENTERED: 08/08/23 10:35 SP TYPE: FALL TUBES OTHR DR: Mariana Guerrero DO Tissues: Fallopian tube Procedures: Surgery Specimen Level IV HEADER OPERATION: Tubal ligation PRE-OP DIAGNOSIS: Sterlization TISSUE SUBMITTED: Fallopian tubes MICROSCOPIC DIAGNOSIS Right and left fallopian tubes, bilateral salpingectomies: Complete cross-sections of two fallopian tubes. Benign paratubal cysts. AM:mr 08/09/2023 MICROSCOPIC DESCRIPTION Slides are reviewed. GROSS DESCRIPTION Received in fixative is one container labeled with the patient's name and designated bilateral fallopian tubes. The specimen consists of bilateral fallopian tubes, right fallopian tube with suture. Right fallopian tube measures 5.5 cm in length and 0.5 cm in diameter. The left fallopian tube measures 10.0cm in length and 0.5 cm in diameter. A paratubal cyst is measuring 1.0cm in greatest dimension. Sections reveal unremarkable cut surfaces. Dinkey Skinner sections are submitted in two cassettes with each cassette containing one fallopian tube. / SJ: 08/08/23 TC:5 CPT: 83551 x2
[2023-08-07 09:13] LABS: Hematocrit 32.8 % (37-47); Hemoglobin 11.1 g/dL (12.0-15.0); Mean Corp Hgb Conc 33.8 g/dL (32-36); Mean Corpuscular Hgb 28.7 pg (27.0-32.0); Mean Corpuscular Volume 84.8 fL (81-99); Platelet Count 336 K/mm3 (150-450); RBC Distribution Width CV 14.1 % (11.6-14.6); Red Blood Count 3.87 M/mm3 (4.2-5.4); White Blood Count 11.8 K/mm3 (4.4-11.0)
[2023-08-07 09:25] LABS: Protein:Creat Ratio 313 mg/g CRE (0-200)
[2023-08-07 09:27] LABS: AST(SGOT) 16 U/L (15-37); Alanine Aminotransfer ALT/SGPT 19 U/L (13-56); Creatinine, Serum 0.63 mg/dL (0.55-1.02); EST Glomerular Filtration Rate 116 mL/min (>60); Est Glom Filt Rate - Afr Amer 141 mL/min (>60); Estimated Creatinine Clearance 170.63 ml/min; Uric Acid 4.9 mg/dL (2.6-6.0)
[2023-08-07] MEDS: Lactated Ringers 1,000 ML 999 ML IV (09:40)
[2023-08-07] MEDS: Magnesium Sulfate 4gm/100mL 4 GM/100 ML IV.SOLN. IV (09:40)
[2023-08-07] MEDS: Labetalol (Prefilled) 20 MG/4 ML IV (09:48)
[2023-08-07] MEDS: Acetaminophen 500 MG Tablet 1000 MG PO ×3 (09:58→21:56)
[2023-08-07] MEDS: Sodium Citrate/Citric Acid 30 ML UDC PO (09:59)
--- NOTE | 2023-08-07 10:01 | HP.PCM.OB_ITS ---
HPI - General General Date of Admission: 08/07/23 HPI Narrative GELACIO FERRER, is a 32 y/o @ 35 weeks 0 days who presents to L&D with severe range blood pressures, headache and visual changes. She has gestational diabetes, a history of pre-eclampsia with last , and history of prior section for repeat , Maternal Data Information AFUA Calculator Estimated Delivery Date Method Current WG Current Estimate 09/11/23 LMP (Certain) 35w 0d Other Estimates 09/09/23 Ultrasound #2 35w 2d PFSH PFSH Medical History Anemia Anxiety Gestational diabetes High cholesterol History of echocardiogram History of gestational hypertension History of steroid therapy Hyperlipidemia Incomplete Non-smoker Obesity (BMI 30-39.9) Home Medications [id number] 1 mg tablet 1 tab PO QHS 10/28/22 [History Last Taken 10/28/22] citalopram 40 mg tablet 40 mg PO QHS 10/29/22 [History Last Taken 10/28/22] blood sugar diagnostic (Blood Glucose Test strips) #120 ea 03/01/23 [Rx Last Taken Unknown] blood-glucose meter #1 ea 03/01/23 [Rx Last Taken Unknown] lancets #200 ea 03/01/23 [Rx Last Taken Unknown] pen needle, diabetic 32 gauge x 5/32 (BD Ultra-Fine Leslee Pen Needle) #50 ea 04/19/23 [Rx Last Taken Unknown] insulin aspart U-100 100 unit/mL (3 mL) subcutaneous pen (Novolog FlexPen U-100 Insulin aspart) 6 unit subcut QACDINNER 04/22/23 [History Last Taken Unknown] albuterol sulfate 90 mcg/actuation aerosol inhaler 2 inh inhalation Q4H PRN shortness of breath or wheezing #8.5 grams 04/30/23 [Rx Last Taken Unknown] famotidine 20 mg tablet (Pepcid) 20 mg PO BID #60 tabs 07/21/23 [Rx Last Taken Unknown] insulin degludec 100 unit/mL (3 mL) subcutaneous pen (Tresiba FlexTouch U-100 insulin) 22 unit (0.22 mL) subcut QHS #6 mL 07/21/23 [Rx Last Taken Unknown] Allergy/AdvReac Type Severity Reaction Status Date / Time No Known Allergies Allergy Verified 08/07/23 09:13 Family History Other Breast cancer Diabetes Hypertension Thyroid disorder Surgical History H/O dilation and curettage History of wisdom tooth extraction, class II edentulism [place] teeth extracted Social History adopted: No household members: spouse and children housing: house number of children: 1 current occupational status: employed current occupation: [employer] pets and animals: Yes (Not managing litterbox ) pets and animals: cat(s) history of recent travel: Yes () out of state: Yes out of country: No sexually active: Yes Smoking Status: Never smoker second hand exposure: No alcohol intake: never substance use type: does not use well-balanced diet: daily or most days caffeine: Yes Type: carbonated beverages Number of servings: 1 and coffee Number of servings: 2 eating out: 1-3 times/week during the past year weight has: remained stable what type of physical activity do you participate in: walking frequency: 3-4 times per week duration: 30-45 minutes/day melina/synagogue: Rastafari seatbelt use: always do you feel safe at home: Yes additional social history: Jonah- [employer] History 3 Elective abortions Hx Para 1 Spontaneous abortions 1 Hx # Term Pregnancies Ectopic pregnancies Hx # Pregnancies Multiple births # of living children 1 Past Pregnancies Del. Date Name GA/Weeks Outcome Route Bth Weight Gen Labor Lgth Anesthesia Del [facility] Provider FOB 02/17/20 Elliott 38 live - full term 7lbs 4oz Female spinal [facility] Jonah Delivery Date: 02/17/20 Last Updated by: Aminata Paredes prolonged induction; hemorrhage at delivery Visit Details Expected Delivery Route/Plan RLTCS with JV Labor Preferences- CB/BF classes: no labor support person: Jonah labor intervention preferences: [] pain management options preferred: c section cut cord/dad catch: [] : undecided PP control planned: discussed: wants BS with CS discussed possible routes of delivery and associated risks: [] special requests: [] Plans Covid status: [] Flu vaccine: no Tdap vaccine: given Rhogam: na LARC form signed: yes movement and labor precautions reviewed. Problem list reviewed and updated with the most current plan of care details and appropriate orders placed. Relevant counseling for the gestational age provided. Continue routine care and follow up unless otherwise noted in visit notes/problem list details OB Flowsheet Initial Weight: 247 lb Date -?-?-?-?-?-?-?-?-?-?-?-?- EGA Weight BP Urine Prot -?-?-?-?-?-?-?-?-?-?-?-?- Glucose FHR FuHt Pres Dilation -?-?-?-?-?-?-?-?-?-?-?-?- Effaced St Visit Note 02/02/23 -?-?-?-?-?-?-?-?-?-?-?-?- 8w 3d 247 lb 4 oz (+4 oz) 133/79 -?-?-?-?-?-?-?-?-?-?-?-?- 168 -?-?-?-?-?-?-?-?-?-?-?-?- JV- CRL consiste nt with LMP and prior ultrasound done at the hospital. desires NIPT. early gct ordered. ok to rto in 2 weeks for heart beat check due to h/o miscarriage. 02/21/23 -?-?-?-?-?-?-?-?-?-?-?-?- 11w 1d 244 lb (-3 lb) 130/85 Negative -?-?-?-?-?-?-?-?-?-?-?-?- Negative 163 -?-?-?-?-?-?-?-?-?-?-?-?- LC- no vb/crampi ng. +FHT. will keep appt on tuesday. repeat nipt ordered per lab 02/28/23 -?-?-?-?-?-?-?-?-?-?-?-?- 12w 1d 245 lb 2 oz (-1 lb 14 oz) 138/78 Negative -?-?-?-?-?-?-?-?-?-?-?-?- Negative 160 -?-?-?-?-?-?-?-?-?-?-?-?- JV- pt failed he r 3 hr and is having fasting levels in the 110's-130's and elevated 2 hr pp. sending to Dr. garcia. 03/16/23 -?--?-?-?-?-?-?-?-?-?-?-?- 14w 3d 243 lb 6 oz (-3 lb 10 oz) 120/84 Negative -?-?-?-?-?-?-?-?-?-?-?-?- Negative 160 -?-?-?-?-?-?-?-?-?-?-?-?- MH-NO VB. Nausea resolved. Is checking glucose qid and WNL range. Saw dietitian. Will see Dr Garcia next week. Brief US confirm live IUP and FHT. 04/11/23 -?-?-?-?--?-?-?-?-?-?-?-?- 18w 1d 239 lb 2 oz (-7 lb 14 oz) 144/91 Negative -?-?-?-?-?-?-?-?-?-?-?-?- Negative 148 -?-?-?-?-?-?-?-?-?-?-?-?- JV- planning to start home bp monitoring and will order pih labs and start baby asa. currently glucose levels are good with one high a week. diet controlled still at this point. 04/22/23 -?-?-?-?-?-?-?-?-?-?-?-?- 19w 5d 239 lb 2 oz (-7 lb 14 oz) 119/81 Negative -?-?-?-?-?-?-?-?-?-?-?-?- Negative 145 -?-?-?-?-?-?-?-?-?-?-?-?- JV- pt now on in sulin 6 r at dinner. start nsts at 32 weeks, deliver at 39 weeks. 12/22/23 -?-?-?-?-?-?-?-?-?-?-?-?- 22w 5d 240 lb 4 oz (-6 lb 12 oz) 119/75 Negative -?-?-?-?-?-?-?-?-?-?-?-?- Negative 140 -?-?-?-?-?-?-?-?-?-?-?-?- JV- still on 6 r at dinner. glucose levels stable. anatomy scan normal. 06/08/23 -?-?-?-?-?-?-?-?-?-?-?-?- 26w 3d 238 lb 8 oz (-8 lb 8 oz) 122/78 Negative -?-?-?-?-?-?-?-?-?-?-?-?- Negative 148 27 -?-?-?-?-?-?-?-?-?-?-?-?- MH-No VB, LOF. G javier FM. Has not need insulin since due to diet change, reports wkly to Dr Garcia. CS 09/04-wants BS also. Larc. Labs drawn 06/22/23 -?-?-?-?-?-?-?-?-?-?-?-?- 28w 3d 243 lb (-4 lb) 133/86 Negative -?-?-?-?-?-?-?-?-?-?--?-?- Negative 140 -?-?-?-?-?-?-?-?-?-?-?-?- JV- nst reactive for 28 weeks. Normal glucose levels and still not back on insulin. 06/29/23 -?-?-?-?-?-?-?-?-?-?-?-?- 29w 3d 242 lb 6 oz (-4 lb 10 oz) 136/85 Negative -?-?-?-?-?-?-?-?-?-?-?-?- Negative 140 -?-?-?-?-?-?-?-?-?-?--?-?- JV- used insulin for first time since (6 units prior to a high carb meal) glucose levels are normal. JV- used insulin for first t ezar since (6 units prior to a high carb meal) glucose levels are normal. NSt reactive for 29 weeks. 07/04/23 -?-?-?-?-?-?-?-?-?-?-?-?- 30w 1d 243 lb (-4 lb) 128/85 Negative -?-?-?-?-?-?-?-?-?-?-?-?- Negative 140 -?-?-?-?-?-?-?-?-?-?-?-?- JV- nst reactive with 10 x 10 accels. took insulin one time this weekend. postprandial glucose was 101 after she took that. JV- nst reactive with 10 x 1 0 accels. took insulin one time this weekend. postprandial glucose was 101 after she took that. growth scan scheduled later this week. 07/11/23 -?-?-?-?-?-?-?-?-?-?-?-?- 31w 1d 244 lb 6 oz (-2 lb 10 oz) 117/81 Negative -?-?-?-?-?-?-?-?-?-?-?-?- Negative 135 -?-?-?-?-?-?-?-?-?-?-?-?- SM- no vb lof go od fm no regular ctx 07/14/23 -?-?-?-?-?-?-?-?-?-?-?-?- 31w 4d 247 lb (+0 oz) 133/85 Negative -?-?-?-?-?-?-?-?-?-?-?-?- Negative 150 -?-?-?-?-?-?-?-?-?-?-?-?- JV- fasting leve ls are improved with the 12 units of NPH at bedtime. reactive nst. no lof, vag bleeding, or dec fm. 07/18/23 -?-?-?-?-?-?-?-?-?-?-?-?- 32w 1d 246 lb 6 oz (-10 oz) Negative -?-?-?-?-?-?-?-?-?-?-?-?- Negative 130 -?-?-?-?-?-?-?-?-?-?-?-?- JV- SM read NST in my absence- reactive. one small variable decel. 07/21/23 -?-?-?-?-?-?-?-?-?-?-?-?- 32w 4d 244 lb (-3 lb) 133/88 -?-?-?-?-?-?-?-?-?-?-?-?- 140 -?-?-?-?-?-?-?-?-?-?-?-?- SM- reveiwed no vb lof good fm n oregular ctx BS controlled by endocrine. pepcid ordered. 07/26/23 -?-?-?-?-?-?-?-?-?-?-?-?- 33w 2d 245 lb 8 oz (-1 lb 8 oz) 118/82 -?-?-?-?-?-?-?-?-?-?-?-?- 140 -?-?-?-?-?-?-?-?-?-?-?-?- KW- NST only. re active 07/29/23 -?-?-?-?-?-?-?-?-?-?-?-?- 33w 5d 247 lb (+0 oz) 131/85 Negative -?-?-?-?-?-?-?-?-?-?-?-?- Negative 150 -?-?-?-?-?-?-?-?-?-?-?-?- JV- reactive nst . no complaints. + FM. us reviewed. 08/05/23 -?-?-?-?-?-?-?-?-?-?-?-?- 34w 5d 252 lb 2 oz (+5 lb 2 oz) 139/88 Negative -?-?-?-?-?-?-?-?-?-?-?-?- Negative 145 -?-?-?-?-?-?-?-?-?-?-?-?- JV- nst reactive . glucose was again increased to 24 units. no complaints today other than round ligament pain. ROS Constitutional Constitutional: Denies change in weight, fatigue, fever(s), headache(s), poor appetite or weakness Eyes Eyes: Denies blurry vision, change in vision, seeing flashes or spots in vision ENT HEENT: Denies dizziness, headache(s), loss taste/smell or sore throat Cardiovascular Cardiovascular: Denies chest pain, dizziness, dyspnea, irregular heart rhythm, leg edema, palpitations, rapid heart rate or vomiting Respiratory/Chest Respiratory/Chest: Denies chest tightness, cough, dyspnea or breast pain Gastrointestinal Gastrointestinal: Denies abdominal pain, anorexia, constipation, cramping, diarrhea, hemorrhoids, vomiting or weight changes Genitourinary Genitourinary: Denies dysuria, flank pain, genital lesions, genital pain, urinary frequency or urinary urgency Musculoskeletal Musculoskeletal: Denies back pain, difficulty walking, joint pain, limited range of motion, muscle cramps or numbness Integumentary Integumentary: Denies lesions or unusual bruising Neurologic Neurologic: Denies abnormal movements, abnormal speech, dizziness, numbness, seizure-like activity or syncope Psychiatric Psychiatric: Denies anxiety, behavioral changes, change in appetite, change in libido, cognitive impairment, confusion, depression, difficulty concentrating, hallucinations or suicidal thoughts Endocrine Endocrinology: Denies excessive sweating, polydipsia or polyuria Hematologic/Lymphatic Hematologic/Lymphatic: Denies easy bleeding, easy bruising or lymphadenopathy Allergic/Immunologic Allergic/Immunologic: Denies itchy eyes, lip swelling, seasonal rhinorrhea, rhinitis, throat swelling, tongue swelling, eczemia, wheezing or asthma Vital Signs Vital Signs Vital Signs: 08/07/23 09:09 08/07/23 09:09 08/07/23 09:09 Temperature Temperature Source Pulse Rate 105 H Respiratory Rate Blood Pressure 139/96 H BP Systolic 139 BP Diastolic 96 Pulse Ox 99 08/07/23 09:10 08/07/23 09:10 08/07/23 09:10 Temperature Temperature Source Pulse Rate 102 H Respiratory Rate 14 Blood Pressure BP Systolic BP Diastolic Pulse Ox 98 08/07/23 09:15 08/07/23 09:15 08/07/23 09:19 Temperature 99.1 F Temperature Source Oral Pulse Rate Respiratory Rate Blood Pressure 165/105 H BP Systolic 165 BP Diastolic 105 Pulse Ox 08/07/23 09:19 08/07/23 09:31 08/07/23 09:31 Temperature Temperature Source Pulse Rate 122 H 111 H Respiratory Rate Blood Pressure 160/100 H BP Systolic 160 BP Diastolic 100 Pulse Ox 08/07/23 09:39 08/07/23 09:39 08/07/23 09:41 Temperature Temperature Source Pulse Rate 107 H 107 H Respiratory Rate Blood Pressure 152/104 H BP Systolic 152 BP Diastolic 104 Pulse Ox 08/07/23 09:41 08/07/23 09:46 08/07/23 09:46 Temperature Temperature Source Pulse Rate 112 H Respiratory Rate Blood Pressure BP Systolic BP Diastolic Pulse Ox 99 100 08/07/23 09:51 08/07/23 09:51 08/07/23 09:51 Temperature Temperature Source Pulse Rate 95 96 Respiratory Rate Blood Pressure 143/88 H BP Systolic 143 BP Diastolic 88 Pulse Ox 08/07/23 09:51 08/07/23 09:56 08/07/23 09:56 Temperature Temperature Source Pulse Rate 101 H Respiratory Rate Blood Pressure BP Systolic BP Diastolic Pulse Ox 98 100 08/07/23 09:59 08/07/23 09:59 Temperature Temperature Source Pulse Rate 100 Respiratory Rate Blood Pressure 133/79 H BP Systolic 133 BP Diastolic 79 Pulse Ox Weight Weight: 249 lb 1.957 oz Body Mass Index (BMI) 37.8 Physical Exam Const alert, oriented x3, no apparent distress and healthy appearing General Appearance: cooperative; Negative for anxious HEENT normocephalic Face and Sinus: normal facial exam Eyes EOMs intact bilaterally and no scleral icterus General Eye: normal appearance of both eyes Neck full ROM and supple Lymph Lymphatic: no lymphadenopathy noted Chest Chest: abnormal inspection of the chest Resp normal respiratory effort Effort and Inspection: able to speak in complete sentences Cardio regular rate GI soft to palpation and non-tender Inspection: gravid Palpation: soft; Negative for tender Back/Spine no CVA tenderness Extremity normal to inspection, full ROM and no clubbing, cyanosis or edema General Extremity: Negative for calf tenderness or edema Skin Lesions: no lesions Rashes: no rashes Psych mental status grossly normal Labs Labs Labs: Blood Type A POSITIVE Antibody Screen NEGATIVE Hct 32.8 % (37-47) L Hgb 11.1 g/dL (12.0-15.0) L Obstetrics Ultrasound Syphilis Total Ab Non-reactive Rubella IgG Antibody Reactive (Nonreactive) Hep Bs Antigen Non-Reactive (Nonreactive) Hepatitis C Antibody Non-Reactive (Nonreactive) Chlamydia DNA (TAQUERIA) Negative (Negative) N.gonorrhoeae DNA (TAQUERIA) Negative (Negative) HIV 1&2 Antibody Non-Reactive (Nonreactive) Glucose 1 Hr 50 gm 176 mg/dL (70-140) H Gest Glucose Tolerance MG/DL Rhogam given: No Assessment & Plan (1) Modified White class B pregestational diabetes mellitus: COMMENT: sees endocrine. insulin. growth at 36, 2x weekly nsts, deliver at 39 (2) History of hemorrhage, currently : COMMENT: 1000cc EMB at c section:cytotec, hemabate, methergine (3) Contraception management: QUALIFIERS: Contraceptive encounter type: other general counseling and advice Qualified Code(s): Z30.09 - Encounter for other general counseling and advice on contraception COMMENT: wants bilat salping. with CS on 09/05/23 (4) History of section: COMMENT: Rpt planned 09/05/23 0730 JV (5) Segmental and somatic dysfunction of thoracic region: (6) Segmental and somatic dysfunction of lumbar region: (7) Back pain: QUALIFIERS: Back pain location: low back pain Chronicity: acute Back pain laterality: left Sciatica presence: with sciatica Sciatica laterality: sciatica of left side Qualified Code(s): M54.42 - Lumbago with sciatica, left side (8) Segmental and somatic dysfunction of sacral region: (9) History of pre-eclampsia in prior , currently : COMMENT: baseline labs and prot: cr ordered 04/11/23 for spike in bp on this day. (10) Seasonal allergies: (11) Supervision of high-risk : QUALIFIERS: Trimester: second trimester Qualified Code(s): O09.92 - Supervision of high risk , unspecified, second trimester COMMENT: [id number], AFUA 09/10/22 PC Luis Jonah (12) : QUALIFIERS: Weeks of gestation: 34 weeks Qualified Code(s): Z3A.34 - 34 weeks gestation of COMMENT: nl nipt declined ntd and carrier testing. NIPT low risk. (13) H/O miscarriage, currently : (14) Anxiety and depression: COMMENT: celexa. on zoloft in past. counseling encouraged (15) Obesity (BMI 30-39.9): (16) Hyperlipidemia: QUALIFIERS: Hyperlipidemia type: mixed hyperlipidemia Qualified Code(s): E78.2 - Mixed hyperlipidemia (17) Severe pre-eclampsia: PLAN: Plan due to severe blood pressure range and severe features the plan is for section today -start 4 gram bolus of magnesium sulfate + hypertensive protocol. pt had a 160's/100 bp x 2 while here - 2 grams ancef for abx prophylaxis. After discussing the patient's diagnosis and treatment plan options, patient wishes to proceed with surgical management. I have discussed with the patient the risks, benefits, and alternatives of the procedure which include but are not limited to risks of anesthesia, bleeding, infection, possible damage to bowel, bladder, or surrounding vasculature which could lead to additional surgery to evaluate any complications. Patient agrees to procedure and wishes to proceed.
[2023-08-07] MEDS: Magnesium Sulfate 20 GM/500 ML BAG IV (10:11)
[2023-08-07] MEDS: Cefazolin 2 GM in 0.9% Normal Saline (100mL Bag) 100 ML IV (10:21)
[2023-08-07 10:45] LABS: Syphilis Antibodies Non-reactive
--- NOTE | 2023-08-07 11:43 | OP.PCM_ITS ---
Assessment & Plan (1) Severe pre-eclampsia: (2) Modified White class B pregestational diabetes mellitus: COMMENT: sees endocrine. insulin. growth at 36, 2x weekly nsts, deliver at 39 (3) History of hemorrhage, currently : COMMENT: 1000cc EMB at c section:cytotec, hemabate, methergine (4) Contraception management: QUALIFIERS: Contraceptive encounter type: other general counseling and advice Qualified Code(s): Z30.09 - Encounter for other general counseling and advice on contraception COMMENT: wants bilat salping. with CS on 09/05/23 (5) History of section: COMMENT: Rpt planned 09/05/23 0730 JV (6) Segmental and somatic dysfunction of thoracic region: (7) Segmental and somatic dysfunction of lumbar region: (8) Segmental and somatic dysfunction of sacral region: (9) Back pain: QUALIFIERS: Back pain location: low back pain Chronicity: acute Back pain laterality: left Sciatica presence: with sciatica Sciatica laterality: sciatica of left side Qualified Code(s): M54.42 - Lumbago with sciatica, left side (10) History of pre-eclampsia in prior , currently : COMMENT: baseline labs and prot: cr ordered 04/11/23 for spike in bp on this day. (11) Seasonal allergies: (12) Supervision of high-risk : QUALIFIERS: Trimester: second trimester Qualified Code(s): O09.92 - Supervision of high risk , unspecified, second trimester COMMENT: [id number], AFUA 09/10/22 PC Luis Jonah (13) : QUALIFIERS: Weeks of gestation: 34 weeks Qualified Code(s): Z3 A.34 - 34 weeks gestation of COMMENT: nl nipt declined ntd and carrier testing. NIPT low risk. (14) H/O miscarriage, currently : (15) Anxiety and depression: COMMENT: celexa. on zoloft in past. counseling encouraged (16) Obesity (BMI 30-39.9): (17) Hyperlipidemia: QUALIFIERS: Hyperlipidemia type: mixed hyperlipidemia Qualified Code(s): E78.2 - Mixed hyperlipidemia Maternal Data Information AFUA Calculator Estimated Delivery Date Method Current WG Current Estimate 09/11/23 LMP (Certain) 35w 0d Other Estimates 09/09/23 Ultrasound #2 35w 2d Final AFUA: 09/11/23 Final AFUA Source: LMP Gestational age: 35 weeks 0 days [place] Doctor Who Attended Delivery: Ion Clemens Details Operative Information Date of Procedure: 08/07/23 Pre-Operative Diagnosis: 32y/o @ 35 weeks 0 days, severe pre-eclampsia, prior section, Type 2 DM, and desire for permanent sterilization Post-Operative Diagnosis: 32y/o @ 35 weeks 0 days, severe pre-eclampsia, prior section, Type 2 DM, and desire for permanent sterilization Classification: MODE Procedure Type: low transverse black off worker #1: Yudi Moreno Type of Anesthesia: Spinal Anesthesiologist: Kiko Diamond Antibiotic Given: Ancef 2 grams IV x1 Estimated Blood Loss: 700cc Procedure Start Time: 10:52 Time of Delivery: 10:56 Findings Description of Procedure: Procedure: The patient was brought to the operating room and spinal anesthesia was found to be adequate. She was prepped and draped in the normal sterile fashion and was placed in a dorsal supine position with a leftward tilt. Pfannenstiel skin incision was made with a scalpel and carried through to the underlying layers. The fascia was nicked in the midline and extended laterally using Love scissors. The anterior aspect of the fascia was grasped with Mika clamps and the underlying rectus muscles dissected off using the Metzenbaum scissors. The inferior aspect the fascia was also grasped with Mika clamps and the underlying rectus muscle dissected off with the Metzenbaum scissors. The rectus muscles were in the midline. Peritoneum was entered sharply. The uterus was identified and a bladder blade was inserted into the abdomen. Bladder flap was created off the uterus using Metzenbaum scissors. A transverse incision was made with a scalpel and extended laterally manually. The 's head was grasped with the help of my phlebotomy lab assistant and fundal pressure the infant was delivered through the uterine incision without difficulty. The mouth and nares were bulb suctioned. After a 30 second delay the cord was clamped and cut. The was handed off to the awaiting chemical instrumentation officer for routine assessment. Placenta was delivered manually without difficulty. The uterus was exteriorized and cleared of all clots and debris. Incision was closed with an 0 Vicryl suture in a running locked fashion. Second layer of 1-0 monocryl suture was used in imbricating manner to create excellent closure and hemostasis. The right tube was grasped with a Ricardo clamp and the underlying mesosalpinx was cauterized and cut with the ligasure device removing the entire tube and fimbriated end. The same procedure was performed on the opposite side. Both fallopian tubes were passed off for pathology analysis. The uterus was returned to the abdomen. The gutters were cleared of all clots and debris. The peritoneum was closed in a pursestring pattern using a 3-0 Vicryl suture. This muscle was reapproximated with a 3-0 Vicryl. The fascia was closed with an 0 PDS suture. Subcutaneous tissue layer was closed using a plain gut suture. The skin was closed with a 4-0 Monocryl subcuticular stitch. The skin was also sealed with steri-strips. The patient tolerated the procedure well sponge lap and needle counts were correct at each tissue closure plane and the patient is now being brought to the recovery room in stable condition Presentation: Positive for Vertex Amniotic Membrane Rupture Type: Artificial Time of Membrane Ruptured: 1055 Amniotic Fluid Description: Clear Placental Delivery Description: Expressed Cord Vessel Description: 3 Vessels Cord Entanglement: Around neck x 1, loose Nuchal Cord Compression: Without compression A Gender: Male (1 minute): 5 (5 minute): 7 Delayed Cord Clamping: No Complications Risks of Surgery Discussed w/Patient: Anesthesia Risks, Infection, Permanency, Failure Rate of 1 to 2%, Injury to surrounding structure(s) including bowel and bladder and Availability of other non-permanent control options Multi Select Codes Urinary/Genital Urinary/Genital CPT Codes: 99538 C/S+TL
--- NOTE | 2023-08-07 11:51 | DCINST_ITS ---
Discharge Instructions Diet Discharge Diet: No restrictions Activity Discharge Activity: May Not Drive (for 2 weeks or while taking narcotic pain medications.), May Shower and May Take a Tub Bath (in 7 days.) May resume sexual activity in: 4-6 weeks Weight Bearing Status: Full weight bearing Lifting Restrictions: 20 pounds Dressing / Incision Call your doctor if your incision/area has: Continuous Slow Oozing, Sudden Increased Bleeding, Increased Pain/ Swelling, Increased Redness and Foul Smelling Discharge Call your doctor if you observe: Fever of 101 or Higher and Using more than 1 pad per hour Suture Line Care: Avoid Pulling/Pushing and Avoid Pinching/Bending Cleanse incision/area with: Soap & Water and Keep Dressing Clean & Dry Follow Up Care Please Follow Up With: Chuyita Langston DO When: Call [phone] to make an appointment for an incision check in 1-2 weeks. Test Results: Test results from this visit will be discussed in further detail at your follow- up appointment, if applicable. Discharge Plan Admission Admit Date/Time: 08/07/23 09:19 Attending Provider: Chuyita Langston Primary Care Provider: Mariana Guerrero Discharge Orders/Prescriptions Prescriptions: No Action insulin aspart U-100 [Novolog FlexPen U-100 Insulin] 100 unit/mL (3 mL) insulin pen 6 unit subcut QACDINNER insulin degludec [Tresiba FlexTouch U-100] 100 unit/mL (3 mL) insulin pen 22 unit subcut QHS Qty: 6 4RF famotidine [Pepcid] 20 mg tablet 20 mg PO BID Qty: 60 6RF [id number] 1 mg Tablet 1 tab PO QHS citalopram 40 mg tablet 40 mg PO QHS (DME) blood-glucose meter Misc See Rx Instructions .MEDSUPPLY Qty: 1 0RF Rx Instructions: As directed- Test fasting and 2 hours after meals (DME) lancets Misc See Rx Instructions .MEDSUPPLY Qty: 200 8RF Rx Instructions: As directed-fasting & 2 HR post meals (DME) Blood Glucose Test Strip See Rx Instructions .Route Qty: 120 8RF Rx Instructions: As directed-fasting & 2 HR after meals (DME) pen needle, diabetic [BD Ultra-Fine Leslee Pen Needle] 32 gauge x 5/32 needle See Rx Instructions .ROUTE .MEDSUPPLY Qty: 50 1RF Rx Instructions: As directed albuterol sulfate 90 mcg/actuation HFA aerosol inhaler 2 inh inhalation Q4H PRN (Reason: shortness of breath or wheezing) Qty: 8.5 0RF Referrals / Follow Up: Mariana Guerrero DO [Primary Care Provider] -
[2023-08-07 12:10] LABS: Bedside Glucose 92 mg/dL (74-106)
[2023-08-07] MEDS: Oxytocin 15 Units/NS 250ml 15 UNITS/250 ML IV.SOLN 83 UNITS IV (12:10)
[2023-08-07 13:27] LABS: Pathology Specimen OB SEE PATHOLOGY REPORT
[2023-08-07] MEDS: Ketorolac 30 MG/ML Syringe IV (13:50)
[2023-08-07 15:08] LABS: Absolute Lymphocyte Count 2.29 X10^3/uL (0.83-4.51); Absolute Neutrophil Count 8.6 X10^3/uL (2.0-7.7); Basophil# 0.05 X10^3/uL; Basophil% 0.4 % (0-1); Eosinophil# 0.12 X10^3/uL; Lymphocyte # 2.29 X10^3/ul (0.83-4.51); Lymphocyte % 19.2 % (19-41); Monocyte# 0.78 X10^3/uL; Monocyte% 6.5 % (0-10); NRBC Flagged by Analyzer 0 % (0-5); Neutrophil # 8.59 X10^3/uL (2.7-7.7); Neutrophil % 71.9 % (47-70)
[2023-08-07] MEDS: Lactated Ringers 1,000 ML 100 ML IV (15:24)
[2023-08-07] MEDS: LACTATED RINGERS 500 ML 999 ML IV (15:27)
[2023-08-07 15:47] LABS: Absolute Lymphocyte Count 1.83 X10^3/uL (0.83-4.51); Absolute Neutrophil Count 14.7 X10^3/uL (2.0-7.7); Basophil# 0.04 X10^3/uL; Basophil% 0.2 % (0-1); Eosinophil# 0.03 X10^3/uL; Eosinophils% 0.2 % (0-5); Hematocrit 30.9 % (37-47); Hemoglobin 10.4 g/dL (12.0-15.0); Lymphocyte # 1.83 X10^3/ul (0.83-4.51); Lymphocyte % 10.2 % (19-41); Mean Corp Hgb Conc 33.7 g/dL (32-36); Mean Corpuscular Hgb 28.8 pg (27.0-32.0); Mean Corpuscular Volume 85.6 fL (81-99); Mean Platelet Vol. 10.3 fl (6.2-12.0); Monocyte# 1.13 X10^3/uL; Monocyte% 6.3 % (0-10); NRBC Flagged by Analyzer 0 % (0-5); Neutrophil # 14.71 X10^3/uL (2.7-7.7); Neutrophil % 82.4 % (47-70); Platelet Count 333 K/mm3 (150-450); RBC Distribution Width SD 42.5 fl (35.1-43.9); Red Blood Count 3.61 M/mm3 (4.2-5.4); White Blood Count 17.9 K/mm3 (4.4-11.0)
[2023-08-07 15:52] LABS: Bedside Glucose 95 mg/dL (74-106)
[2023-08-07] MEDS: Famotidine 20 MG Tablet PO (21:55)
[2023-08-07] MEDS: Citalopram 40 MG TABLET PO (21:55)
[2023-08-07] MEDS: Insulin Glargine-YFGN 100 UNIT/ML Pen 11 UNIT SC (21:56)
[2023-08-07 22:19] LABS: Bedside Glucose 122 mg/dL (74-106)
[2023-08-07] MEDS: Enoxaparin 40 MG/0.4 ML Syringe SC (23:08)
[2023-08-08 00:18] VITALS: PULSE 81; RESP 16; O2SAT 97
[2023-08-08 01:55] VITALS: PULSE 81; RESP 16; O2SAT 97
[2023-08-08] MEDS: Ketorolac 30 MG/ML Syringe IV ×2 (01:59→08:06)
[2023-08-08] MEDS: 0.9% Saline Lock 10 ML Syringe IV ×2 (02:00→08:06)
[2023-08-08 04:10] VITALS: BP 133/81; PULSE 91; RESP 16; TEMP 36.4; O2SAT 99
[2023-08-08] MEDS: Acetaminophen 500 MG Tablet 1000 MG PO ×2 (04:19→11:05)
[2023-08-08 05:49] LABS: Hematocrit 25.2 % (37-47); Hemoglobin 8.4 g/dL (12.0-15.0); Mean Corp Hgb Conc 33.3 g/dL (32-36); Mean Corpuscular Volume 86.9 fL (81-99); Mean Platelet Vol. 10.1 fl (6.2-12.0); Platelet Count 310 K/mm3 (150-450); RBC Distribution Width CV 14.1 % (11.6-14.6); RBC Distribution Width SD 43.7 fl (35.1-43.9); White Blood Count 13.5 K/mm3 (4.4-11.0)
[2023-08-08 05:50] VITALS: PULSE 91; RESP 16; O2SAT 98
[2023-08-08 06:02] LABS: Bedside Glucose 80 mg/dL (74-106)
[2023-08-08 07:55] VITALS: BP 133/89; PULSE 100; RESP 16; TEMP 36.9; O2SAT 99
--- NOTE | 2023-08-08 08:16 | PCM.PN.OB ---
Subjective Subjective Patient is laying in bed comfortably without complaints. She states that she slept on an off during the night. Lochia is mild and pain is minimal. Objective Data Objective Data Vital Signs: Vital Signs Temp Pulse Resp BP Pulse Ox O2 Del Method 98.5 F 100 16 133/89 H 99 Room Air 08/08/23 07:55 08/08/23 07:55 08/08/23 07:55 08/08/23 07:55 08/08/23 07:55 08/08/23 07:55 Oxygen Delivery Method Room Air Weight: 249 lb 1.957 oz Body Mass Index (BMI) 37.8 Intake & Output: Intake and Output for Last 24 Hours 08/06/23 08/07/23 08/08/23 23:59 23:59 23:59 Intake Total 3047.65 / 3047.65 Output Total 3150 / 3150 1000 / 1000 Balance -102.35 / -102.35 -1000 / -1000 Lab / Micro Data 08/08/23 05:35 08/07/23 09:00 Labs: Laboratory Results - last 24 hr 08/07/23 09:00: WBC 11.8 H, RBC 3.87 L, Hgb 11.1 L, Hct 32.8 L, MCV 84.8, MCH 28.7, MCHC 33.8, RDW Std Deviation 43.0, RDW Coeff of Tali 14.1, Plt Count 336, MPV 10.0, Immature Gran % (Auto) 1.000 H, Neut % (Auto) 71.9 H, Lymph % (Auto) 19.2, [place] % (Auto) 6.5, Eos % (Auto) 1.0, Baso % (Auto) 0.4, Absolute Neuts (auto) 8.6 H, Absolute Lymphs (auto) 2.29, Nucleated RBC % 0, Creatinine 0.63, Estim Creat Clear Calc 170.63, Est GFR (MDRD) Af Amer 141, Est GFR (MDRD) Non-Af 116, Uric Acid 4.9, AST 16, ALT 19, U Random Total Protein 16.0 H, Urine Creatinine 51.20, Protein/Creatinin Ratio 313 H, Syphilis Total Ab Non-reactive, Blood Type A POSITIVE, Antibody Screen NEGATIVE 08/07/23 10:05: POC Glucose 92 08/07/23 15:33: POC Glucose 95 03/17/24 15:35: WBC 17.9 H, RBC 3.61 L, Hgb 10.4 L, Hct 30.9 L, MCV 85.6, MCH 28.8, MCHC 33.7, RDW Std Deviation 42.5, RDW Coeff of Tali 14.0, Plt Count 333, MPV 10.3, Immature Gran % (Auto) 0.700, Neut % (Auto) 82.4 H, Lymph % (Auto) 10.2 L, [place] % (Auto) 6.3, Eos % (Auto) 0.2, Baso % (Auto) 0.2, Absolute Neuts (auto) 14.7 H, Absolute Lymphs (auto) 1.83, Nucleated RBC % 0 08/07/23 20:16: POC Glucose 122 H 08/08/23 05:35: WBC 13.5 H, RBC 2.90 L, Hgb 8.4 L, Hct 25.2 L, MCV 86.9, MCH 29.0, MCHC 33.3, RDW Std Deviation 43.7, RDW Coeff of Tali 14.1, Plt Count 310, MPV 10.1 08/08/23 05:37: POC Glucose 80 ROS Constitutional Constitutional: Reports systems reviewed and no addt'l complaints, except as documented Cardiovascular Cardiovascular: Denies chest pain, dizziness, dyspnea or irregular heart rhythm Respiratory/Chest Respiratory/Chest: Denies cough, pain on inspiration or shortness of breath at rest Gastrointestinal Gastrointestinal: Denies abdominal pain, nausea or vomiting Genitourinary Genitourinary: Denies burning urination Musculoskeletal Musculoskeletal: Denies muscle cramps, muscle spasms or muscle weakness Neurologic Neurologic: Denies confusion, dizziness, headache(s) or lack of coordination Psychiatric Psychiatric: Denies anxiety, behavioral changes or depression Physical Exam HEENT normocephalic Resp normal respiratory effort and normal air movement GI soft to palpation, non-tender and non-distended Rectal Exam: other Other Details: Incision is clean, dry, and intact no CVA tenderness Extremity normal to inspection General Extremity: edema bilateral (trace ) Assessment & Plan (1) Severe pre-eclampsia: (2) Modified White class B pregestational diabetes mellitus: COMMENT: sees endocrine. insulin. growth at 36, 2x weekly nsts, deliver at 39 (3) Supervision of high-risk : QUALIFIERS: Trimester: second trimester Qualified Code(s): O09.92 - Supervision of high risk , unspecified, second trimester COMMENT: [id number], AFUA 09/10/22 PC [place] PLAN: Plan s/p LTCS PPD # 1 1. routine post care 2. breast feeding- support given- baby in [place]. She would like to see him today 3. rh positive 4. rubella immune 5. gdm- insulin cut in half for now 6. home with labetalol and to only start if bp's get to 140-150/90's or higher. pt to call if starts and will go to [facility] with a bp cuff from our unit.
[2023-08-08] MEDS: Famotidine 20 MG Tablet PO (10:04)
[2023-08-08] MEDS: Senna/Docusate Sodium 1 Tablet PO (10:04)
[2023-08-08 10:27] VITALS: BP 132/92; RESP 16
[2023-08-08] MEDS: Labetalol 100 MG Tablet PO (11:05)
--- NOTE | 2023-08-08 11:29 | CASEMGMT ---
Social Work Assessment Labor and Delivery Unit Patient Address:[address] [place] [address] [place] [address] Phone number: [phone] Date of Referral: 08/07/23 Time of Referral:? 1443 Referred By: Chuyita Langston Date of Intervention: ??08/08/23 Time of Intervention:? 1045 Reason for Referral:? mental health Sw completed chart review and recognizes sw consult due to maternal mental health history. Sw presented to bedside and introduced self to mother of baby (RENE Gonzalez). Sw explained sw role during hospitalization and completed psychosocial assessment. MAI had visitor present, her sister, and states that it was okay to complete assessment History obtained from: medical records, MOB Household composition: Currently residing in the family home is CHRISTIANA ONEILL, their 3 year old daughter, Luis and now baby. MAI denies any issues or concerns with current housing. Patient's parent/guardian status:? MAI states that she and CHRISTIANA met through work and mutual friends, they have been together for 9 years. No concerns regarding domestic violence or intimate partner violence. ? Medical History: ?MAI is 32 year old Caucaian female who is 3, para 1- now 2 following labor and delivery of . MAI received routine care during with [place]. MAI presented for emergent delivery of baby via repeat at 35 weeks gestation due to pre-eclampsia. Baby boy, named Wander, was born weighing 6lb 6oz and his apgars were 5,7, and 8 at one, five and ten minutes of life, respectfully. Baby was transferred to [facility] NICU due to respiratory distress and feeding difficulties. Baby will be followed by Dr. Henning. Educational Status:? Both parents obtained Bachelor's degrees. No concerns with reading, learning or comprehension. Financial Status: Both parents are gainfully employed outside of the home. MAI works for [employer]- she is able to take 14 weeks off of work. CHRISTIANA works for [employer] and is able to take two weeks off of work. Infant Supplies:??MAI states that both parents have obtained all baby supplies, including: car seat, safe sleep space, clothes, diapers and wipes. MAI states that she is bottle feeding and has all necessary feeding supplies. Childcare/Caregiver(s):? MOB will be primary caregiver to baby, along with FOB when he is not at work. MOB states that when both parents have returned to work they have some family members who will be able to help with childcare. Transportation:?? Both parents have their drivers license and reliable means of transportation. No barriers. Programs/Agencies Involved: ??MOB denies linkage to community resources that assist them financially. NO counseling supports/ services. ? Children Services/Legal Issues:?No history or involvement, no issues or concerns warranting referral at this time. ?? Behavioral Health Issues: ??Mental Health History:?MOB states that CHRISTIANA does not have any mental health diagnoses, MOB states that she has been diagnosed with anxiety. MAI is prescribed citalopram by her OBGYN. MOB states that she is not connected to any mental health services or supports. ?? Substance Use History:?MOB denies substance use prior to and during . ? Family History:??MOB denies family history of mental health and substance use or addiction issues. ??? Drug Screens: ??No drug screens observed during chart review. Family/Social Stressors:? MOB denies any stressors or concerns at this time. Even though baby is admitted to NICU at [facility], MAI does not seem overwhelmed or stressed by this. MOB states that she is somewhat worried about balancing time between her daughter and due to her daughter not being able to visit NICU. Support Systems: MAI states that her mom and her sister are her biggest supports at this time. Depression/Shaken Baby/Safe Sleeping:? Sw educated MOB on signs and symptoms of baby blues and depression and anxiety. MOB expressed understanding. Sw educated MOB on shaken baby prevention and ABCs of safe sleep. MOB expressed understanding. MOB states that she did not experience any baby blues or any depression or anxiety following the delivery of her first baby. MOB states that she believes that if she were to struggle FOJenna would be able to recognize a change in her, and would know how to help and support her. ASSESSMENT:? MOB admitted following labor and delivery of . Baby required transfer to [facility] NICU due to respiratory distress and feeding difficulties. MOB receptive to sw involvement and support. MOB states she has obtained all necessary baby supplies and has natural supports in place. MOB has mental health history positive for anxiety, is prescribed psychotropic medications to help manage symptoms. PLAN:? MOB to be discharged when medically ready. ?No other services requested or indicated. Jake Johnson, ANGIOGRAPHER, TISSUE SPECIALIST
== END 2023-08-08 11:15 | disposition home or self-care (01) | DRG 785 ==
LOC: WPOUT 09:23 → WP 09:23
PROVIDERS: Admitting Provider Obstetrics & Gynecology; PCP Family Medicine; Visit Provider Obstetrics & Gynecology
DX: O14.14 Severe pre-eclampsia complicating childbirth (principal); E78.2 Mixed hyperlipidemia; Z79.4 Long term (current) use of insulin; F32.A Depression, unspecified; M54.42 Lumbago with sciatica, left side; F41.9 Anxiety disorder, unspecified; O24.424 Gestational diabetes mellitus in childbirth, insulin controlled; O99.214 Obesity complicating childbirth; O34.211 Maternal care for low transverse scar from previous cesarean delivery; Z37.0 Single live birth; O99.284 Endocrine, nutritional and metabolic diseases complicating childbirth; O99.892 Other specified diseases and conditions complicating childbirth; O99.344 Other mental disorders complicating childbirth; M99.02 Segmental and somatic dysfunction of thoracic region; M99.03 Segmental and somatic dysfunction of lumbar region; M99.04 Segmental and somatic dysfunction of sacral region; Z3A.35 35 weeks gestation of pregnancy; Z30.2 Encounter for sterilization; Z79.899 Other long term (current) drug therapy
CPT/HCPCS: 59025; 59050; 82565; 82570; 82962; 84156; 84450; 84460; 84550; 85025; 85027; 86780; 86850; 86900; 86901; 88302; 88305; 99221; J7120; A4216; G0378; J2405

== ENCOUNTER → 2023-09-16 | Outpatient (CLI) | payer OTHER, SELFPAY ==
[2023-09-16 12:23] LABS: Absolute Lymphocyte Count 4.23 X10^3/uL (0.83-4.51); Absolute Neutrophil Count 5.1 X10^3/uL (2.0-7.7); Basophil# 0.03 X10^3/uL; Basophil% 0.3 % (0-1); Eosinophil# 0.35 X10^3/uL; Eosinophils% 3.4 % (0-5); Hematocrit 36.6 % (37-47); Hemoglobin 12.1 g/dL (12.0-15.0); Lymphocyte # 4.23 X10^3/ul (0.83-4.51); Lymphocyte % 40.9 % (19-41); Mean Corp Hgb Conc 33.1 g/dL (32-36); Mean Corpuscular Hgb 28.1 pg (27.0-32.0); Mean Corpuscular Volume 85.1 fL (81-99); Mean Platelet Vol. 9.5 fl (6.2-12.0); Monocyte# 0.62 X10^3/uL; NRBC Flagged by Analyzer 0 % (0-5); Neutrophil # 5.05 X10^3/uL (2.7-7.7); Neutrophil % 48.9 % (47-70); Platelet Count 360 K/mm3 (150-450); RBC Distribution Width CV 12.9 % (11.6-14.6); RBC Distribution Width SD 39.7 fl (35.1-43.9); White Blood Count 10.3 K/mm3 (4.4-11.0)
[2023-09-16 12:49] LABS: Vitamin D,25 Hydroxy 20.4 ng/mL
[2023-09-16 13:41] LABS: Cholesterol 294 mg/dL (200); Ferritin 17 ng/mL (8-252); High Density Lipoprotein 38 mg/dL; Iron 55 ug/dL (50-170); Iron Binding Capacity,Total 387 ug/dL (250-450); PERCENT IRON SATURATION 14.2 % (15.0-55.0); Triglycerides 587 mg/dL
== END | disposition home or self-care (01) ==
LOC: LAB 11:47
PROVIDERS: PCP Family Medicine; Referring Provider Family Medicine; Visit Provider Family Medicine
DX: O99.810 Abnormal glucose complicating pregnancy (principal); O99.019 Anemia complicating pregnancy, unspecified trimester; O99.280 Endocrine, nutritional and metabolic diseases complicating pregnancy, unspecified trimester; E78.5 Hyperlipidemia, unspecified; E55.9 Vitamin D deficiency, unspecified; Z3A.00 Weeks of gestation of pregnancy not specified
CPT/HCPCS: 36415; 80061; 82306; 82728; 83036; 83540; 83550; 85025

== ENCOUNTER → 2024-06-29 | Outpatient (CLI) | payer OTHER, SELFPAY ==
[2024-06-29 08:19] LABS: Absolute Lymphocyte Count 3.65 X10^3/uL (0.83-4.51); Absolute Neutrophil Count 4.7 X10^3/uL (2.0-7.7); Basophil# 0.05 X10^3/uL; Basophil% 0.5 % (0-1); Eosinophil# 0.24 X10^3/uL; Eosinophils% 2.6 % (0-5); Hematocrit 39.9 % (37-47); Hemoglobin 13.7 g/dL (12.0-15.0); Lymphocyte # 3.65 X10^3/ul (0.83-4.51); Lymphocyte % 39.5 % (19-41); Mean Corp Hgb Conc 34.3 g/dL (32-36); Mean Corpuscular Hgb 28.5 pg (27.0-32.0); Mean Platelet Vol. 9.7 fl (6.2-12.0); Monocyte# 0.62 X10^3/uL; Monocyte% 6.7 % (0-10); NRBC Flagged by Analyzer 0 % (0-5); Neutrophil # 4.65 X10^3/uL (2.7-7.7); Neutrophil % 50.3 % (47-70); Platelet Count 385 K/mm3 (150-450); RBC Distribution Width CV 12.9 % (11.6-14.6); RBC Distribution Width SD 39.1 fl (35.1-43.9); Red Blood Count 4.81 M/mm3 (4.2-5.4); White Blood Count 9.3 K/mm3 (4.4-11.0)
[2024-06-29 08:43] LABS: ALB/GLOB Ratio 1.1 RATIO (0.9-2.4); AST(SGOT) 18 U/L (15-37); Alanine Aminotransfer ALT/SGPT 35 U/L (13-56); Alkaline Phosphatase 85 U/L (45-117); Anion Gap 6 (5-15); BUN 11 mg/dL (7-18); BUN/Creat Ratio 12.6 RATIO (10-20); Calcium,Total 9.2 mg/dL (8.5-10.1); Chloride 106 mmol/L (98-107); Cholesterol 241 mg/dL (200); Creatinine, Serum 0.87 mg/dL (0.55-1.02); EST Glomerular Filtration Rate 80 mL/min (>60); Est Glom Filt Rate - Afr Amer 96 mL/min (>60); Globulin 3.8 g/dL (2.2-4.2); Glucose 96 mg/dL (74-106); High Density Lipoprotein 38 mg/dL; Potassium 4.6 mmol/L (3.5-5.1); Protein, Total 7.8 g/dL (6.4-8.2); Sodium Level 138 mmol/L (136-145); Triglycerides 247 mg/dL; Very Low Density Lipoprotein 49 mg/dL (5-40)
[2024-07-01 15:22] LABS: Hemoglobin A1c 5.3 % (3.8-5.6)
== END | disposition home or self-care (01) ==
LOC: LAB 07:54
PROVIDERS: PCP Family Medicine; Referring Provider Family Medicine; Visit Provider Family Medicine
DX: Z13.6 Encounter for screening for cardiovascular disorders (principal); Z13.228 Encounter for screening for other metabolic disorders; E78.2 Mixed hyperlipidemia
CPT/HCPCS: 36415; 80053; 80061; 83036; 84443; 85025